=== PATIENT | male | born 1945 | race Caucasian/White ===

== ENCOUNTER 2021-01-30 01:04 | Emergency (ER) | payer MEDICARE, SELFPAY ==
--- NOTE | ~2021-01-30 | CT_ITS ---
EXAMINATION: CT HEAD WITHOUT CONTRAST CT CERVICAL SPINE WITHOUT CONTRAST CLINICAL INFORMATION: Fall COMPARISON: None. TECHNIQUE: Multidetector CT imaging of the head and cervical spine was performed without the use of intravenous contrast. Multiplanar reformats are reviewed. This CT examination was performed using dose optimization techniques as appropriate, variously including the following: *Automated exposure control *Adjustment of mA and/or kV according to patient size (this includes techniques or standardized protocols for targeted exams where dose is matched to indication/reason for exam; i.e. extremities or head) *Use of iterative reconstruction technique DLP: 467 mGy-cm. FINDINGS: There is no evidence of acute intracranial hemorrhage or territorial infarction. No abnormal mass effect or midline shift is seen. Ley to white matter differentiation is well preserved. No extra-axial fluid collections are identified. The ventricles are normal in size. Patchy subcortical and periventricular white matter low-attenuation changes statistically related to chronic white matter small vessel ischemic disease.. The osseous structures and soft tissues are normal. Small right mastoid air cell effusion. Paranasal sinuses are clear. Atlantooccipital alignment is maintained. The vertebral bodies and posterior elements align normally. No acute fracture or subluxation. Vertebral body heights are maintained. The cervicomedullary junction and spinal cord are grossly unremarkable. The paraspinal soft tissues are unremarkable. The imaged lung apices are clear CT/CT head/brain wo con IMPRESSION: No acute intracranial pathology. No cervical spine fracture or malalignment.
--- NOTE | ~2021-01-30 | CT_ITS ---
EXAMINATION: CT HEAD WITHOUT CONTRAST CT CERVICAL SPINE WITHOUT CONTRAST CLINICAL INFORMATION: Fall COMPARISON: None. TECHNIQUE: Multidetector CT imaging of the head and cervical spine was performed without the use of intravenous contrast. Multiplanar reformats are reviewed. This CT examination was performed using dose optimization techniques as appropriate, variously including the following: *Automated exposure control *Adjustment of mA and/or kV according to patient size (this includes techniques or standardized protocols for targeted exams where dose is matched to indication/reason for exam; i.e. extremities or head) *Use of iterative reconstruction technique DLP: 467 mGy-cm. FINDINGS: There is no evidence of acute intracranial hemorrhage or territorial infarction. No abnormal mass effect or midline shift is seen. Ley to white matter differentiation is well preserved. No extra-axial fluid collections are identified. The ventricles are normal in size. Patchy subcortical and periventricular white matter low-attenuation changes statistically related to chronic white matter small vessel ischemic disease.. The osseous structures and soft tissues are normal. Small right mastoid air cell effusion. Paranasal sinuses are clear. Atlantooccipital alignment is maintained. The vertebral bodies and posterior elements align normally. No acute fracture or subluxation. Vertebral body heights are maintained. The cervicomedullary junction and spinal cord are grossly unremarkable. The paraspinal soft tissues are unremarkable. The imaged lung apices are clear CT/CT cervical spine wo con IMPRESSION: No acute intracranial pathology. No cervical spine fracture or malalignment.
[2021-01-30 01:10] VITALS: BP 145/84; BP 150/84; PULSE 81; PULSE 88; RESP 16; TEMP 36.8; O2SAT 95; O2SAT 97; BMI 23.6
--- NOTE | 2021-01-30 01:29 | ED_ITS ---
HPI - Fall General Chief Complaint: Fall Stated Complaint: laceration above left eye s/p fall Time Seen by Provider: 01/30/21 01:29 Source: patient and park interpreter Mode of arrival: EMS History of Present Illness HPI Narrative: This is a 75-year-old male with significant past medical history of hypertension diabetes who states he drink 4-6 beers this evening and was going home and when he unlocked is door he fell through the front entrance. He denies tripping over anything and states that this has happened before. He denies any preceding palpitations, shortness of breath, dizziness but states that his vision was narrowing down. He denies losing consciousness but states that his glasses were on his head and does not recall when his last tetanus was administered. Related Data Allergies Allergy/AdvReac Type Severity Reaction Status Date / Time No Known Allergies Allergy Mild NOT Unverified 07/09/20 15:10 APPLICABLE Review of Systems Review of Systems: Pertinent positives and negatives as stated in HPI 10 point review of systems is otherwise negative. [facility] Past Medical History Source: nursing notes reviewed Medical History Diabetes Hypertension Social History Social History Advance Directives: No Advance Directives Information Provided: No Physical Exam Vital Signs: Vital Signs: Last Vital Signs Temp 98.2 F 01/30/21 01:10 Pulse 81 01/30/21 01:10 Resp 16 01/30/21 01:10 BP 145/84 H 01/30/21 01:10 Pulse Ox 95 01/30/21 01:10 Body Mass Index 23.6 VITAL SIGNS: Reviewed. GENERAL: Well developed, well nourished, in no acute distress. HEAD: Normocephalic/3 cm superior left eyebrow laceration that is hemostatic. EYES: PERRLA, EOMI EARS: Ext canals without abnormality, TMs non-bulging and non-erythematous NOSE: Nares patent bilateral OROPHARYNX: no oral lesions noted, posterior pharynx clear, no intraoral lesions noted NECK: C-collar in place, no midline cervical spine tenderness on palpation LUNGS: Normal breath sounds. No adventitious sounds or accessory muscle use. SpO2<95> CARDIOVASCULAR: Regular rate and rhythm without noted murmurs ABDOMEN: Soft, non-tender, non-distended with bowel sounds. NEUROLOGIC: Alert and oriented x 4. Course Course Course Narrative: This is a 75-year-old male with history and clinical prese ntation consistent with vasovagal episode secondary to alcohol intoxication, however will evaluate for evidence of alternative etiologies although felt to be less likely. Review of all investigations is negative for any acute findings to suggest alternate etiologies other than vasovagal near-syncope secondary to alcohol intoxication. Procedures Laceration Laceration 1: Site: face Size (cm): 2.5 Description: linear Depth: simple, single layer Pre-repair: wound explored, irrigated extensively and deep structures intact Skin layer closed with: other (Dermabond) - Fall Lab Data Result diagrams: 01/30/21 02:44 01/30/21 02:44 Labs: Lab Results 01/30/21 01/30/21 01/30/21 Range/Units 02:44 02:44 02:44 WBC 5.5 (4.8-10.8) X10*3/uL RBC 5.52 (4.60-5.80) X10*6/uL Hgb 14.6 (14.0-18.0) g/dl Hct 45.5 (42-52) % MCV 82.4 (80-98) fL MCH 26.4 L (27.0-33.0) pg MCHC 32.1 (31.0-36.0) g/dl RDW 14.4 (11.0-16.0) % Plt Count 178 (160-400) X10*3/uL MPV 10.2 (9.4-12.4) fL Immature Gran % (Auto) 0.4 (0.0-0.4) % Neut % (Auto) 46.2 (45-73) % Lymph % (Auto) 41.7 H (20-40) % [place] % (Auto) 8.2 (2-11) % Eos % (Auto) 3.1 (0-4) % Baso % (Auto) 0.4 (0-2) % Lymph # (Auto) 2.3 (1.2-4.9) X10*3/uL [place] # (Auto) 0.5 (0.1-1.2) X10*3/uL Eos # (Auto) 0.2 (0.0-0.4) X10*3/uL Baso # (Auto) 0.0 (0.0-0.2) X10*3/uL Abs Immat Gran (auto) 0.02 (0.00-0.03) X10*3/uL Absolute Neuts (auto) 2.6 (2.0-8.3) X10*3/uL Absolute Nucleated RBC 0.000 (0.0-0.012) X10*3/uL Nucleated RBC % (auto) 0.0 (0.0-0.2) /100WBC Sodium 139 (135-145) mmol/L Potassium 4.0 (3.3-5.1) mmol/L Chloride 107 (96-108) mmol/L Carbon Dioxide 19 L (22-29) mmol/L Anion Gap 17 (12-20) BUN 12 (9-16) mg/dL Creatinine 1.17 (0.5-1.4) mg/dL Estim Creat Clear Calc 53.7 Estimated GFR > 60 Random Glucose 160 H (60-115) mg/dL Calcium 8.4 (8.4-10.2) mg/dL Total Bilirubin 0.4 (0.0-1.0) mg/dL AST 15 (5-37) U/L ALT 13 (0-40) U/L Alkaline Phosphatase 137 H (39-117) U/L Total Protein 6.4 L (6.5-8.0) g/dL Albumin 4.0 (3.5-5.0) g/dL Ethyl Alcohol 217 mg/dL ECG Data Attestation: I personally reviewed and interpreted this ECG as follows: Interpretation: Normal sinus rhythm, HR-82, no evidence of acute ischemia, AK/QRS/QTC are within normal limits. Discharge Plan Discharge Clinical Impression: Vasovagal near-syncope, Alcohol intoxication, Laceration Patient Disposition: Home, Self-Care Instructions: Laceration (ED), Alcohol Intoxication (ED), Near Syncope (ED), Skin Adhesive Care (ED) Additional Instructions: Rupal un seguimiento con [place] proveedor de atenci?n primaria los pr?ximos 2-3 d?as para keon reevaluaci?n. No deje que el adhesivo cut?rosio se moje yolande 24 horas. No es necesario retirarlo en movimiento y se desprender? gradualmente por s? solo. No dude en volver al servicio de urgencias por cualquier empeoramiento shahid de los s?ntomas. Referrals: Physician,Unknown [Primary Care Provider] - 2 days Print Language: Kazakh
--- NOTE | 2021-01-30 01:31 | ECG_ITS ---
Test Reason : FALL Blood Pressure : / mmHG Vent. Rate : 082 BPM Atrial Rate : 082 BPM P-R Int : 176 ms QRS Dur : 098 ms QT Int : 390 ms P-R-T Axes : 068 042 073 degrees QTc Int : 455 ms Normal sinus rhythm Normal ECG When compared with ECG of 14-AUG-2018 11:47, No significant change was found Referred By: Christine Pang Electronically Signed By:SRINATH SALMERON
[2021-01-30] MEDS: Diphth,Pertus(ACell),Tet Adult 0.5 ML SYRINGE IM (02:09)
[2021-01-30 02:50] LABS: MANUAL DIFF FLAG NO
[2021-01-30 02:51] LABS: Basophils Percent Auto 0.4 % (0-2); Eosinophils Absolute Auto 0.2 X10*3/uL (0.0-0.4); Eosinophils Percent Auto 3.1 % (0-4); Hematocrit 45.5 % (42-52); Hemoglobin 14.6 g/dl (14.0-18.0); Imm Gran Abs Auto 0.02 X10*3/uL (0.00-0.03); Imm Gran Pct Auto 0.4 % (0.0-0.4); Lymphocytes Absolute Auto 2.3 X10*3/uL (1.2-4.9); Lymphocytes Percent Auto 41.7 % (20-40); Mean Corpuscular HGB Conc 32.1 g/dl (31.0-36.0); Mean Corpuscular Hemoglobin 26.4 pg (27.0-33.0); Mean Corpuscular Volume 82.4 fL (80-98); Mean Platelet Volume 10.2 fL (9.4-12.4); Monocytes Absolute Auto 0.5 X10*3/uL (0.1-1.2); Monocytes Percent Auto 8.2 % (2-11); Neutrophils Absolute Auto 2.6 X10*3/uL (2.0-8.3); Neutrophils Percent Auto 46.2 % (45-73); Platelet Count 178 X10*3/uL (160-400); Red Blood Count 5.52 X10*6/uL (4.60-5.80); Red Cell Distribution Width 14.4 % (11.0-16.0); White Blood Count 5.5 X10*3/uL (4.8-10.8)
[2021-01-30 03:18] LABS: Ethanol 217 mg/dL
[2021-01-30 03:21] LABS: Alanine Aminotransferase 13 U/L (0-40); Alkaline Phosphatase 137 U/L (39-117); Anion Gap 17 (12-20); Aspartate Amino Transferase 15 U/L (5-37); Bilirubin Total 0.4 mg/dL (0.0-1.0); Blood Urea Nitrogen 12 mg/dL (9-16); Calcium 8.4 mg/dL (8.4-10.2); Carbon Dioxide 19 mmol/L (22-29); Chloride 107 mmol/L (96-108); Creatinine Clr Calc Pharmacy 53.7; Estimated Glomerular Filt Rate > 60; Glucose Random 160 mg/dL (60-115); Sodium 139 mmol/L (135-145); Total Protein 6.4 g/dL (6.5-8.0)
== END 2021-01-30 04:25 | disposition home or self-care (01) ==
PROVIDERS: Emergency Provider Student in an Organized Health Care Education/Training Program
DX: R55 Syncope and collapse (principal); S01.112A Laceration without foreign body of left eyelid and periocular area, initial encounter; W01.0XXA Fall on same level from slipping, tripping and stumbling without subsequent striking against object, initial encounter; F10.920 Alcohol use, unspecified with intoxication, uncomplicated; Y90.7 Blood alcohol level of 200-239 mg/100 ml; I10 Essential (primary) hypertension; E11.9 Type 2 diabetes mellitus without complications; Z91.81 History of falling; Y93.89 Activity, other specified; Y92.038 Other place in apartment as the place of occurrence of the external cause; Y99.9 Unspecified external cause status
CPT/HCPCS: 12011; 36415; 70450; 72125; 80053; 80320; 85025; 90471; 90715; 93005; 99283; 99284

== ENCOUNTER 2021-02-15 02:13 | Inpatient (IN) | payer MEDICARE, SELFPAY ==
[2021-02-15] VITALS (8 sets, daily range): BP systolic 149–191; BP diastolic 84–97; PULSE 77–96; RESP 16–20; TEMP 36–37.2; O2SAT 96–98; BMI 23.6
--- NOTE | ~2021-02-15 | NM_ITS ---
EXAMINATION: NUCLEAR MEDICINE GI BLEEDING STUDY CLINICAL INFORMATION: Active bleeding seen on colonoscopy. Assess for source of bleed. COMPARISON: CT chest bleed study 02/15/2021 TECHNIQUE: 25 mCi technetium labeled RBCs injected intravenously. Images obtained over the abdomen and pelvis through 60 minutes. FINDINGS: There is no evidence of extravasation of the isotope into the gastrointestinal track. The site of gastrointestinal hemorrhage is not defined. NM/NM GI bleeding IMPRESSION: No extravasation of isotope into the GI tract through 60 minutes. The site of gastrointestinal hemorrhage is not defined.
--- NOTE | ~2021-02-15 | CT_ITS ---
EXAMINATION: CT ABDOMEN AND PELVIS WITHOUT AND WITH CONTRAST CLINICAL INFORMATION: GI bleed COMPARISON: 12/25/2008 TECHNIQUE: Multidetector volumetric imaging was performed from the superior aspect of the liver through the pubic symphysis before and after administration of 80 mL Omnipaque 350 IV contrast. Two-minute delayed acquisition also performed. Sagittal and coronal reformatted images were obtained on the technologist's workstation. This CT examination was performed using dose optimization techniques as appropriate, variously including the following: *Automated exposure control *Adjustment of mA and/or kV according to patient size (this includes techniques or standardized protocols for targeted exams where dose is matched to indication/reason for exam; i.e. extremities or head) *Use of iterative reconstruction technique DLP: 1180 mGy-cm. FINDINGS: LUNG BASES: The lung bases are clear. Coronary artery calcifications are present. LIVER, GALLBLADDER, AND BILIARY TREE: The liver is normal in size, shape, and attenuation. No focal hepatic lesion or biliary ductal dilatation is present. Cholelithiasis. No gallbladder wall thickening or pericholecystic fluid. PANCREAS: Unremarkable. SPLEEN: Unremarkable. ADRENAL GLANDS: Unremarkable. KIDNEYS AND URETERS: The kidneys are normal in size, shape, and attenuation. No hydronephrosis, hydroureter, or calculi seen. No perinephric stranding. Right upper pole 1.1 cm simple cyst. No follow-up necessary. BLADDER: Unremarkable. GASTROINTESTINAL TRACT: The stomach is unremarkable. Duodenal diverticulum noted. The small bowel is normal in caliber. There is no obstruction. Normal appendix. There is diffuse colonic diverticulosis. No diverticulitis. There is no intraluminal arterial blush of contrast. No pooling of contrast on the delayed acquisition to suggest active GI bleed. Of note, there is significant high attenuation seen throughout the colon on the noncontrast acquisition in the right hemicolon associated with multiple diverticula. ABDOMINAL WALL: No significant hernia is appreciated. LYMPH NODES: Normal. VASCULAR: Aortobiiliac stent graft in place within an abdominal aortic aneurysm. PELVIC VISCERA: The prostate and seminal vesicles are unremarkable. OSSEOUS STRUCTURES: No acute or suspicious osseous abnormality. Multilevel degenerative changes of the spine. CT/CT gi bleed abd pel wo/w con IMPRESSION: No evidence of active gastrointestinal bleed. Cholelithiasis.
--- NOTE | 2021-02-15 02:32 | ED_ITS ---
HPI - GI Bleed General Chief complaint: GI Bleed Stated complaint: Rectal Bleeding Time Seen by Provider: 02/15/21 02:28 Source: patient, family () and nipple maker Mode of arrival: ambulatory History of Present Illness HPI Narrative: 75-year-old male with history of hypertension, PCI, asthma who presents with onset of chest tightness and painless rectal bleeding without abdominal pain at 10:00 p.m. this evening. Patient reports 3 episodes of ?like a water faucet?. Patient states that he has a history of peptic ulcer disease and that he has had rectal bleeding 1 other time in [place]. He states his last colonoscopy was approximately 10 years ago and he does not recall being told that he had diverticulosis. The chest pain is tightness, and has improved since onset at 10:00 p.m., radiating into the back but not associated with dizziness, nausea, diaphoresis, shortness of breath. Related Data Home Medications Medication Instructions Recorded Confirmed albuterol sulfate 1 vial INHALATION QID PRN 02/15/21 02/15/21 allopurinol 1 tab PO DAILY 02/15/21 02/15/21 aspirin 1 tab PO DAILY 02/15/21 02/15/21 cholecalciferol (vitamin D3) 1 cap PO DAILY 02/15/21 02/15/21 loratadine 1 tab PO DAILY PRN 02/15/21 02/15/21 losartan 1 tab PO DAILY 02/15/21 02/15/21 Allergies Allergy/AdvReac Type Severity Reaction Status Date / Time No Known Allergies Allergy Mild NOT Unverified 07/09/20 15:10 APPLICABLE Review of Systems Review of Systems: Pertinent positives and negatives as stated in HPI 10 point review of systems is otherwise negative. [facility] Past Medical History Source: nursing notes reviewed Medical History Diabetes Hypertension Social History Social History Alcohol intake: current Alcohol intake frequency: 3 or more drinks per day Smoking Status: Current every day smoker Use of substances other than those prescribed or required for medical reasons: No Advance Directives: No Advance Directives Information Provided: No Physical Exam Vital Signs: Vital Signs: Last Vital Signs Temp 98.0 F 02/15/21 02:29 Pulse 96 02/15/21 02:29 Resp 18 02/15/21 02:29 BP 191/97 H 02/15/21 02:29 Pulse Ox 97 02/15/21 02:29 Body Mass Index 23.6 VITAL SIGNS: Reviewed. GENERAL: Well developed, well nourished, in no acute distress. HEAD: Normocephalic/atraumatic EYES: PERRLA, EOMI OROPHARYNX: no oral lesions noted, posterior pharynx clear NECK: Supple, no adenopathy LUNGS: Normal breath sounds. SpO2<97> CARDIOVASCULAR: Regular rate and rhythm without noted murmurs ABDOMEN: Soft, non-tender, non-distended with bowel sounds. LYUDMILA: No inflamed external hemorrhoids noted, minimal volume and rectal vault, dark/maroon stool on finger tip, good rectal tone. NEUROLOGIC: Alert and oriented x 4. Course Course Course Narrative: 75-year-old male with history and clinical presentation consistent with GI bleed secondary to diverticular/ischemic, less likely hemorrhoidal or upper GI bleed. Will concomitantly rule out ACS, ulcer but doubt the former. Review of all investigations indicative of GI bleed with hematocrit decreased from 45.5 on 01/[address] scan negative for active GI bleed. Troponin is 4.4 without changes noted on EKG and 2nd troponin will be repeated at 6:00 a.m., but felt to be less likely the etiology for patient's epigastric discomfort. This case was discussed with both GI as well as the inpatient hospitalist team who is agreeable for admission. Reevaluation(s) Reevaluation #1: I discussed case with Dr. Crabtree who agrees with current plan of care and will see the patient in the morning. Time: 04:22 [facility] - GI Bleed Lab Data Result diagrams: 02/15/21 02:47 02/15/21 02:47 Labs: Lab Results 02/15/21 02/15/21 02/15/21 Range/Units 02:47 02:47 02:47 WBC 6.6 (4.8-10.8) X10*3/uL RBC 4.90 (4.60-5.80) X10*6/uL Hgb 13.4 L (14.0-18.0) g/dl Hct 41.2 L (42-52) % MCV 84.1 (80-98) fL MCH 27.3 (27.0-33.0) pg MCHC 32.5 (31.0-36.0) g/dl RDW 14.9 (11.0-16.0) % Plt Count 190 (160-400) X10*3/uL MPV 10.1 (9.4-12.4) fL Immature Gran % (Auto) 0.3 (0.0-0.4) % Neut % (Auto) 63.0 (45-73) % Lymph % (Auto) 23.8 (20-40) % [place] % (Auto) 8.1 (2-11) % Eos % (Auto) 3.9 (0-4) % Baso % (Auto) 0.9 (0-2) % Lymph # (Auto) 1.6 (1.2-4.9) X10*3/uL [place] # (Auto) 0.5 (0.1-1.2) X10*3/uL Eos # (Auto) 0.3 (0.0-0.4) X10*3/uL Baso # (Auto) 0.1 (0.0-0.2) X10*3/uL Abs Immat Gran (auto) 0.02 (0.00-0.03) X10*3/uL Absolute Neuts (auto) 4.2 (2.0-8.3) X10*3/uL Absolute Nucleated RBC 0.000 (0.0-0.012) X10*3/uL Nucleated RBC % (auto) 0.0 (0.0-0.2) /100WBC PT 12.9 (10.8-13.0) SEC INR 1.1 (0.9-1.1) Sodium 139 (135-145) mmol/L Potassium 3.7 (3.3-5.1) mmol/L Chloride 106 (96-108) mmol/L Carbon Dioxide 22 (22-29) mmol/L Anion Gap 15 (12-20) BUN 12 (9-16) mg/dL Creatinine 1.02 (0.5-1.4) mg/dL Estim Creat Clear Calc 61.6 Estimated GFR > 60 Random Glucose 207 H (60-115) mg/dL Calcium 8.7 (8.4-10.2) mg/dL Total Bilirubin 0.6 (0.0-1.0) mg/dL AST 17 (5-37) U/L ALT 15 (0-40) U/L Alkaline Phosphatase 119 H (39-117) U/L Troponin I High Sens (<3.5-35.0) ng/L Total Protein 6.3 L (6.5-8.0) g/dL Albumin 4.0 (3.5-5.0) g/dL Lipase 63 (8-78) U/L Stool Occult Blood (NEGATIVE) Ethyl Alcohol mg/dL COVID-19 ([facility]) (Negative) COVID-19 Clin Com Blood Type Antibody Screen 02/15/21 02/15/21 02/15/21 Range/Units 02:47 02:47 02:47 WBC (4.8-10.8) X10*3/uL RBC (4.60-5.80) X10*6/uL Hgb (14.0-18.0) g/dl Hct (42-52) % MCV (80-98) fL MCH (27.0-33.0) pg MCHC (31.0-36.0) g/dl RDW (11.0-16.0) % Plt Count (160-400) X10*3/uL MPV (9.4-12.4) fL Immature Gran % (Auto) (0.0-0.4) % Neut % (Auto) (45-73) % Lymph % (Auto) (20-40) % [place] % (Auto) (2-11) % Eos % (Auto) (0-4) % Baso % (Auto) (0-2) % Lymph # (Auto) (1.2-4.9) X10*3/uL [place] # (Auto) (0.1-1.2) X10*3/uL Eos # (Auto) (0.0-0.4) X10*3/uL Baso # (Auto) (0.0-0.2) X10*3/uL Abs Immat Gran (auto) (0.00-0.03) X10*3/uL Absolute Neuts (auto) (2.0-8.3) X10*3/uL Absolute Nucleated RBC (0.0-0.012) X10*3/uL Nucleated RBC % (auto) (0.0-0.2) /100WBC PT (10.8-13.0) SEC INR (0.9-1.1) Sodium (135-145) mmol/L Potassium (3.3-5.1) mmol/L Chloride (96-108) mmol/L Carbon Dioxide (22-29) mmol/L Anion Gap (12-20) BUN (9-16) mg/dL Creatinine (0.5-1.4) mg/dL Estim Creat Clear Calc Estimated GFR Random Glucose (60-115) mg/dL Calcium (8.4-10.2) mg/dL Total Bilirubin (0.0-1.0) mg/dL AST (5-37) U/L ALT (0-40) U/L Alkaline Phosphatase (39-117) U/L Troponin I High Sens 4.4 (<3.5-35.0) ng/L Total Protein (6.5-8.0) g/dL Albumin (3.5-5.0) g/dL Lipase (8-78) U/L Stool Occult Blood POSITIVE (NEGATIVE) Ethyl Alcohol < 10 mg/dL COVID-19 ([facility]) (Negative) COVID-19 Clin Com Blood Type Antibody Screen 02/15/21 02/15/21 02/15/21 Range/Units 02:47 02:47 02:52 WBC (4.8-10.8) X10*3/uL RBC (4.60-5.80) X10*6/uL Hgb (14.0-18.0) g/dl Hct (42-52) % MCV (80-98) fL MCH (27.0-33.0) pg MCHC (31.0-36.0) g/dl RDW (11.0-16.0) % Plt Count (160-400) X10*3/uL MPV (9.4-12.4) fL Immature Gran % (Auto) (0.0-0.4) % Neut % (Auto) (45-73) % Lymph % (Auto) (20-40) % [place] % (Auto) (2-11) % Eos % (Auto) (0-4) % Baso % (Auto) (0-2) % Lymph # (Auto) (1.2-4.9) X10*3/uL [place] # (Auto) (0.1-1.2) X10*3/uL Eos # (Auto) (0.0-0.4) X10*3/uL Baso # (Auto) (0.0-0.2) X10*3/uL Abs Immat Gran (auto) (0.00-0.03) X10*3/uL Absolute Neuts (auto) (2.0-8.3) X10*3/uL Absolute Nucleated RBC (0.0-0.012) X10*3/uL Nucleated RBC % (auto) (0.0-0.2) /100WBC PT (10.8-13.0) SEC INR (0.9-1.1) Sodium (135-145) mmol/L Potassium (3.3-5.1) mmol/L Chloride (96-108) mmol/L Carbon Dioxide (22-29) mmol/L Anion Gap (12-20) BUN (9-16) mg/dL Creatinine (0.5-1.4) mg/dL Estim Creat Clear Calc Estimated GFR Random Glucose (60-115) mg/dL Calcium (8.4-10.2) mg/dL Total Bilirubin (0.0-1.0) mg/dL AST (5-37) U/L ALT (0-40) U/L Alkaline Phosphatase (39-117) U/L Troponin I High Sens (<3.5-35.0) ng/L Total Protein (6.5-8.0) g/dL Albumin (3.5-5.0) g/dL Lipase Cancelled (8-78) U/L Stool Occult Blood (NEGATIVE) Ethyl Alcohol mg/dL COVID-19 ([facility]) Negative (Negative) COVID-19 Clin Com See Note Blood Type B Positive Antibody Screen NEGATIVE ECG Data Attestation: I personally reviewed and interpreted this ECG as follows: Prior ECG tracings: available for review (01/30/2021, no acute changes on comparison) Interpretation: Normal sinus rhythm, HR -90, no evidence of acute ischemia, CT/QRS/QTC are within normal limits. Discharge Plan Discharge Clinical Impression: Acute GI bleeding, Chest pain Patient Disposition: Admitted As Inpatient
--- NOTE | 2021-02-15 02:45 | ECG_ITS ---
Test Reason : GI BLEED Blood Pressure : / mmHG Vent. Rate : 090 BPM Atrial Rate : 090 BPM P-R Int : 154 ms QRS Dur : 092 ms QT Int : 364 ms P-R-T Axes : 068 045 088 degrees QTc Int : 445 ms Normal sinus rhythm Normal ECG When compared with ECG of 30-JAN-2021 02:36, No significant change was found Referred By: Christine Pang Electronically Signed By:CHEKO DEL CID MD
[2021-02-15 02:58] LABS: MANUAL DIFF FLAG NO
[2021-02-15 03:00] LABS: Basophils Absolute Auto 0.1 X10*3/uL (0.0-0.2); Basophils Percent Auto 0.9 % (0-2); Eosinophils Absolute Auto 0.3 X10*3/uL (0.0-0.4); Eosinophils Percent Auto 3.9 % (0-4); Hematocrit 41.2 % (42-52); Hemoglobin 13.4 g/dl (14.0-18.0); Imm Gran Abs Auto 0.02 X10*3/uL (0.00-0.03); Imm Gran Pct Auto 0.3 % (0.0-0.4); Lymphocytes Absolute Auto 1.6 X10*3/uL (1.2-4.9); Lymphocytes Percent Auto 23.8 % (20-40); Mean Corpuscular HGB Conc 32.5 g/dl (31.0-36.0); Mean Corpuscular Hemoglobin 27.3 pg (27.0-33.0); Mean Corpuscular Volume 84.1 fL (80-98); Mean Platelet Volume 10.1 fL (9.4-12.4); Monocytes Absolute Auto 0.5 X10*3/uL (0.1-1.2); Monocytes Percent Auto 8.1 % (2-11); Neutrophils Absolute Auto 4.2 X10*3/uL (2.0-8.3); OBS Int Ctl Valid YES; OBS1 POSITIVE (NEGATIVE); Platelet Count 190 X10*3/uL (160-400); Red Cell Distribution Width 14.9 % (11.0-16.0); White Blood Count 6.6 X10*3/uL (4.8-10.8)
[2021-02-15] MEDS: Pantoprazole Sodium 40 MG/10 ML VIAL 80 MG IVPUSH (03:03)
[2021-02-15 03:05] LABS: INTERNATIONAL NORM RATIO 1.1 (0.9-1.1); Prothrombin Time 12.9 SEC (10.8-13.0)
[2021-02-15 03:17] LABS: COVID-19 Test Negative (Negative); IDNOW Serial# 9DD0AD1C
[2021-02-15 03:19] LABS: Ethanol < 10 mg/dL
[2021-02-15 03:22] LABS: Alanine Aminotransferase 15 U/L (0-40); Alkaline Phosphatase 119 U/L (39-117); Anion Gap 15 (12-20); Aspartate Amino Transferase 17 U/L (5-37); Bilirubin Total 0.6 mg/dL (0.0-1.0); Blood Urea Nitrogen 12 mg/dL (9-16); Calcium 8.7 mg/dL (8.4-10.2); Carbon Dioxide 22 mmol/L (22-29); Chloride 106 mmol/L (96-108); Creatinine Clr Calc Pharmacy 61.6; Estimated Glomerular Filt Rate > 60; Glucose Random 207 mg/dL (60-115); Potassium 3.7 mmol/L (3.3-5.1); Sodium 139 mmol/L (135-145); Total Protein 6.3 g/dL (6.5-8.0)
[2021-02-15 03:26] LABS: Troponin-I High Sensitivity 4.4 ng/L (<3.5-35.0)
[2021-02-15 03:29] LABS: Lipase 63 U/L (8-78)
[2021-02-15] MEDS: iohexoL 350 MG/ML 100 ML INFUS..BTL 80 ML IV (03:48)
--- NOTE | 2021-02-15 04:40 | P.HPHOSP_ITS ---
History of Present Illness Date of Service: 02/15/21 Chief Complaint: GI bleed This is a 75-year-old male with past medical history abuse who present to hospital with complaints of lower GI bleed. at bedside helped with history as patient is Serbian-speaking only. Patient reports that he went to the [place] around 10:00 p.m. and had 1 large episode of bloody bowel movement, he had 2 more episodes following that while at home, and 1 more smaller episode in the ED. denies abdominal pain, denies nausea or vomiting, no diarrhea constipation. He report he had 1 similar episode 10 years ago and at that time he was told that he had ulcers in the stomach. He denies taking any Aleve Motrin no ibuprofen or any other NSAID. He is of low complaining of midsternal chest tightness that is reproducible nonradiating, 5/10, that has now resolved. He has no shortness of breath, no headache or change in vision. He is complaining of decreased urine output and dysuria. Denies any fever or chills. No lower extremity edema. No numbness or tingling On arrival to the ED patient hemodynamically stable Lab significant for hemoglobin of 13.4 which has dropped from 14.6 on 01/30/21, hematocrit of 41.2, alk-phos of 119, CMP otherwise unremarkable. Positive stool occult blood, negative COVID Abd CT shows diverticulosis and nothing to suggest acute GI bleed Review of Systems Review of Systems: Yes all other systems are reviewed and are negative [facility] Medical History Diabetes Hypertension Social History Alcohol intake: current Alcohol intake frequency: 3 or more drinks per day Smoking Status: Current every day smoker Use of substances other than those prescribed or required for medical reasons: No Advance Directives: No Advance Directives Information Provided: No Meds Allergies Allergy/AdvReac Type Severity Reaction Status Date / Time No Known Allergies Allergy Mild NOT Unverified 07/09/20 15:10 APPLICABLE Home Medications Medication Instructions Recorded Confirmed Last Taken Type albuterol sulfate 1 vial INHALATION QID PRN 02/15/21 02/15/21 1 Day Ago History ~02/14/21 allopurinol 1 tab PO DAILY 02/15/21 02/15/21 1 Day Ago History ~02/14/21 aspirin 1 tab PO DAILY 02/15/21 02/15/21 1 Day Ago History ~02/14/21 cholecalciferol (vitamin D3) 1 cap PO DAILY 02/15/21 02/15/21 1 Day Ago History ~02/14/21 loratadine 1 tab PO DAILY PRN 02/15/21 02/15/21 1 Day Ago History ~02/14/21 losartan 1 tab PO DAILY 02/15/21 02/15/21 1 Day Ago History ~02/14/21 Physical Exam Vital Signs and Narrative: Vital Signs: Last Vital Signs Temp 98.0 F 02/15/21 02:29 Pulse 96 02/15/21 02:29 Resp 18 02/15/21 02:29 BP 191/97 H 02/15/21 02:29 Pulse Ox 97 02/15/21 02:29 Body Mass Index 23.6 Const: General: cooperative and no acute distress Orientation/consciousness: patient oriented x3 Eyes: General: appearance normal, both eyes and all related structures Resp: Effort & Inspection: normal respiratory effort and able to speak in complete sentences Cardio: Rate: regular rate Rhythm: regular rhythm GI: Palpation (GI): Soft to palpation Auscultation: normal bowel sounds Skin: General skin exam: no rashes or lesions noted Neuro: General: patient oriented x3 Cognition (Neuro): normal cognition Extrem: General: Yes normal to inspection and Yes no pedal edema Results Labs CBC and Chem 7: 02/15/21 02:47 02/15/21 02:47 Labs: Laboratory Results - last 24 hr 02/15/21 02/15/21 02/15/21 02:47 02:47 02:47 MCV 84.1 MCH 27.3 MCHC 32.5 RDW 14.9 Plt Count 190 MPV 10.1 Immature Gran % (Auto) 0.3 Neut % (Auto) 63.0 Lymph % (Auto) 23.8 [place] % (Auto) 8.1 Eos % (Auto) 3.9 Baso % (Auto) 0.9 Lymph # (Auto) 1.6 [place] # (Auto) 0.5 Eos # (Auto) 0.3 Baso # (Auto) 0.1 Abs Immat Gran (auto) 0.02 Absolute Neuts (auto) 4.2 Absolute Nucleated RBC 0.000 Nucleated RBC % (auto) 0.0 PT 12.9 INR 1.1 Anion Gap 15 Estim Creat Clear Calc 61.6 Estimated GFR > 60 Random Glucose 207 H Calcium 8.7 Total Bilirubin 0.6 AST 17 ALT 15 Alkaline Phosphatase 119 H Troponin I High Sens Total Protein 6.3 L Albumin 4.0 Lipase 63 Stool Occult Blood Ethyl Alcohol COVID-19 (ERENDIRA) COVID-19 [employer] Com Blood Type Antibody Screen 02/15/21 02/15/21 02/15/21 02:47 02:47 02:47 MCV MCH MCHC RDW Plt Count MPV Immature Gran % (Auto) Neut % (Auto) Lymph % (Auto) [place] % (Auto) Eos % (Auto) Baso % (Auto) Lymph # (Auto) [place] # (Auto) Eos # (Auto) Baso # (Auto) Abs Immat Gran (auto) Absolute Neuts (auto) Absolute Nucleated RBC Nucleated RBC % (auto) PT INR Anion Gap Estim Creat Clear Calc Estimated GFR Random Glucose Calcium Total Bilirubin AST ALT Alkaline Phosphatase Troponin I High Sens 4.4 Total Protein Albumin Lipase Stool Occult Blood POSITIVE Ethyl Alcohol < 10 COVID-19 (ERENDIRA) COVID-19 [employer] Com Blood Type Antibody Screen 02/15/21 02/15/21 02/15/21 02:47 02:47 02:52 MCV MCH MCHC RDW Plt Count MPV Immature Gran % (Auto) Neut % (Auto) Lymph % (Auto) [place] % (Auto) Eos % (Auto) Baso % (Auto) Lymph # (Auto) [place] # (Auto) Eos # (Auto) Baso # (Auto) Abs Immat Gran (auto) Absolute Neuts (auto) Absolute Nucleated RBC Nucleated RBC % (auto) PT INR Anion Gap Estim Creat Clear Calc Estimated GFR Random Glucose Calcium Total Bilirubin AST ALT Alkaline Phosphatase Troponin I High Sens Total Protein Albumin Lipase Cancelled Stool Occult Blood Ethyl Alcohol COVID-19 (ERENDIRA) Negative COVID-19 Video[employer]ax Com See Note Blood Type B Positive Antibody Screen NEGATIVE Imaging Radiologist's Impressions: Impressions Abdomen/Pelvis CT 02/15/21 02:49 IMPRESSION: No evidence of active gastrointestinal bleed. Cholelithiasis. Assessment and Plan (1) Acute GI bleeding: Status: Acute (2) Chest pain: Status: Acute 75-year-old male with past medical history of hypertension diabetes who presents the hospital GI bleed. # acute GI bleed - most likely diverticular bleed - CT of the abdomen/pelvic showed significant amount of diverticulosis throughout the colon with no evidence of acute GI bleed - occult stool blood positive - hemodynamically stable - denies ever undergoing colonoscopy in the past Plan: - will start him on Protonix 40 IV b.i.d. - stop aspirin - NPO - consult GI #Chest pain - unlikely to be cardiac - trop -ve x2, no ekg changes - follow for any recurrence # Dysuria - UA -ve for any infection # DM - LDSSI - Diabetic diet # Alcohol abuse - Drinks 3-4 drinks daily - last drink >3 days - No hx of withdrawal and no current evidence of withdrawal - alcohol level -ve - Will place on CIWA, if scores high, start phenobarb - thiamine and folic acid supplement # HTN - Elevated - resume home med DVT ppx: SCDs
[2021-02-15 04:41] LABS: Glucose Urine UA 100 MG/DL (NEG); Leukocyte Esterase Urine NEG (NEG); Nitrite Urine NEG (NEG); PH 5.5 (5.0-8.0); Urine Blood NEG (NEG); Urine Ketones NEG (NEG); Urine Protein NEG (NEG-TRACE)
[2021-02-15 04:44] LABS: Appearance Urine CLEAR; Color Urine STRAW; UACC Culture Trigger NO
[2021-02-15 07:16] LABS: Glucose, Whole Blood 205 mg/dL (60-115)
[2021-02-15] MEDS: Insulin Lispro 100 UNIT/ML 3 ML VIAL SUBCUT (07:23)
[2021-02-15 07:26] LABS: Troponin-I High Sensitivity 4.7 ng/L (<3.5-35.0)
[2021-02-15] MEDS: 0.9 % Sodium Chloride Flush 3 ML SYRINGE IVFLUSH ×2 (07:39→16:15)
[2021-02-15] MEDS: allopurinoL 300 MG TABLET PO (08:41)
[2021-02-15] MEDS: Thiamine HCL 100 MG TABLET PO (08:41)
[2021-02-15] MEDS: Losartan Potassium 50 MG TABLET PO (08:41)
[2021-02-15] MEDS: Folic Acid 1 MG TABLET PO (08:41)
[2021-02-15 10:34] LABS: Hematocrit 40.1 % (42-52)
[2021-02-15 12:19] LABS: Glucose, Whole Blood 156 mg/dL (60-115)
--- NOTE | 2021-02-15 13:12 | PM.GICN ---
History of Present Illness Data of Consult Service Date: 02/15/21 Requesting physician: Jenna Ellison Primary Care Provider: Unknown Physician HPI Reason for consult: anemia 75-year-old male with past medical history of HTN, and gout as well as alcohol abuse who I am seeing for assessment Patient had 3-4 bloody bowel motions overnight. denies abdominal pain, denies nausea or vomiting, no diarrhea constipation.He did have some chest discomfort which resolved. He denies taking any Alleve, Motrin, ibuprofen or any other NSAID. Does admit to drinking shots of whiskey ot vodka once a month a least, feels he does not have an alcohol issue. This had happened in the past and he was told it was attributable to ulcers in stomach. Lab significant for hemoglobin of 13.4 which has dropped from 14.6 on 01/30/21, hematocrit of 41.2, alk-phos of 119, CMP otherwise unremarkable. Positive stool occult blood, negative COVID, trop neg x [address] shows [place] diverticulosis, no acute bleeding noted but high density material noted in right colon Review of Systems Review of Systems: Pertinent positives and negatives as stated in HPI 10 point review of systems is otherwise negative. Yes all other systems are reviewed and are negative [facility] Past Medical History Medical History Diabetes Hypertension Social History Social History Household Members: None Housing: Apartment Do you presently have visiting nurse or other home services: Yes Alcohol intake: current Alcohol intake frequency: 3 or more drinks per day Smoking Status: Never smoker Second Hand Smoke Exposure: No Use of substances other than those prescribed or required for medical reasons: No Have you been hit, kicked, punched, or otherwise hurt by someone within the past year? If so, by whom?: No Do you feel safe in your current relationship?: No Is there a partner from a previous relationship who is making you feel unsafe now?: No Advance Directives: No Advance Directives Information Provided: No Do you have thoughts of harming others: None Do you have a plan to hurt others: No Plan Recently lost weight without trying: No Meds Allergies Allergy/AdvReac Type Severity Reaction Status Date / Time No Known Allergies Allergy Mild NOT Unverified 07/09/20 15:10 APPLICABLE Active Medications: Current Medications Generic Name Dose Route Start Last Admin Trade Name Freq PRN Reason Stop Dose Admin Acetaminophen 650 mg 02/15/21 04:48 Acetaminophen 325 Mg Tablet PO Q6H PRN Pain, Mild (Pain Scale 1-3) Albuterol Sulfate 2.5 mg 02/15/21 04:48 Albuterol Sulfate (0.083%) 2.5 Mg/3 Ml Vial.Neb INHALE QID PRN Wheezing Allopurinol 300 mg 02/15/21 09:00 02/15/21 08:41 Allopurinol 300 Mg Tablet PO 300 mg DAILY FLAVIO Administration Docusate Sodium 100 mg 02/15/21 04:48 Docusate Sodium 100 Mg Capsule PO DAILY PRN Constipation Folic Acid 1 mg 02/15/21 09:00 02/15/21 08:41 Folic Acid 1 Mg Tablet PO 1 mg DAILY FLAVIO Administration Insulin Human Lispro 0 unit 02/15/21 07:30 02/15/21 12:33 Insulin Lispro 100 Unit/Ml 3 Ml Vial SUBCUT Not Given QIDACHS [facility] Protocol Losartan Potassium 50 mg 02/15/21 09:00 02/15/21 08:41 Losartan Potassium 50 Mg Tablet PO 50 mg DAILY [facility] Administration Protocol Ondansetron HCl 4 mg 02/15/21 04:48 Ondansetron Hcl 4 Mg/2 Ml Vial IVPUSH Q8H PRN Nausea and Vomiting Pantoprazole Sodium 40 mg 02/15/21 16:30 Pantoprazole Sodium 40 Mg/10 Ml Vial IVPUSH BID@0630,1630 [facility] Sodium Chloride 3 ml 02/15/21 08:00 02/15/21 07:39 0.9 % Sodium Chloride Flush 3 Ml Syringe IVFLUSH 3 ml QSHIFT [facility] Administration Thiamine HCl 100 mg 02/15/21 09:00 02/15/21 08:41 Thiamine Hcl 100 Mg Tablet PO 100 mg DAILY [facility] Administration Home Medications Medication Instructions Recorded Confirmed Last Taken Type albuterol sulfate 1 vial INHALATION QID PRN 02/15/21 02/15/21 1 Day Ago History ~02/14/21 allopurinol 1 tab PO DAILY 02/15/21 02/15/21 1 Day Ago History ~02/14/21 aspirin 1 tab PO DAILY 02/15/21 02/15/21 1 Day Ago History ~02/14/21 cholecalciferol (vitamin D3) 1 cap PO DAILY 02/15/21 02/15/21 1 Day Ago History ~02/14/21 loratadine 1 tab PO DAILY PRN 02/15/21 02/15/21 1 Day Ago History ~02/14/21 losartan 1 tab PO DAILY 02/15/21 02/15/21 1 Day Ago History ~02/14/21 Physical Exam Vital Signs: Vital Signs: Last Vital Signs Temp 97.0 F 02/15/21 08:00 Pulse 91 02/15/21 08:41 Resp 18 02/15/21 08:00 BP 165/88 H 02/15/21 08:41 Pulse Ox 98 02/15/21 08:00 Body Mass Index 23.6 Const: General: cooperative and no acute distress Orientation/consciousness: patient oriented x3 Eyes: General: appearance normal, both eyes and all related structures Resp: Effort & Inspection: normal respiratory effort and able to speak in complete sentences Cardio: Rate: regular rate Rhythm: regular rhythm GI: Palpation (GI): Soft to palpation Auscultation: normal bowel sounds Skin: General skin exam: no rashes or lesions noted Neuro: General: patient oriented x3 Cognition (Neuro): normal cognition Extrem: General: Yes normal to inspection and Yes no pedal edema Results Labs CBC & Chem 7: 02/15/21 21:17 02/15/21 02:47 Labs: Short CBC 02/15/21 02/15/21 Range/Units 02:47 10:28 WBC 6.6 (4.8-10.8) X10*3/uL Hgb 13.4 L 13.0 L (14.0-18.0) g/dl Hct 41.2 L 40.1 L (42-52) % Plt Count 190 (160-400) X10*3/uL BMP 02/15/21 02:47 Sodium 139 Potassium 3.7 Chloride 106 Carbon Dioxide 22 BUN 12 Creatinine 1.02 Calcium 8.7 Liver Function 02/15/21 Range/Units 02:47 Total Bilirubin 0.6 (0.0-1.0) mg/dL AST 17 (5-37) U/L ALT 15 (0-40) U/L Alkaline Phosphatase 119 H (39-117) U/L Albumin 4.0 (3.5-5.0) g/dL Urine 02/15/21 Range/Units 04:34 Urine Color STRAW Urine Appearance CLEAR Urine pH 5.5 (5.0-8.0) Ur Specific [place] 1.010 (1.005-1.025) Urine Protein NEG (NEG-TRACE) MG/DL Urine Glucose (UA) 100 H (NEG) MG/DL Assessment and Plan (1) Acute GI bleeding: Status: Acute 1/ Acute blood loss anemia, hemodynamically stable, ddx: diverticular bleed, hemorrhoidal bleeding, polyp or mass, upper gI bleed with rapid transit e.g PUD, erosive gastritis from alcohol use PLAN: 1/ Allow clears 2/ PPI IV-40 mg pantoprazole bid 3/ prep for egd and colon tomorrow 4/ transfuse if hgb < 7 g/dl
--- NOTE | 2021-02-15 13:46 | HO.PM.IMPN ---
Subjective Subjective Date of Service: 02/15/21 <Shelly Shelley NP - Last Filed: 02/15/21 16:02> 02/15/21 <Stas Palacios MD - Last Filed: 02/15/21 16:35> Interval History: Follow up GI bleed. Still some bleeding this morning. No abdominal pain or vomiting. <Shelly Shelley NP - Last Filed: 02/15/21 16:02> Physical Exam Vital Signs: Vital Signs: Last Vital Signs Temp 97.0 F 02/15/21 08:00 Pulse 91 02/15/21 08:41 Resp 18 02/15/21 08:00 BP 165/88 H 02/15/21 08:41 Pulse Ox 98 02/15/21 08:00 Body Mass Index 23.6 <Shelly Shelley NP - Last Filed: 02/15/21 16:02> Appearing in no acute distress lung sounds are clear to auscultation heart regular rate rhythm, clear S1, S2 positive bowel sounds, abdomen is soft, nontender neuro patient is alert x3, no focal deficits <Shelly Shelley NP - Last Filed: 02/15/21 16:02> Objective Data Current Medications Generic Name Dose Route Start Last Admin Trade Name Freq PRN Reason Stop Dose Admin Acetaminophen 650 mg 02/15/21 04:48 Acetaminophen 325 Mg Tablet PO Q6H PRN Pain, Mild (Pain Scale 1-3) Albuterol Sulfate 2.5 mg 02/15/21 04:48 Albuterol Sulfate (0.083%) 2.5 Mg/3 Ml Vial.Neb INHALE QID PRN Wheezing Allopurinol 300 mg 02/15/21 09:00 02/15/21 08:41 Allopurinol 300 Mg Tablet PO 300 mg DAILY FLAVIO Administration Docusate Sodium 100 mg 02/15/21 04:48 Docusate Sodium 100 Mg Capsule PO DAILY PRN Constipation Folic Acid 1 mg 02/15/21 09:00 02/15/21 08:41 Folic Acid 1 Mg Tablet PO 1 mg DAILY FLAVIO Administration Insulin Human Lispro 0 unit 02/15/21 07:30 02/15/21 12:33 Insulin Lispro 100 Unit/Ml 3 Ml Vial SUBCUT Not Given QIDACHS [facility] Protocol Losartan Potassium 50 mg 02/15/21 09:00 02/15/21 08:41 Losartan Potassium 50 Mg Tablet PO 50 mg DAILY FLAVIO Administration Protocol Ondansetron HCl 4 mg 02/15/21 04:48 Ondansetron Hcl 4 Mg/2 Ml Vial IVPUSH Q8H PRN Nausea and Vomiting Pantoprazole Sodium 40 mg 02/15/21 16:30 Pantoprazole Sodium 40 Mg/10 Ml Vial IVPUSH BID@0630,1630 FLAVIO Sodium Chloride 3 ml 02/15/21 08:00 02/15/21 07:39 0.9 % Sodium Chloride Flush 3 Ml Syringe IVFLUSH 3 ml QSHIFT FLAVIO Administration Thiamine HCl 100 mg 02/15/21 09:00 02/15/21 08:41 Thiamine Hcl 100 Mg Tablet PO 100 mg DAILY FLAVIO Administration <Shelly Shelley NP - Last Filed: 02/15/21 16:02> Labs CBC & Chem 7: : 02/15/21 10:28 02/15/21 02:47 <Shelly Shelley NP - Last Filed: 02/15/21 16:02> Assessment and Plan (1) Acute GI bleeding: Status: Acute <Shelly Shelley NP - Last Filed: 02/15/21 16:02> Assessment and Plan: 75-year-old male with past medical history of hypertension diabetes who presents the hospital GI bleed. # Acute GI bleed. Seen and evaluated by GI - most likely diverticular bleed - CT of the abdomen/pelvic showed significant amount of diverticulosis throughout the colon with no evidence of acute GI bleed - occult stool blood positive - hemodynamically stable - denies ever undergoing colonoscopy in the past Plan: - will start him on Protonix 40 IV b.i.d. - stop aspirin - Clears for now NPO after midnight - Colonoscopy tomorrow, colon prep tonight #Chest pain - unlikely to be cardiac - trop neg x2, no ekg changes - follow for any recurrence # Dysuria - UA neg for any infection # Diabetes - SSI - clears # Alcohol abuse - Drinks 3-4 drinks daily - last drink >3 days - No hx of withdrawal and no current evidence of withdrawal - alcohol level neg - Will place on CIWA, if scores high, start phenobarb - thiamine and folic acid supplement # HTN - Elevated - resume home med Attending: Dr. Palacios <Shelly Shelley NP - Last Filed: 02/15/21 16:02> Attending Attestation: Patient seen and examined independently and I was present during gonzalez portion of E/M service. Agree with Piper Shelley NP's history, physical, assessment, and plan. Seen this AM. Likely diverticular bleed. No prior colonoscopy. ALso drinks 3-4 drinks daily. Monitor with CIWA. GI consult: plan for scope tomorrow. <Stas Palacios MD - Last Filed: 02/15/21 16:35>
--- NOTE | 2021-02-15 15:04 | PM.EVENT ---
Event Note Date of Service: 02/15/21 Event Note: GI consult dictated Picture is c/w diverticular bleeding. Appears stable with no active bleeding at this time. He denies having undergone previous colonoscopy. He is agreeable to having this done as and inpatient, and we will plan this for tomorrow.
--- NOTE | 2021-02-15 15:32 | MHC.SHP ---
Pre-Procedural Eval Section A The patient is an INPATIENT: Yes Changes since office visit: No Cold of Flu in the past 2 weeks, No New Medical Problems, No Changes in Medication and No Patient answered all questions The History & Physical has been completed within 30 days and I have reviewed it.: Yes Section B Chief Complaint: GI Bleed Allergies: Allergies Allergy/AdvReac Type Severity Reaction Status Date / Time No Known Allergies Allergy Mild NOT Unverified 07/09/20 15:10 APPLICABLE Plan I have reviewed the history and physical and performed a pertinent physical examination on my patient. No changes have occurred unless specified.
[2021-02-15] MEDS: PEG 3350/Na Sulf,Bicarb,Cl/KCL 4,000 ML SOLN.RECON 240 ML PO (16:13)
[2021-02-15 16:35] LABS: Glucose, Whole Blood 147 mg/dL (60-115)
[2021-02-15 16:38] LABS: Hematocrit 40.1 % (42-52); Hemoglobin 12.9 g/dl (14.0-18.0)
[2021-02-15] MEDS: Pantoprazole Sodium 40 MG/10 ML VIAL IVPUSH (17:45)
[2021-02-15 20:30] LABS: Glucose, Whole Blood 125 mg/dL (60-115)
--- NOTE | 2021-02-15 21:05 | PC.NURSE ---
P- patient having bloody stools ,drinking prep for colonoscopy I-Dr. Manriquez notified E-stat CBC pending
[2021-02-15 21:22] LABS: MANUAL DIFF FLAG NO
[2021-02-15 21:23] LABS: Basophils Absolute Auto 0.1 X10*3/uL (0.0-0.2); Basophils Percent Auto 0.6 % (0-2); Eosinophils Absolute Auto 0.3 X10*3/uL (0.0-0.4); Hematocrit 39.8 % (42-52); Hemoglobin 12.8 g/dl (14.0-18.0); Imm Gran Abs Auto 0.02 X10*3/uL (0.00-0.03); Imm Gran Pct Auto 0.3 % (0.0-0.4); Lymphocytes Absolute Auto 1.9 X10*3/uL (1.2-4.9); Lymphocytes Percent Auto 23.7 % (20-40); Mean Corpuscular HGB Conc 32.2 g/dl (31.0-36.0); Mean Corpuscular Hemoglobin 27.3 pg (27.0-33.0); Mean Corpuscular Volume 84.9 fL (80-98); Mean Platelet Volume 9.8 fL (9.4-12.4); Monocytes Absolute Auto 0.6 X10*3/uL (0.1-1.2); Monocytes Percent Auto 7.9 % (2-11); Neutrophils Percent Auto 63.5 % (45-73); Platelet Count 184 X10*3/uL (160-400); Red Blood Count 4.69 X10*6/uL (4.60-5.80); White Blood Count 7.9 X10*3/uL (4.8-10.8)
--- NOTE | 2021-02-15 21:38 | CONS_ITS ---
DATE OF SERVICE: 02/15/2021 REFERRING PHYSICIAN: Jenna Ellison, Consultation initiated by Dr. Pang at 0400 this AM. REASON FOR CONSULTATION: GI bleeding. HISTORY OF PRESENT ILLNESS: The patient is a pleasant 75-year-old man, admitted to the hospital with rectal bleeding. 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 He states he was well until the day before admission when he developed the urge to move his bowels and had painless red bloody stools with clots. This happened approximately 4 times at home and 3 times since he was admitted. 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 He has no complaints of abdominal pain. He does recall having GI bleeding approximately 15 years ago in [place] and apparently had an ulcer at that time and required transfusion of 3 units of packed red blood cells. He reports undergoing an endoscopy, but has never had a colonoscopy. He denies epigastric pain and does not take acid suppressive therapy. He was evaluated in the emergency department with laboratory studies showing a hematocrit of 41.2, which was down from 45.5 on January 30. Repeat hematocrit later this morning was stable at 40.1. Further evaluation included CT scanning of the abdomen and pelvis, which is reviewed. This is interpreted as showing no evidence of active GI bleeding. Diverticulosis was noted diffusely. He does take aspirin 81 mg on a daily basis for a history of CAD and PAD. He specifically denies use of other anticoagulants, blood thinners or NSAIDS. PAST MEDICAL HISTORY: 1. Peptic ulcer disease, as above. 2. Diabetes. 3. Hypertension. 4. Gout. 5. Hyperlipidemia 6. CAD, s/p cardiac cath PCI with JALEESA to LAD 03/10, refused CABG in past. 7. Carotid artery disease 8. AAA s/p EVAR 06/10 9. R inguinal herniorrhaphy 10. Spinal surgery 11. Asthma 11. Osteoarthritis CURRENT MEDICATIONS: His current medication list is reviewed in the chart. ALLERGIES: THERE ARE NONE REPORTED. FAMILY HISTORY: This is negative for GI malignancy. SOCIAL HISTORY: He states he drinks alcohol 3 to 4 drinks several times per week. He does smoke. REVIEW OF SYSTEMS: SKIN: No pruritus. HEENT: Negative. CARDIOPULMONARY: He denies shortness of breath or chest pain. GASTROINTESTINAL: As above. GENITOURINARY: Negative. NEUROPSYCHIATRIC: Negative. PHYSICAL EXAMINATION: GENERAL: Shows a pleasant male, lying comfortably in bed. VITAL SIGNS: Reviewed in electronic medical record and are stable. SKIN: Anicteric. HEENT: Shows no scleral icterus. NECK: Without lymphadenopathy or thyromegaly. LUNGS: Clear. HEART: Shows regular rate and rhythm. S1, S2. No murmur. ABDOMEN: Soft without focal masses or tenderness. Bowel sounds are present. No organomegaly is noted. EXTREMITIES: Without edema. LABORATORY DATA: Reviewed. IMPRESSION: Gastrointestinal bleeding. This appears consistent with a lower GI bleed from diverticular disease by history. I discussed this with the patient. He does not appear to have active bleeding at this time. I would recommend he undergo colonoscopy for further evaluation. We discussed risks and benefits of the procedure today. He understands these and agrees to proceed. If he has no lower GI source for bleeding or if there is evidence of blood coming from the upper GI tract on colonoscopy, I would recommend endoscopy be performed at the same time. He has been started on a ppi empirically. Thanks for asking me to see him. I will follow him in the hospital with you. MD AILYN Acosta/KISHOR / [phone] [email or web address]
[2021-02-16] VITALS (10 sets, daily range): BP systolic 99–163; BP diastolic 39–90; PULSE 79–95; RESP 12–17; TEMP 36.1–37.4; O2SAT 95–99
[2021-02-16] MEDS: 0.9 % Sodium Chloride Flush 3 ML SYRINGE IVFLUSH ×3 (00:09→18:08)
[2021-02-16 06:29] LABS: MANUAL DIFF FLAG NO
[2021-02-16] MEDS: Pantoprazole Sodium 40 MG/10 ML VIAL IVPUSH ×2 (06:35→18:08)
[2021-02-16 06:49] LABS: Basophils Absolute Auto 0.1 X10*3/uL (0.0-0.2); Basophils Percent Auto 1.1 % (0-2); Eosinophils Absolute Auto 0.3 X10*3/uL (0.0-0.4); Eosinophils Percent Auto 4.4 % (0-4); Hematocrit 37.2 % (42-52); Hemoglobin 11.9 g/dl (14.0-18.0); Imm Gran Abs Auto 0.04 X10*3/uL (0.00-0.03); Imm Gran Pct Auto 0.6 % (0.0-0.4); Lymphocytes Absolute Auto 1.5 X10*3/uL (1.2-4.9); Lymphocytes Percent Auto 24.7 % (20-40); Mean Corpuscular Hemoglobin 26.9 pg (27.0-33.0); Mean Platelet Volume 10.4 fL (9.4-12.4); Monocytes Absolute Auto 0.6 X10*3/uL (0.1-1.2); Monocytes Percent Auto 9.7 % (2-11); Neutrophils Absolute Auto 3.7 X10*3/uL (2.0-8.3); Neutrophils Percent Auto 59.5 % (45-73); Platelet Count 187 X10*3/uL (160-400); Red Blood Count 4.43 X10*6/uL (4.60-5.80); Red Cell Distribution Width 14.9 % (11.0-16.0); White Blood Count 6.2 X10*3/uL (4.8-10.8)
[2021-02-16 07:21] LABS: Anion Gap 13 (12-20); Blood Urea Nitrogen 10 mg/dL (9-16); Calcium 8.5 mg/dL (8.4-10.2); Carbon Dioxide 26 mmol/L (22-29); Chloride 105 mmol/L (96-108); Creatinine Clr Calc Pharmacy 70.6; Estimated Glomerular Filt Rate > 60; Glucose Random 122 mg/dL (60-115); Sodium 140 mmol/L (135-145)
[2021-02-16 07:37] LABS: Glucose, Whole Blood 120 mg/dL (60-115)
[2021-02-16] MEDS: Losartan Potassium 50 MG TABLET PO (08:00)
--- NOTE | 2021-02-16 10:24 | MHC.CM.PN ---
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 he also has a rn wound care out in the community from [facility] edwina salamanca. 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
--- NOTE | 2021-02-16 11:22 | P.PNIM_ITS ---
Subjective Subjective Date of Service: 02/16/21 <Shelly Shelley NP - Last Filed: 02/16/21 15:33> 02/16/21 <Stas Palacios MD - Last Filed: 02/16/21 16:06> Interval History: Follow up GI bleed. Still with bloody stools. No abdominal pain <Shelly Shelley NP - Last Filed: 02/16/21 15:33> Physical Exam Vital Signs: Vital Signs: Last Vital Signs Temp 97.2 F 02/16/21 11:15 Pulse 95 02/16/21 11:15 Resp 16 02/16/21 11:15 BP 163/90 H 02/16/21 11:15 Pulse Ox 96 02/16/21 11:15 Body Mass Index 23.6 <Shelly Shelley NP - Last Filed: 02/16/21 15:33> Appearing in no acute distress lung sounds are clear to auscultation heart regular rate rhythm, clear S1, S2 positive bowel sounds, abdomen is soft, nontender, red stools neuro patient is alert x3, no focal deficits <Shelly Shelley NP - Last Filed: 02/16/21 15:33> Objective Data Current Medications Generic Name Dose Route Start Last Admin Trade Name Freq PRN Reason Stop Dose Admin Acetaminophen 650 mg 02/15/21 04:48 Acetaminophen 325 Mg Tablet PO Q6H PRN Pain, Mild (Pain Scale 1-3) Albuterol Sulfate 2.5 mg 02/15/21 04:48 Albuterol Sulfate (0.083%) 2.5 Mg/3 Ml Vial.Neb INHALE QID PRN Wheezing Allopurinol 300 mg 02/15/21 09:00 02/16/21 08:01 Allopurinol 300 Mg Tablet PO Not Given DAILY FLAVIO Docusate Sodium 100 mg 02/15/21 04:48 Docusate Sodium 100 Mg Capsule PO DAILY PRN Constipation Folic Acid 1 mg 02/15/21 09:00 02/16/21 08:01 Folic Acid 1 Mg Tablet PO Not Given DAILY [facility] Insulin Human Lispro 0 unit 02/15/21 07:30 02/16/21 08:01 Insulin Lispro 100 Unit/Ml 3 Ml Vial SUBCUT Not Given QIDACHS [facility] Protocol Losartan Potassium 50 mg 02/15/21 09:00 02/16/21 08:00 Losartan Potassium 50 Mg Tablet PO 50 mg DAILY FLAVIO Administration Protocol Ondansetron HCl 4 mg 02/15/21 04:48 Ondansetron Hcl 4 Mg/2 Ml Vial IVPUSH Q8H PRN Nausea and Vomiting Pantoprazole Sodium 40 mg 02/15/21 16:30 02/16/21 06:35 Pantoprazole Sodium 40 Mg/10 Ml Vial IVPUSH 40 mg BID@0630,1630 FLAVIO Administration Sodium Chloride 3 ml 02/15/21 08:00 02/16/21 08:01 0.9 % Sodium Chloride Flush 3 Ml Syringe IVFLUSH 3 ml QSHIFT FLAVIO Administration Thiamine HCl 100 mg 02/15/21 09:00 02/16/21 08:02 Thiamine Hcl 100 Mg Tablet PO Not Given DAILY FLAVIO <Shelly Shelley NP - Last Filed: 02/16/21 15:33> Labs CBC & Chem 7: : 02/16/21 06:15 02/16/21 06:15 <Shelly Shelley NP - Last Filed: 02/16/21 15:33> Assessment and Plan (1) Acute GI bleeding: Status: Acute <Shelly Shelley NP - Last Filed: 02/16/21 15:33> Assessment and Plan: 75-year-old male with past medical history of hypertension diabetes who presents the hospital GI bleed. # Acute GI bleed. Seen and evaluated by GI. Patient may at one point been pn both aspirin and plavix but patient denies. - EGD showed gastritis - colonoscopy showed multiple polyps, one removed. No active bleeding noted on scan. - occult stool blood positive - hemodynamically stable, no severe drop in HH - Protonix 40 IV b.i.d. - stop aspirin #Chest pain - unlikely to be cardiac - trop neg x2, no ekg changes - follow for any recurrence # Dysuria - UA neg for any infection # Diabetes - SSI - clears # Alcohol abuse - Drinks 3-4 drinks daily - last drink >3 days - No hx of withdrawal and no current evidence of withdrawal - alcohol level neg - Will place on CIWA, if scores high, start phenobarb - thiamine and folic acid supplement # HTN - Elevated - resume home med Attending: Dr. Palacios <Shelly Shelley NP - Last Filed: 02/16/21 15:33> Seen and examined this AM reported +rectal bleeding at that time. Underwent upper and lower endscopic evaluations. No source of active bleeding identified at that time. Bleeding Scan ordered by GI -- pending results. <Stas Palacios MD - Last Filed: 02/16/21 16:06>
[2021-02-16 11:36] LABS: Glucose, Whole Blood 121 mg/dL (60-115)
--- NOTE | 2021-02-16 12:05 | P.CONAN_ITS ---
HPI - Anesthesia Eval Consult details Narrative: 75 yo male patient here for EGD, colonoscopy PMF Active Problems Active Problems: All Active Problems (Updated 02/15/21 @ 04:30 by Christine Pang MD) Acute GI bleeding (Acute) Chest pain (Acute) Past Medical History Medical History (Updated 02/16/21 @ 12:18 by Stacia Chapa) Asthma CAD (coronary artery disease) Diabetes Gout Hypertension Family History Family history of problems with anesthesia: No Surgical History Surgical History (Updated 02/16/21 @ 12:13 by Stacia Chapa) Hernia History of cardiac catheterization History of heart artery stent History of Problems with Anesthesia: No Social History Social History Household Members: None Housing: Apartment Do you presently have visiting nurse or other home services: Yes Alcohol intake: current Alcohol intake frequency: 3 or more drinks per day Smoking Status: Never smoker Second Hand Smoke Exposure: No Use of substances other than those prescribed or required for medical reasons: No Currently Displaying Signs/Symptoms of Drug Intoxication Withdrawal: No Have you been hit, kicked, punched, or otherwise hurt by someone within the past year? If so, by whom?: No Do you feel safe in your current relationship?: No Is there a partner from a previous relationship who is making you feel unsafe now?: No Advance Directives: No Advance Directives Information Provided: No Do you have thoughts of harming others: None Do you have a plan to hurt others: No Plan Recently lost weight without trying: Yes service: No Current occupational status: retired Meds Allergies Allergy/AdvReac Type Severity Reaction Status Date / Time No Known Allergies Allergy Mild NOT Verified 02/16/21 12:10 APPLICABLE Active Medications: Current Medications Generic Name Dose Route Start Last Admin Trade Name Freq PRN Reason Stop Dose Admin Acetaminophen 650 mg 02/15/21 04:48 Acetaminophen 325 Mg Tablet PO Q6H PRN Pain, Mild (Pain Scale 1-3) Albuterol Sulfate 2.5 mg 02/15/21 04:48 Albuterol Sulfate (0.083%) 2.5 Mg/3 Ml Vial.Neb INHALE QID PRN Wheezing Allopurinol 300 mg 02/15/21 09:00 02/16/21 08:01 Allopurinol 300 Mg Tablet PO Not Given DAILY FLAVIO Docusate Sodium 100 mg 02/15/21 04:48 Docusate Sodium 100 Mg Capsule PO DAILY PRN Constipation Folic Acid 1 mg 02/15/21 09:00 02/16/21 08:01 Folic Acid 1 Mg Tablet PO Not Given DAILY [facility] Insulin Human Lispro 0 unit 02/15/21 07:30 02/16/21 11:59 Insulin Lispro 100 Unit/Ml 3 Ml Vial SUBCUT Not Given QIDACHS [facility] Protocol Losartan Potassium 50 mg 02/15/21 09:00 02/16/21 08:00 Losartan Potassium 50 Mg Tablet PO 50 mg DAILY [facility] Administration Protocol Ondansetron HCl 4 mg 02/15/21 04:48 Ondansetron Hcl 4 Mg/2 Ml Vial IVPUSH Q8H PRN Nausea and Vomiting Pantoprazole Sodium 40 mg 02/15/21 16:30 02/16/21 06:35 Pantoprazole Sodium 40 Mg/10 Ml Vial IVPUSH 40 mg BID@0630,1630 [facility] Administration Sodium Chloride 3 ml 02/15/21 08:00 02/16/21 08:01 0.9 % Sodium Chloride Flush 3 Ml Syringe IVFLUSH 3 ml QSHIFT [facility] Administration Thiamine HCl 100 mg 02/15/21 09:00 02/16/21 08:02 Thiamine Hcl 100 Mg Tablet PO Not Given DAILY [facility] Home Medications Medication Instructions Recorded Confirmed Last Taken Type albuterol sulfate 1 vial INHALATION QID PRN 02/15/21 02/15/21 1 Day Ago History ~02/14/21 allopurinol 1 tab PO DAILY 02/15/21 02/15/21 1 Day Ago History ~02/14/21 aspirin 1 tab PO DAILY 02/15/21 02/15/21 1 Day Ago History ~02/14/21 cholecalciferol (vitamin D3) 1 cap PO DAILY 02/15/21 02/15/21 1 Day Ago History ~02/14/21 loratadine 1 tab PO DAILY PRN 02/15/21 02/15/21 1 Day Ago History ~02/14/21 losartan 1 tab PO DAILY 02/15/21 02/15/21 1 Day Ago History ~02/14/21 Exam Exam Date and Time: February 16, 2021 1205 Height,Weight and Vital Signs: Height 5 ft 9 in Weight 72.575 kg Last Vital Signs Temp 97.2 F 02/16/21 11:15 Pulse 95 02/16/21 11:15 Resp 16 02/16/21 11:15 BP 163/90 H 02/16/21 11:15 Pulse Ox 96 02/16/21 11:15 Pertinent Lab Results Pertinent Lab Results: Blood glucose 121 Airway Mallampati Class: II TM Dist: >3cm Neck ROM: Full Denture: Upper and Lower Heart: RRR Lungs: CTAB Assessment and Plan Assessment Anesthesia Assessment: Anesthesia Plan Discussed and Chart Reviewed Final Anesthetic Review NPO: Yes ASA Class: III Final Preanesthetic Review: No Changes in Pt Med Stat, Meds/Allgs Chart Reviewed, Consent Obtained/Reviewed and Anes Risks/Benef Reviewed Patient Risk: Intermediate Procedure Risk: Low Assessment/Block/Sedation in SS: Assess/Block/Sedation-SS Anesthetic Plan Anesthetic Plan: MAC: Disposition: Inp. Admit - Standard Bed
[2021-02-16] MEDS: Lactated Ringers 1,000 ML 100 ML IVCONT (12:26)
--- NOTE | 2021-02-16 12:33 | PC.NURSE ---
no rectal bleeding noted in bed.
--- NOTE | 2021-02-16 13:21 | PM.OP ---
Brief Operative Note Date of Service: 02/16/21 Pre-op diagnosis: GI Bleed Post-op diagnosis: same Procedure: EGD/Colon Surgeon: New Crabtree Anesthesia: MAC Estimated blood loss (mL): 5 Pathology: other (polyp 50 cm) Condition: stable Disposition: PACU
--- NOTE | 2021-02-16 13:22 | PM.EVENT ---
Event Note Date of Service: 02/16/21 Event Note: EGD/Colon EGD shows gastritis without bleeding colonoscopy shows diverticulosis, blood and clots throughout colon. source not identified. small polyp at 50 cm biopsied. several rectal polyps not biopsied. Bleeding scan to be obtained, if source identified, proceed with interventional radiology evaluation for angiography.
--- NOTE | 2021-02-16 14:55 | OP_ITS ---
SURGEON: New Crabtree MD INDICATIONS: GI bleeding. PREOPERATIVE DIAGNOSIS: POSTOPERATIVE DIAGNOSIS: PROCEDURE PERFORMED: 1. Upper endoscopy. 2. Colonoscopy to the terminal ileum with biopsy. ESTIMATED BLOOD LOSS: COMPLICATIONS: ANESTHESIA: ASSISTANTS: SPECIMENS: MEDICATIONS: Monitored anesthesia care. DESCRIPTION OF PROCEDURE: History and physical performed. The risks and benefits of the procedure were explained to the patient. Informed consent was obtained. The patient was placed in left lateral decubitus position. The Olympus video gastroscope was introduced into the esophagus, stomach, and duodenum. Examination was performed and the scope was removed. He was repositioned for colonoscopy. A digital rectal exam was performed and was found to be normal. The Olympus pediatric video colonoscope was introduced into the rectum and advanced to the cecum without difficulty. The cecum was identified by transillumination, palpation, and identification of ileocecal valve. Examination was performed and the scope was removed. He tolerated both procedures well and was returned to recovery area in stable condition. FINDINGS: UPPER ENDOSCOPY: Esophagus: The esophagus was normal. There was no esophagitis. Stomach: The stomach showed mild gastritis involving the fundus and body. There was no bleeding. Duodenum: The bulb and second portion were normal. COLONOSCOPY: The terminal ileum was examined and showed a small area of ulceration measuring approximately 3 or 4 mm with a polypoid component to it. There was no active bleeding. The terminal ileum did not show any blood at all. The colon showed blood and clots throughout the entire colon with diverticulosis to a moderate degree involving the sigmoid and the cecum. This was washed and irrigated, but no definite site for GI bleeding was identified. Retroflexed examination showed some small internal hemorrhoids. There was 1 polyp at 50 cm measuring less than 5 mm, which was removed with biopsy forceps. Several other rectal polyps measuring approximately 6 to 7 mm were not removed. IMPRESSION: 1. Gastritis. 2. Diverticulosis. 3. Small ulcer in the terminal ileum. 4. Gastrointestinal bleeding site not identified, consistent with diverticular bleeding. RECOMMENDATIONS: 1. Follow up the biopsy results. 2. Obtain nuclear medicine bleeding scan. If this is positive, I would recommend Interventional Radiology consultation for angiography. If this is negative, advance his diet and monitor his hematocrit. MD AILYN Acosta/MARYL / [id number] KIM
[2021-02-16 16:23] LABS: Glucose, Whole Blood 121 mg/dL (60-115)
[2021-02-16 20:23] LABS: Glucose, Whole Blood 165 mg/dL (60-115)
[2021-02-17] MEDS: Lactated Ringers 1,000 ML 100 ML IVCONT ×2 (00:27→08:34)
[2021-02-17] MEDS: Pantoprazole Sodium 40 MG/10 ML VIAL IVPUSH (06:07)
[2021-02-17 06:11] LABS: MANUAL DIFF FLAG NO
[2021-02-17 06:16] LABS: Basophils Absolute Auto 0.1 X10*3/uL (0.0-0.2); Basophils Percent Auto 0.9 % (0-2); Eosinophils Absolute Auto 0.3 X10*3/uL (0.0-0.4); Hemoglobin 12.2 g/dl (14.0-18.0); Imm Gran Abs Auto 0.04 X10*3/uL (0.00-0.03); Imm Gran Pct Auto 0.5 % (0.0-0.4); Lymphocytes Absolute Auto 2.6 X10*3/uL (1.2-4.9); Mean Corpuscular HGB Conc 31.3 g/dl (31.0-36.0); Mean Corpuscular Volume 86.3 fL (80-98); Mean Platelet Volume 10.7 fL (9.4-12.4); Monocytes Absolute Auto 0.7 X10*3/uL (0.1-1.2); Monocytes Percent Auto 8.4 % (2-11); Neutrophils Absolute Auto 4.3 X10*3/uL (2.0-8.3); Neutrophils Percent Auto 53.2 % (45-73); Platelet Count 237 X10*3/uL (160-400); Red Blood Count 4.52 X10*6/uL (4.60-5.80); Red Cell Distribution Width 15.1 % (11.0-16.0)
[2021-02-17 07:20] LABS: Glucose, Whole Blood 122 mg/dL (60-115)
[2021-02-17 07:34] VITALS: BP 155/83; PULSE 96; RESP 18; TEMP 36.6; O2SAT 97
--- NOTE | 2021-02-17 08:30 | MHC.CM.PN ---
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 S/P NUCLEAR BLODD SCAN NEGATOVE . PLANS ARE TO ADVANCE DIET MONITOR STOOLS AND HGB/HCT LABS. DISCHARGE PLAN HOME NO SERVICES PCP DR JULIO BLOUNT CASE MANAGEMENT OFFICE MADE APPOINTMENT FOR YOU PATIENT TO BE REASSIGHNED A NEW PCP AFTER THIS APPOINTMENT TRANSPORTATION FAMILY
[2021-02-17] MEDS: allopurinoL 300 MG TABLET PO (08:34)
[2021-02-17] MEDS: Thiamine HCL 100 MG TABLET PO (08:34)
[2021-02-17] MEDS: Folic Acid 1 MG TABLET PO (08:34)
[2021-02-17] MEDS: Losartan Potassium 50 MG TABLET PO (08:34)
[2021-02-17] MEDS: ondansetron HCL 4 MG/2 ML VIAL IVPUSH (10:55)
--- NOTE | 2021-02-17 11:36 | P.DS_ITS ---
DS: Providers Provider Date of Service: 02/17/21 Date of admission: 02/15/21 04:39 Primary care physician: Unknown Physician Consults: 02/15/21 04:51 Consult to Gastroenterology Routine Consulting Provider: New Crabtree Reason for consultation: GI bleed Has provider been notified: Yes DS: Diagnosis Discharge Diagnosis (1) Acute GI bleeding: Status: Acute DS: Medications Discharge Medications Home Medications: Home Medications Medication Instructions Recorded Confirmed albuterol sulfate 1 vial INHALATION QID PRN 02/15/21 02/15/21 allopurinol 1 tab PO DAILY 02/15/21 02/15/21 aspirin 1 tab PO DAILY 02/15/21 02/15/21 cholecalciferol (vitamin D3) 1 cap PO DAILY 02/15/21 02/15/21 loratadine 1 tab PO DAILY PRN 02/15/21 02/15/21 losartan 1 tab PO DAILY 02/15/21 02/15/21 DS: Summary Hospital Course Hospital Course: HP as per admitting provider This is a 75-year-old male with past medical history abuse who present to hospital with complaints of lower GI bleed. at bedside helped with history as patient is [place]-speaking only. Patient reports that he went to the bathroom around 10:00 p.m. and had 1 large episode of bloody bowel movement, he had 2 more episodes following that while at home, and 1 more smaller episode in the ED. denies abdominal pain, denies nausea or vomiting, no diarrhea constipation. He report he had 1 similar episode 10 years ago and at that time he was told that he had ulcers in the stomach. He denies taking any Aleve Motrin no ibuprofen or any other NSAID. He is of low complaining of midsternal chest tightness that is reproducible nonradiating, 5/10, that has now resolved. He has no shortness of breath, no headache or change in vision. He is complaining of decreased urine output and dysuria. Denies any fever or chills. No lower extremity edema. No numbness or tingling On arrival to the ED patient hemodynamically stable Lab significant for hemoglobin of 13.4 which has dropped from 14.6 on 01/30/21, hematocrit of 41.2, alk-phos of 119, CMP otherwise unremarkable. Positive stool occult blood, negative COVID Abd CT shows diverticulosis and nothing to suggest acute GI bleed . Gastrointestinal bleed. Patient reported sudden onset bloody bowel movement at home. initially there was a question of diverticular bleed. Abdominal CT showed significant diverticulosis. Patient was seen and evaluated by Gastroenterology. EGD showed esophagitis, colonoscopy showed multiple polyps with 1 removed. He had a bleeding scan which did not show any active bleeding. Hemoglobin and hematocrit remained stable during hospitalization and patient did not require any blood transfusion.He was started on IV PPI and will continue with oral prior list sec. His aspirin was stopped and should continue to be on hold until he follows with the nuclear fuels research engineer. Chest pain. Atypical, negative troponins, no acute EKG changes. No further cardiac workup warranted. Attending: Dr. Palacios Time Spent with Patient Time attestation: Total time spent providing and/or coordinating discharge services: Discharge coordination time: Greater than 30 minutes Physical Exam Vital Signs: Vital Signs: Last Vital Signs Temp 97.9 F 02/17/21 07:34 Pulse 96 02/17/21 07:34 Resp 18 02/17/21 07:34 BP 155/83 H 02/17/21 07:34 Pulse Ox 97 02/17/21 07:34 Body Mass Index 23.6 Appearing in no acute distress head is normocephalic atraumatic eyes pupils are PERRLA sclera is anicteric mouth throat mucous membranes are intact and moist neck is supple no lymphadenopathy, no JVD noted lung sounds are clear to auscultation heart regular rate rhythm, clear S1, S2 positive bowel sounds, abdomen is soft, nontender neuro patient is alert x3, no focal deficits DS: Data Data Completed and Pending Pending studies at discharge: Pending at discharge 02/16/21 13:01 Surgical [PTH] Routine Labs on day of discharge: Laboratory Results - last 24 hr 02/16/21 02/16/21 02/16/21 11:13 16:19 20:19 WBC RBC Hgb Hct MCV MCH MCHC RDW Plt Count MPV Immature Gran % (Auto) Neut % (Auto) Lymph % (Auto) Dare % (Auto) Eos % (Auto) Baso % (Auto) Lymph # (Auto) Dare # (Auto) Eos # (Auto) Baso # (Auto) Abs Immat Gran (auto) Absolute Neuts (auto) Absolute Nucleated RBC Nucleated RBC % (auto) POC Glucose 121 H 121 H 165 H 02/17/21 02/17/21 05:46 07:11 WBC 8.0 RBC 4.52 L Hgb 12.2 L Hct 39.0 L MCV 86.3 MCH 27.0 MCHC 31.3 RDW 15.1 Plt Count 237 D MPV 10.7 Immature Gran % (Auto) 0.5 H Neut % (Auto) 53.2 Lymph % (Auto) 33.0 Dare % (Auto) 8.4 Eos % (Auto) 4.0 Baso % (Auto) 0.9 Lymph # (Auto) 2.6 Dare # (Auto) 0.7 Eos # (Auto) 0.3 Baso # (Auto) 0.1 Abs Immat Gran (auto) 0.04 H Absolute Neuts (auto) 4.3 Absolute Nucleated RBC 0.000 Nucleated RBC % (auto) 0.0 POC Glucose 122 H Discharge Plan Discharge Anticipated Discharge Date/Time: 02/17/21 11:32 Patient Disposition: Home, Self-Care Discharge Diagnosis: Gastrointestinal bleed Referrals: New Crabtree [Physician] - 1 Week Fritz Rocha MD [Physician] - 02/23/21 2:30 pm (YOUR NEW PCP IS DR. VALLECILLO HOWEVER DR. BRANTLEY WILL BE ABLE TO MAKE TELEHEALTH APPT. ON 02/23/21 @ 2:30pm.) Physician,Unknown [Primary Care Provider] - 1 Week Discharge Medications: New omeprazole magnesium [Prilosec OTC] 20 mg tablet,delayed release (DR/EC) 20 mg PO BID Qty: 60 RF: 0 Continued losartan 50 mg tablet 1 tab PO DAILY RF: 0 albuterol sulfate 2.5 mg /3 mL (0.083 %) solution for nebulization 1 vial inhalation QID PRN (Reason: Wheezing) RF: 0 allopurinol 300 mg tablet 1 tab PO DAILY RF: 0 loratadine 10 mg tablet 1 tab PO DAILY PRN (Reason: Allergic Symptoms) RF: 0 cholecalciferol (vitamin D3) 50 mcg (2,000 unit) capsule 1 cap PO DAILY RF: 0 Discontinued aspirin 81 mg tablet,delayed release (DR/EC) 1 tab PO DAILY RF: 0 Discharge Orders: Discharge Order (Routine); Ordered 02/17/21 Ordered By: Shelly Shelley Diet: advance to usual diet Activity on Discharge: As tolerated Stand Alone Forms: Patient Portal Discharge page Care Plan Goals: Resolution of gastrointestinal bleeding Health Concerns: Gastrointestinal bleeding Plan of Treatment: Follow up with primary care provider as outpatient as needed Take new medications as prescribed. Stop aspirin for now and follow up with nuclear fuels research engineer for when to restart. Return to the emergency department if there is any noted rectal bleeding or vomiting blood. Follow-up with Dr. Crabtree, nuclear fuels research engineer [phone] Assessment: See discharge summary
[2021-02-17 11:40] LABS: Glucose, Whole Blood 160 mg/dL (60-115)
--- NOTE | 2021-02-17 12:40 | HO.POSTANES ---
Post Anesthesia Evaluation Post Anesthesia Evaluation Vital Signs: Vital Signs Temp Pulse Resp BP Pulse Ox 02/17/21 07:34 97.9 F 96 18 155/83 H 97 Anesthesia: Monitored Mental Status: Awake Pain Control: Satisfactory Nausea/Vomiting: None Hydration: Adequate Anesthesia-Related Issues: No Anes. Related Issues
== END 2021-02-17 15:30 | disposition home or self-care (01) | DRG 379 ==
LOC: HO.ED 04:30 → HO.EDOVER 04:45 → HO.S3 09:16
PROVIDERS: Hospitalist; Internal Medicine Gastroenterology; Nurse Practitioner Acute Care; Admitting Provider Internal Medicine; Emergency Provider Student in an Organized Health Care Education/Training Program; PCP Internal Medicine; Visit Provider Family Medicine
PROC: 0DJ08ZZ Inspection of Upper Intestinal Tract, Via Natural or Artificial Opening Endoscopic (ICD-10-PCS; principal; 2021-02-16 12:50)
DX: K57.31 Diverticulosis of large intestine without perforation or abscess with bleeding (principal); K62.1 Rectal polyp; K29.71 Gastritis, unspecified, with bleeding; K64.8 Other hemorrhoids; K63.5 Polyp of colon; K20.90 Esophagitis, unspecified without bleeding; I25.10 Atherosclerotic heart disease of native coronary artery without angina pectoris; M10.9 Gout, unspecified; F10.10 Alcohol abuse, uncomplicated; E11.9 Type 2 diabetes mellitus without complications; E78.5 Hyperlipidemia, unspecified; Z98.61 Coronary angioplasty status; Z20.822 Contact with and (suspected) exposure to COVID-19; Z79.899 Other long term (current) drug therapy
CPT/HCPCS: 36415; 74178; 78278; 80048; 80053; 80320; 81003; 82272; 82947; 83690; 84484; 85014; 85018; 85025; 85610; 86850; 86900; 86901; 87635; 88305; 93005; 96374; 99285; A9560; J2370; J2405; Q9967

== ENCOUNTER → 2021-03-15 14:45 | Outpatient (BNVA) | payer MEDICARE, SELFPAY | PROVIDERS: Referring Provider Internal Medicine; Visit Provider Internal Medicine | DX: I25.10 Atherosclerotic heart disease of native coronary artery without angina pectoris (principal); I71.4 Abdominal aortic aneurysm, without rupture; I10 Essential (primary) hypertension; E11.8 Type 2 diabetes mellitus with unspecified complications; K92.2 Gastrointestinal hemorrhage, unspecified | CPT/HCPCS: 99212 ==

== ENCOUNTER 2021-12-09 13:04 | Outpatient (REF) | payer MEDICARE, SELFPAY ==
--- NOTE | ~2021-12-09 | MR_ITS ---
EXAMINATION: MR ANGIOGRAPHY ABDOMEN WITHOUT CONTRAST CLINICAL INFORMATION: Infrarenal abdominal aortic aneurysm with stent placement, recent GI bleeding COMPARISON: CT abdomen pelvis on 02/15/2021 TECHNIQUE: MR angiography of the abdomen and pelvis was attempted. Coronal T2, axial T2, and axial T1 sequences were performed, however there is significant metallic artifact from the abdominal aortic stent which limits evaluation. Contrast was not administered. FINDINGS: Nondiagnostic exam. MR/MR angio abdomen wo con IMPRESSION: Nondiagnostic exam secondary to significant metallic artifact on the abdominal aortic stent graft.
== END 2021-12-09 13:05 | disposition home or self-care (01) ==
LOC: HO.MRI 13:04
PROVIDERS: Visit Provider Emergency Medicine
DX: R10.9 Unspecified abdominal pain (principal); I71.4 Abdominal aortic aneurysm, without rupture
CPT/HCPCS: 74185; A9585

== ENCOUNTER 2021-12-27 09:24 | Outpatient (REF) | payer MEDICARE, SELFPAY ==
--- NOTE | ~2021-12-27 | CT_ITS ---
EXAMINATION: CT ANGIOGRAM ABDOMEN AND PELVIS CLINICAL INFORMATION: Abdominal aortic aneurysm without rupture; melena, GI bleed. COMPARISON: CT 02/15/2021. MR angiogram abdomen 12/09/2021. TECHNIQUE: Multiple axial images were obtained through the abdomen and pelvis prior to and following the administration of 100 mL of Omnipaque 350 intravenous contrast. Images were reviewed on a dedicated 3-D workstation. This CT examination was performed using dose optimization techniques as appropriate, variously including the following: *Automated exposure control *Adjustment of mA and/or kV according to patient size (this includes techniques or standardized protocols for targeted exams where dose is matched to indication/reason for exam; i.e. extremities or head) *Use of iterative reconstruction technique DLP: 673 mGy-cm FINDINGS: VASCULAR: The distal descending thoracic aorta is normal in caliber and without dissection or other acute aortic syndrome. 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 The excluded sac measures up to 5.4 cm in diameter at the level of the inferior endplate of the L2 vertebral body, unchanged from the prior CT 02/15/2021. Post contrast administration, there are 2 foci of enhancement within the excluded aneurysm sac, anteriorly at the origin of the inferior mesenteric artery and posteriorly in the midline at the origin of the lumbar artery at the level of the L3 vertebral body. On delayed-phase images, there is increasing enhancement at multiple areas in the sac including the posterior right aspect of the aneurysm sac (image 36, series 14) and inferior anterior component. As described above, the anterior endoleak is being fed by the MADHU (12:89). The more inferior endoleak is being fed by lumbar arteries (12:94). Compared with the prior 02/15/2021 study, overall sac size has not changed significantly measuring about 5.7 x 5.0 cm in maximal transverse dimension (9:31 compare prior 9:37). Iliac bifurcations are unremarkable. The external iliac arteries are free of disease. Minimal calcific plaque present in the common femoral arteries without stenosis. The proximal profunda femoris and superficial femoral arteries are patent. Both internal iliac arteries demonstrate fusiform aneurysmal dilatation measuring just over 1 cm on each side. The celiac is patent. The SMA is patent. There are bilateral single renal arteries present that are patent. NON-VASCULAR FINDINGS: LUNG BASES: The visualized lung bases are unremarkable. LIVER, GALLBLADDER, AND BILIARY TREE: The liver is normal in size, shape, and attenuation. There is heterogeneous enhancement on the arterial phase but the portal venous phase appears normal. No focal hepatic lesion or biliary ductal dilatation is present. The gallbladder contains gallstones but otherwise is unremarkable with no evidence of gallbladder wall thickening, or obvious pericholecystic inflammatory changes. PANCREAS: Unremarkable. SPLEEN: Unremarkable. ADRENAL GLANDS: Unremarkable. KIDNEYS AND URETERS: The kidneys are normal in size, shape, and attenuation. Right-sided benign-appearing Bosniak class I renal cysts are present which need no further follow-up or imaging. No hydronephrosis, hydroureter, or calculi seen. No perinephric stranding. BLADDER: Only partially distended but unremarkable. GASTROINTESTINAL TRACT: The small and large bowel are unremarkable. The appendix is unremarkable. There is no evidence of active GI bleeding or extravasation seen to account for the patient's melena when noncontrast imaging is compared to the angiographic phase as well as the delayed phase. ABDOMINAL WALL: No significant hernia is appreciated. LYMPH NODES: Normal. PELVIC VISCERA: There is mild BPH. Seminal vesicles appear normal. OSSEOUS STRUCTURES: Mild degenerative changes present in the spine most marked at L4-L5 and L5-S1. No bony destructive lesions. CT/CT angio abdomen pelvis IMPRESSION: There are endoleaks in the aortic sac fed by the MADHU as well as lumbar arteries as described above. The sac size has remained relatively stable with maximal dimension of about 5.7 cm. Incidental note made of cholelithiasis, mild BPH and degenerative changes in the spine. Fleischner guidelines were followed.
[2021-12-27] MEDS: iohexoL 350 MG/ML 100 ML INFUS..BTL IV (10:12)
== END 2021-12-27 09:25 | disposition home or self-care (01) ==
LOC: HO.CT 09:24
PROVIDERS: Visit Provider Emergency Medicine
DX: I71.4 Abdominal aortic aneurysm, without rupture (principal)
CPT/HCPCS: 74174; Q9967

== ENCOUNTER 2022-05-26 21:15 | Emergency (ER) | payer MEDICARE, SELFPAY ==
--- NOTE | ~2022-05-26 | CT_ITS ---
EXAMINATION: CT HEAD WITHOUT CONTRAST CT CERVICAL SPINE WITHOUT CONTRAST CLINICAL INFORMATION: Fall COMPARISON: 01/30/2021 TECHNIQUE: Multidetector CT imaging of the head and cervical spine was performed without the use of intravenous contrast. Multiplanar reformats are reviewed. This CT examination was performed using dose optimization techniques as appropriate, variously including the following: *Automated exposure control *Adjustment of mA and/or kV according to patient size (this includes techniques or standardized protocols for targeted exams where dose is matched to indication/reason for exam; i.e. extremities or head) *Use of iterative reconstruction technique DLP: 1165 mGy-cm. FINDINGS: There is no evidence of acute intracranial hemorrhage or territorial infarction. No abnormal mass effect or midline shift is seen. Ley to white matter differentiation is well preserved. No extra-axial fluid collections are identified. The ventricles are normal in size. Moderate patchy subcortical and periventricular white matter low-attenuation changes redemonstrated, along with bilateral gangliocapsular lacunar infarcts. Right parietal calvarial subgaleal hematoma. The mastoid air cells and visualized portions of the paranasal sinuses are well-aerated. Atlantooccipital alignment is maintained. The vertebral bodies and posterior elements align normally. No acute fracture or subluxation. Vertebral body heights are maintained. Degenerative changes present throughout the spine. The paraspinal soft tissues are unremarkable. The imaged lung apices are clear CT/CT head/brain wo con IMPRESSION: * No acute intracranial pathology. Moderate chronic white matter small vessel ischemic changes and bilateral chronic gangliocapsular lacunar infarcts. * No cervical spine fracture or malalignment.
--- NOTE | ~2022-05-26 | CT_ITS ---
EXAMINATION: CT HEAD WITHOUT CONTRAST CT CERVICAL SPINE WITHOUT CONTRAST CLINICAL INFORMATION: Fall COMPARISON: 01/30/2021 TECHNIQUE: Multidetector CT imaging of the head and cervical spine was performed without the use of intravenous contrast. Multiplanar reformats are reviewed. This CT examination was performed using dose optimization techniques as appropriate, variously including the following: *Automated exposure control *Adjustment of mA and/or kV according to patient size (this includes techniques or standardized protocols for targeted exams where dose is matched to indication/reason for exam; i.e. extremities or head) *Use of iterative reconstruction technique DLP: 1165 mGy-cm. FINDINGS: There is no evidence of acute intracranial hemorrhage or territorial infarction. No abnormal mass effect or midline shift is seen. Ley to white matter differentiation is well preserved. No extra-axial fluid collections are identified. The ventricles are normal in size. Moderate patchy subcortical and periventricular white matter low-attenuation changes redemonstrated, along with bilateral gangliocapsular lacunar infarcts. Right parietal calvarial subgaleal hematoma. The mastoid air cells and visualized portions of the paranasal sinuses are well-aerated. Atlantooccipital alignment is maintained. The vertebral bodies and posterior elements align normally. No acute fracture or subluxation. Vertebral body heights are maintained. Degenerative changes present throughout the spine. The paraspinal soft tissues are unremarkable. The imaged lung apices are clear CT/CT cervical spine wo con IMPRESSION: * No acute intracranial pathology. Moderate chronic white matter small vessel ischemic changes and bilateral chronic gangliocapsular lacunar infarcts. * No cervical spine fracture or malalignment.
--- NOTE | ~2022-05-26 | CT_ITS ---
EXAMINATION CTA CHEST, ABDOMEN AND PELVIS CLINICAL INFORMATION: Left upper extremity pain. Numbness within bilateral lower extremities. Rule out dissection. COMPARISON: CT dated 02/15/2021 TECHNIQUE: Multidetector volumetric CT imaging of the chest, abdomen and pelvis was obtained after the administration of 85 mL Omnipaque 350 intravenous contrast without immediate adverse reactions. Coronal and sagittal reformats were reviewed, along with maximum intensity projection images created on an workstation.. This CT examination was performed using dose optimization techniques as appropriate, variously including the following: *Automated exposure control *Adjustment of mA and/or kV according to patient size (this includes techniques or standardized protocols for targeted exams where dose is matched to indication/reason for exam; i.e. extremities or head) *Use of iterative reconstruction technique DLP: 713 mGy-cm FINDINGS: VASCULAR: Normal caliber ascending aorta measuring 3.2 cm. No aortic dissection. Again seen is an aortobiiliac endovascular stent graft beginning just inferior celiac axis traversing a fusiform abdominal aortic aneurysm measuring 5.6 x 5.4 cm, stable from prior. Again seen are endoleaks, one of which originates in the region of the proximal right iliac arterial stent (type III), the other originating along the posterior aspect of the distal iliac stents within the inferior aspect of the aneurysm sac (type II or III). The former leads to blood which opacifies the inferior mesenteric artery Unchanged calcifications within the right lateral aspect of the aneurysm sac, likely calcified thrombus. Iliofemoral arteries are patent. Celiac axis and superior mesenteric artery are patent. Renal arteries are patent. NONVASCULAR: CHEST: No parenchymal consolidation or pneumonitis. No pneumothorax. Diffuse mild bronchial thickening without bronchiectasis. There is a flat nodule adjacent to the right major fissure most compatible with a perifissural lymph node. No suspicious pulmonary nodules. No pleural effusion. Normal heart size. Triple vessel coronary calcifications. No pericardial effusion. No mediastinal or hilar lymphadenopathy. ABDOMEN/PELVIS: HEPATOBILIARY: Liver normal in size, contour and morphology. No suspicious lesions. No intra or extrahepatic biliary dilation. Cholelithiasis. PANCREAS: Unremarkable. SPLEEN: Unremarkable. ADRENAL GLANDS: Unremarkable. KIDNEYS: Kidneys normal in size, axis and morphology demonstrating symmetric enhancement. Benign right renal cyst requires no further follow-up. No suspicious renal cysts or masses. No hydronephrosis or perinephric abnormality.. GASTROINTESTINAL TRACT: Scattered colonic diverticula. No evidence of diverticulitis. Stomach and small bowel unremarkable. LYMPH NODES: No lymphadenopathy. PERITONEUM/BODY WALL: Unremarkable. MUSCULOSKELETAL: No acute or suspicious osseous abnormalities. CT/CT angio abdomen pelvis IMPRESSION: * No aortic dissection. * Stable infrarenal abdominal aortic aneurysm status post aortobiiliac stent graft repair. 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 * Mild small airways disease. * Cholelithiasis. * Scattered colonic diverticula without evidence of diverticulitis.
[2022-05-26 21:20] VITALS: BP 137/75; PULSE 74; O2SAT 97
--- NOTE | 2022-05-26 21:22 | ECG_ITS ---
Test Reason : DIZZINESS Blood Pressure : / mmHG Vent. Rate : 075 BPM Atrial Rate : 075 BPM P-R Int : 190 ms QRS Dur : 098 ms QT Int : 384 ms P-R-T Axes : 058 039 083 degrees QTc Int : 428 ms Normal sinus rhythm Normal ECG When compared with ECG of 15-FEB-2021 02:51, No significant change was found Referred By: Generic ED Physician Electronically Signed By:CHEKO DEL CID MD
[2022-05-26 21:29] VITALS: BP 138/75; PULSE 77; RESP 16; O2SAT 97; BMI 23.6
[2022-05-26 21:39] LABS: MANUAL DIFF FLAG NO
[2022-05-26 21:48] LABS: Basophils Absolute Auto 0.1 X10*3/uL (0.0-0.2); Eosinophils Absolute Auto 0.1 X10*3/uL (0.0-0.4); Hematocrit 39.6 % (42.0-52.0); Hemoglobin 12.7 g/dl (14.0-18.0); Imm Gran Abs Auto 0.02 X10*3/uL (0.00-0.03); Imm Gran Pct Auto 0.3 % (0.0-0.4); Lymphocytes Absolute Auto 1.3 X10*3/uL (1.2-4.9); Lymphocytes Percent Auto 17.7 % (20-40); Mean Corpuscular HGB Conc 32.1 g/dl (31.0-36.0); Mean Corpuscular Hemoglobin 26.4 pg (27.0-33.0); Mean Corpuscular Volume 82.3 fL (80.0-98.0); Mean Platelet Volume 10.6 fL (9.4-12.4); Monocytes Absolute Auto 0.7 X10*3/uL (0.1-1.2); Neutrophils Absolute Auto 5.2 x10*3/uL (2.0-8.3); Platelet Count 185 X10*3/uL (160-400); Red Blood Count 4.81 X10*6/uL (4.60-5.80); Red Cell Distribution Width 15.4 % (11.0-16.0); White Blood Count 7.2 X10*3/uL (4.8-10.8)
[2022-05-26 21:56] LABS: INTERNATIONAL NORM RATIO 1.1 (0.9-1.1); Prothrombin Time 12.2 SEC (10.0-13.1)
[2022-05-26 21:56] LABS: Anion Gap 19 (12-20); Blood Urea Nitrogen 18 mg/dL (9-16); Calcium 9.3 mg/dL (8.4-10.2); Carbon Dioxide 20 mmol/L (22-29); Chloride 105 mmol/L (96-108); Creatinine Clr Calc Pharmacy 42.6; Estimated Glomerular Filt Rate 47; Glucose Random 250 mg/dL (60-115); Potassium 3.9 mmol/L (3.3-5.1); Sodium 140 mmol/L (135-145)
[2022-05-26 22:04] LABS: Troponin-I High Sensitivity < 3.5 ng/L (<3.5-35.0)
--- NOTE | 2022-05-26 22:04 | ED.SYNCOPE ---
HPI - Syncope General Chief Complaint: Dizziness Stated Complaint: Fall Time Seen by Provider: 05/26/22 21:53 Source: patient Mode of arrival: EMS History of Present Illness HPI narrative: 76-year-old male brought in by EMS for syncopal episode that was witnessed by other individuals at the [employer]. Patient states that he ?became out of it? after it had numerous drinks while at the [employer] club. He states that he has pain at the right back side of his head and denies any palpitations prior to the event. He currently denies any shortness of breath/chest pain/palpitations. Patient is on dual anti-platelet therapy for cardiac stents. Patient does report that his bilateral feet feel numb but says he is otherwise able to move them. Related Data Home Medications Medication Instructions Recorded Confirmed albuterol sulfate 2.5 mg/3 mL 1 vial inhalation QID PRN Wheezing 02/15/21 03/15/21 (0.083 %) solution for nebulization allopurinol 300 mg tablet 1 tab PO DAILY 02/15/21 03/15/21 cholecalciferol (vitamin D3) 50 1 cap PO DAILY 02/15/21 03/15/21 mcg (2,000 unit) capsule loratadine 10 mg tablet 1 tab PO DAILY PRN Allergic 02/15/21 03/15/21 Symptoms losartan 50 mg tablet 1 tab PO DAILY 02/15/21 03/15/21 Previous Rx's Medication Instructions Recorded omeprazole magnesium 20 mg 20 mg PO BID #60 tabs 02/17/21 tablet,delayed release (Prilosec OTC) clopidogrel 75 mg tablet (Plavix) 75 mg PO DAILY #90 tabs 04/27/22 Allergies Allergy/AdvReac Type Severity Reaction Status Date / Time No Known Allergies Allergy Mild NOT Verified 05/26/22 21:32 APPLICABLE Review of Systems Review of Systems: Pertinent positives and negatives as stated in HPI 10 point review of systems is otherwise negative. [facility] Past Medical History Source: nursing notes reviewed Medical History Abdominal aortic aneurysm without rupture Asthma Atherosclerotic cardiovascular disease CAD (coronary artery disease) Diabetes Essential hypertension Gout Hemorrhage of gastrointestinal tract Hypertension Type 2 diabetes mellitus with unspecified complications Surgical History Hernia History of cardiac catheterization History of heart artery stent Social History Social History Household Members: None Housing: Apartment Do you presently have visiting nurse or other home services: Yes Alcohol intake: current Alcohol intake frequency: 3 or more drinks per day Second Hand Smoke Exposure: No Advance Directives: No Advance Directives Information Provided: No service: No Current occupational status: retired Physical Exam Vital Signs: Vital Signs: Last Vital Signs Pulse 82 05/27/22 00:38 Resp 18 05/27/22 00:38 BP 167/84 H 05/27/22 00:38 Pulse Ox 98 05/27/22 00:38 O2 Del Method 05/27/22 00:38 BMI result Body Mass Index 23.6 VITAL SIGNS: Reviewed. GENERAL: Well developed, well nourished, in no acute distress. HEAD: Normocephalic/contusion noted to right occipital EYES: PERRLA, EOMI EARS: Ext canals without abnormality NOSE: Nares patent bilateral OROPHARYNX: no oral lesions noted, posterior pharynx clear NECK: C-collar is in place without midline cervical spine tenderness, no adenopathy LUNGS: Normal breath sounds. No adventitious sounds or accessory muscle use. SpO2<97> CARDIOVASCULAR: Regular rate and rhythm without noted murmurs, no JVD or lower extremity edema. ABDOMEN: Soft, non-tender, non-distended with bowel sounds. MUSCULOSKELETAL: No tenderness, deformities, or effusions noted on gross inspection. EXTREMITIES: No cyanosis, clubbing or edema. SKIN: Inspection of the skin reveals no rashes NEUROLOGIC: Alert and oriented x 4. Strength was grossly intact x 4 and patient reports change in sensation to bilateral lower extremities. Course Course Course Narrative: 76-year-old male with history and clinical presentation and will be evaluated for syncopal episode in terms of cardiac etiologies, as well as evaluation abdominal aortic aneurysm especially in light of bilateral lower extremity sensation changes. Review of all investigations without acute findings when compared to prior, patient has chronic stable anemia although there is a mild FLY, however given recent alcohol use this may explain and will encourage hydration. On review of all imaging there are no acute findings and on evaluation of patient's aorta in the context complaints sensation changes in bilateral lower extremities there are stable chronic endoleaks but otherwise no pathology to better explain patient's initial presentation other than underlying alcohol use. On ambulation patient has steady gait and denies any further sensory changes. Serial troponins are negative and no findings on EKG to better explain patient's presenting symptoms. I discussed all results and findings with patient at bedside and he is stable for discharge to home. MDM - Syncope Lab Data Result diagrams: 05/26/22 21:34 05/26/22 21:34 Labs: Lab Results 05/26/22 05/26/22 05/26/22 Range/Units 21:34 21:34 21:34 WBC 7.2 (4.8-10.8) X10*3/uL RBC 4.81 (4.60-5.80) X10*6/uL Hgb 12.7 L (14.0-18.0) g/dl Hct 39.6 L (42.0-52.0) % MCV 82.3 (80.0-98.0) fL MCH 26.4 L (27.0-33.0) pg MCHC 32.1 (31.0-36.0) g/dl RDW 15.4 (11.0-16.0) % Plt Count 185 (160-400) X10*3/uL MPV 10.6 (9.4-12.4) fL Immature Gran % (Auto) 0.3 (0.0-0.4) % Neut % (Auto) 71.0 (45-73) % Lymph % (Auto) 17.7 L (20-40) % Cole % (Auto) 9.0 (2-11) % Eos % (Auto) 1.0 (0-4) % Baso % (Auto) 1.0 (0-2) % Lymph # (Auto) 1.3 (1.2-4.9) X10*3/uL Cole # (Auto) 0.7 (0.1-1.2) X10*3/uL Eos # (Auto) 0.1 (0.0-0.4) X10*3/uL Baso # (Auto) 0.1 (0.0-0.2) X10*3/uL Abs Immat Gran (auto) 0.02 (0.00-0.03) X10*3/uL Absolute Neuts (auto) 5.2 (2.0-8.3) x10*3/uL Absolute Nucleated RBC 0.000 (0.0-0.012) X10*3/uL Nucleated RBC % (auto) 0.0 (0.0-0.2) /100WBC PT (10.0-13.1) SEC INR (0.9-1.1) Sodium 140 (135-145) mmol/L Potassium 3.9 (3.3-5.1) mmol/L Chloride 105 (96-108) mmol/L Carbon Dioxide 20 L (22-29) mmol/L Anion Gap 19 (12-20) BUN 18 H (9-16) mg/dL Creatinine 1.45 H (0.5-1.4) mg/dL Estim Creat Clear Calc 42.6 Estimated GFR 47 Random Glucose 250 H D (60-115) mg/dL Calcium 9.3 D (8.4-10.2) mg/dL Troponin I High Sens < 3.5 (<3.5-35.0) ng/L Urine Color Urine Appearance Urine pH (5.0-8.0) Ur Specific [place] (1.005-1.025) Urine Protein (NEG-TRACE) MG/DL Urine Glucose (UA) (NEG) MG/DL Urine Ketones (NEG) MG/DL Urine Blood (NEG) Urine Nitrite (NEG) Ur Leukocyte Esterase (NEG) Ethyl Alcohol 32 mg/dL 05/26/22 05/26/22 05/27/22 Range/Units 21:34 21:36 00:53 WBC (4.8-10.8) X10*3/uL RBC (4.60-5.80) X10*6/uL Hgb (14.0-18.0) g/dl Hct (42.0-52.0) % MCV (80.0-98.0) fL MCH (27.0-33.0) pg MCHC (31.0-36.0) g/dl RDW (11.0-16.0) % Plt Count (160-400) X10*3/uL MPV (9.4-12.4) fL Immature Gran % (Auto) (0.0-0.4) % Neut % (Auto) (45-73) % Lymph % (Auto) (20-40) % Cole % (Auto) (2-11) % Eos % (Auto) (0-4) % Baso % (Auto) (0-2) % Lymph # (Auto) (1.2-4.9) X10*3/uL Cole # (Auto) (0.1-1.2) X10*3/uL Eos # (Auto) (0.0-0.4) X10*3/uL Baso # (Auto) (0.0-0.2) X10*3/uL Abs Immat Gran (auto) (0.00-0.03) X10*3/uL Absolute Neuts (auto) (2.0-8.3) x10*3/uL Absolute Nucleated RBC (0.0-0.012) X10*3/uL Nucleated RBC % (auto) (0.0-0.2) /100WBC PT 12.2 (10.0-13.1) SEC INR 1.1 (0.9-1.1) Sodium (135-145) mmol/L Potassium (3.3-5.1) mmol/L Chloride (96-108) mmol/L Carbon Dioxide (22-29) mmol/L Anion Gap (12-20) BUN (9-16) mg/dL Creatinine (0.5-1.4) mg/dL Estim Creat Clear Calc Estimated GFR Random Glucose (60-115) mg/dL Calcium (8.4-10.2) mg/dL Troponin I High Sens (<3.5-35.0) ng/L Urine Color STRAW Urine Appearance CLEAR Urine pH 5.5 (5.0-8.0) Ur Specific [place] <= 1.005 (1.005-1.025) Urine Protein NEG (NEG-TRACE) MG/DL Urine Glucose (UA) NEG (NEG) MG/DL Urine Ketones NEG (NEG) MG/DL Urine Blood NEG (NEG) Urine Nitrite NEG (NEG) Ur Leukocyte Esterase NEG (NEG) Ethyl Alcohol Cancelled mg/dL Discharge Plan Discharge Clinical Impression: Alcohol intoxication, Fall, Syncope, vasovagal, Contusion of scalp Patient Disposition: Home, Self-Care Instructions: Alcohol Intoxication (ED), Fall Prevention for Older Adults (ED), Syncope in Older Adults (ED), Scalp Contusion in Adults (ED) Additional Instructions: 1. Reanudar todos los medicamentos caseros. 2. Cheri zena agua yolande los pr?ximos 2-3 d?as. 3. Rupal un seguimiento con austin proveedor de atenci?n primaria para hablar sobre aditya s?ntomas. Regrese a la valery de emergencias si los s?ntomas empeoran. Prescriptions: No Action clopidogrel [Plavix] 75 mg tablet 75 mg PO DAILY Qty: 90 2RF losartan 50 mg tablet 1 tab PO DAILY albuterol sulfate 2.5 mg /3 mL (0.083 %) solution for nebulization 1 vial inhalation QID PRN (Reason: Wheezing) allopurinol 300 mg tablet 1 tab PO DAILY loratadine 10 mg tablet 1 tab PO DAILY PRN (Reason: Allergic Symptoms) cholecalciferol (vitamin D3) 50 mcg (2,000 unit) capsule 1 cap PO DAILY omeprazole magnesium [Prilosec OTC] 20 mg tablet,delayed release (DR/EC) 20 mg PO BID Qty: 60 0RF Print Language: Yakut
[2022-05-26 22:47] LABS: Ethanol 32 mg/dL
[2022-05-27 00:38] VITALS: BP 167/84; PULSE 82; RESP 18; O2SAT 98
[2022-05-27] MEDS: iohexoL 350 MG/ML 100 ML INFUS..BTL 85 ML IV (00:39)
[2022-05-27 01:00] LABS: Appearance Urine CLEAR; Color Urine STRAW; Glucose Urine UA NEG (NEG); Leukocyte Esterase Urine NEG (NEG); Nitrite Urine NEG (NEG); PH 5.5 (5.0-8.0); Specific Gravity - Urine <= 1.005 (1.005-1.025); Urine Blood NEG (NEG); Urine Ketones NEG (NEG); Urine Protein NEG (NEG-TRACE)
[2022-05-27 01:57] LABS: Troponin-I High Sensitivity < 3.5 ng/L (<3.5-35.0)
[2022-05-27] MEDS: Acetaminophen 325 MG TABLET 975 MG PO (02:22)
== END 2022-05-27 02:28 | disposition home or self-care (01) ==
PROVIDERS: Emergency Provider Student in an Organized Health Care Education/Training Program
DX: F10.920 Alcohol use, unspecified with intoxication, uncomplicated (principal); Y90.1 Blood alcohol level of 20-39 mg/100 ml; R55 Syncope and collapse; S00.03XA Contusion of scalp, initial encounter; W22.8XXA Striking against or struck by other objects, initial encounter; I10 Essential (primary) hypertension; E11.9 Type 2 diabetes mellitus without complications; Y93.89 Activity, other specified; Y92.511 Restaurant or cafe as the place of occurrence of the external cause; Y99.9 Unspecified external cause status
CPT/HCPCS: 36415; 70450; 71275; 72125; 74174; 80048; 81003; 82077; 84484; 85025; 85610; 93005; 99284; 99285; Q9967

== ENCOUNTER 2022-07-07 14:55 | Outpatient (REF) | payer MEDICARE, SELFPAY ==
[2022-07-07 15:28] LABS: Hematocrit 42.6 % (42.0-52.0); Hemoglobin 13.7 g/dl (14.0-18.0); Mean Corpuscular HGB Conc 32.2 g/dl (31.0-36.0); Mean Corpuscular Hemoglobin 26.8 pg (27.0-33.0); Mean Corpuscular Volume 83.4 fL (80.0-98.0); Mean Platelet Volume 10.7 fL (9.4-12.4); Platelet Count 226 X10*3/uL (160-400); Red Blood Count 5.11 X10*6/uL (4.60-5.80); Red Cell Distribution Width 14.9 % (11.0-16.0); White Blood Count 9.1 X10*3/uL (4.8-10.8)
[2022-07-07 15:51] LABS: Anion Gap 14 (12-20); Blood Urea Nitrogen 23 mg/dL (9-16); Calcium 9.8 mg/dL (8.4-10.2); Carbon Dioxide 26 mmol/L (22-29); Chloride 105 mmol/L (96-108); Estimated Glomerular Filt Rate 54; Glucose Random 313 mg/dL (60-115); Potassium 4.4 mmol/L (3.3-5.1); Sodium 141 mmol/L (135-145)
[2022-07-07 15:55] LABS: Creatinine Urine 93.49 mg/dL; Protein/Creatinine Ratio, Ur 0.53 (<0.2); Total Protein Urine Random 50 mg/dL (<12)
== END 2022-07-07 14:56 | disposition home or self-care (01) ==
LOC: HO.LAB 14:55
PROVIDERS: PCP Internal Medicine; Visit Provider Internal Medicine Hypertension Specialist
DX: N18.31 Chronic kidney disease, stage 3a (principal)
CPT/HCPCS: 36415; 80048; 84156; 85027

== ENCOUNTER 2022-07-13 13:00 | Outpatient (RCR) | payer MEDICARE, SELFPAY | END 2022-09-02 15:15 | disposition home or self-care (01) | LOC: HO.PT 13:00 | PROVIDERS: PCP Internal Medicine; Visit Provider Physician Assistant | DX: M54.2 Cervicalgia (principal); M13.812 Other specified arthritis, left shoulder | CPT/HCPCS: 97110; 97161 ==

== ENCOUNTER 2022-08-18 12:50 | Inpatient (IN) | payer OTHER, SELFPAY ==
[2022-08-18] VITALS (10 sets, daily range): BP systolic 87–116; BP diastolic 52–68; PULSE 84–104; RESP 16–24; TEMP 36.2–37.7; O2SAT 88–98; BMI 22.4
--- NOTE | ~2022-08-18 | XR_ITS ---
EXAMINATION: XR CHEST CLINICAL INFORMATION: Cough. COMPARISON: 08/21/2018 chest radiographs. TECHNIQUE: Frontal view of the chest was obtained. FINDINGS: Kyphotic positioning is suboptimal. Mild linear markings are seen in the left mid lung and lung bases. The heart and mediastinal structures are unremarkable. XR/XR chest 1V IMPRESSION: Mild linear atelectasis/scarring without definitive infiltrate.
--- NOTE | ~2022-08-18 | CT_ITS ---
EXAMINATION: CT CHEST, ABDOMEN AND PELVIS WITHOUT CONTRAST CLINICAL INFORMATION: Fever COMPARISON: May 27, 2022 TECHNIQUE: Multidetector volumetric imaging was performed from the thoracic inlet through the pubic symphysis without oral or IV contrast. Sagittal and coronal reformatted images were obtained on the technologist workstation. This CT examination was performed using dose optimization techniques as appropriate, variously including the following: *Automated exposure control *Adjustment of mA and/or kV according to patient size (this includes techniques or standardized protocols for targeted exams where dose is matched to indication/reason for exam; i.e. extremities or head) *Use of iterative reconstruction technique DLP: 342.90 mGy-cm. FINDINGS: There is diffuse motion artifact present making evaluation of possible lung nodules difficult. CHEST: Lungs: Central airways are patent. There is prominent bronchial wall thickening seen in the lower lobes bilaterally with some mild dependent airspace disease. Above findings could be related to interstitial disease of infectious in etiology. No confluent pneumonitis is appreciated. There is a 9 x 6 x 3 mm density seen in the region of the junctions of the minor fissure and right major fissure on image [address] series #22 which may represent fissural lymph nodes. This was not as prominent on study of May 27, 2022 where it measured approximately 7 x 5 mm in size and malignancy cannot be excluded. There is a 4 mm noncalcified nodule seen within the left upper lobe on image [address] series #22 which I do not see on the previous study.. Mediastinum: Thyroid appears unremarkable. Heart normal size. There is prominent coronary artery calcification present. No pericardial effusion. No thoracic aortic aneurysm. No mediastinal or hilar lymphadenopathy. Pleura: There is no significant effusion. No pleural mass or thickening. Chest Wall/Axilla: Unremarkable. ABDOMEN/PELVIS: Liver, Gallbladder, Biliary Tree: The liver is normal in size, shape, and attenuation. No focal hepatic lesion or biliary ductal dilatation is present. The gallbladder is distended with thickened wall and pericholecystic fluid and fat streaking consistent with acute cholecystitis. Cholelithiasis is present. Pancreas: Unremarkable. Spleen: Unremarkable. Adrenal Glands: Unremarkable. Kidneys and Ureters: The kidneys are normal in size, shape, and attenuation. No hydronephrosis or hydroureter or calculi seen. There is a cyst in the upper pole of the right kidney. There is bilateral perinephric stranding present. Bladder: Unremarkable. Gastrointestinal Tract: No dilated loops of large or small bowel are evident. No free air or free fluid is seen. There is distention of the first and second portions of the duodenum in region of some fat stranding however the fat stranding is centered on the gallbladder and above finding is probably not related to a duodenal ulcer There is mild diverticulosis of the right colon. No pericolonic inflammatory changes seen. The appendix appears unremarkable. Abdominal Wall: No significant hernia is demonstrated. Soft tissue density about the right inguinal region may be related to previous surgical repair of a hernia. Lymph Nodes: No lymphadenopathy identified. Vascular: Patient is status post repair of abdominal aortic aneurysm with aortic stent graft. The aneurysm sac measures up to 5.9 x 5.2 cm in size. When measuring the same location on prior study of May 27, 2022 the aneurysm is stable in size. Pelvic Viscera: Unremarkable. Osseous Structures: No suspicious destructive bony lesion is identified. There is significant degenerative disc disease seen at the L5-S1 level. CT/CT abdomen pelvis wo IV con IMPRESSION: Acute cholecystitis. Cholelithiasis. Right lung lesion adjacent to the major minor fissure which appears slightly more prominent than on previous study of May 27, 2022. According to the UPDATED 2017 Fleischner Society recommendations, the advised follow-up imaging for a single solid nodule measuring 8 mm or greater is: Consider CT, PET/CT, or tissue sampling at 3 months. Bilateral lower lobe interstitial disease.
--- NOTE | ~2022-08-18 | CT_ITS ---
EXAMINATION: CT HEAD WITHOUT CONTRAST CLINICAL INFORMATION: Fever COMPARISON: 05/27/2022 TECHNIQUE: Contiguous axial imaging was performed from the skull base to vertex without intravenous administration of contrast. This CT examination was performed using dose optimization techniques as appropriate, variously including the following: *Automated exposure control *Adjustment of mA and/or kV according to patient size (this includes techniques or standardized protocols for targeted exams where dose is matched to indication/reason for exam; i.e. extremities or head) *Use of iterative reconstruction technique DLP: 842 mGy-cm FINDINGS: There is no midline shift. There is no mass effect. There is no hemorrhage. The basilar cisterns appear patent. The posterior fossa is grossly within normal limits. There is no extra-axial collection. There is once again areas of scattered white matter ischemic change. Once again some high density in the brain on the right likely represents calcification. No extra-axial collection. Grossly clear sinuses on the bone windows. CT/CT head/brain wo IV con IMPRESSION: Negative acute noncontrast CT of the brain.
--- NOTE | ~2022-08-18 | CT_ITS ---
EXAMINATION: CT soft tissue neck wo IV con CLINICAL INFORMATION: sore throat. Chucho angina? Retropharyngeal absces COMPARISON: None. TECHNIQUE: Helical imaging of the neck was performed in the axial plane with generation of coronal and sagittal reformatted images. This CT examination was performed using dose optimization techniques as appropriate, variously including the following: *Automated exposure control. *Adjustment of mA and/or kV according to patient size (this includes techniques or standardized protocols for targeted exams where dose is matched to indication/reason for exam; i.e. extremities or head). *Use of iterative reconstruction technique. DLP: 631.76 mGy-cm. FINDINGS: Motion degraded examination. Nasopharynx/skull base: The fat planes of the skull base and soft tissues of the nasopharynx are unremarkable. The paranasal sinuses and mastoid air cells are well aerated. The temporomandibular joints are normal. Suprahyoid neck: The oropharynx, oral cavity, and bilateral salivary gland tissues are unremarkable. No soft tissue fluid collection. Normal appearance of the floor of mouth. Infrahyoid neck: The hypopharynx and larynx are unremarkable. No aerodigestive tract mass. No retropharyngeal fluid collection. Thyroid: The thyroid gland is normal. Lymph nodes: There is no cervical chain lymphadenopathy. Lung apices: The partially visualized lung apices are clear. There is circumferential wall thickening of the upper thoracic esophagus. Vascular structures: Not evaluated in the absence of intravenous contrast. Osseous structures: The osseous structures are intact without suspicious focal lesion. Multilevel degenerative changes of the cervical spine, most notable for left greater than right facet arthropathy. Evidence of prior right mandibular molar dental extraction. Other: The imaged portions of the brain parenchyma are unremarkable. CT/CT soft tissue neck wo IV con IMPRESSION: 1. Somewhat limited evaluation of the soft tissues of the neck secondary to motion degradation and in the absence of intravenous contrast. No imaging findings of infection involving the soft tissues of the neck. 2. Circumferential wall thickening of the upper thoracic esophagus. Correlate clinically for esophagitis.
--- NOTE | 2022-08-18 13:21 | ECG_ITS ---
Test Reason : WEAKNESS Blood Pressure : / mmHG Vent. Rate : 097 BPM Atrial Rate : 097 BPM P-R Int : 138 ms QRS Dur : 098 ms QT Int : 354 ms P-R-T Axes : 040 006 076 degrees QTc Int : 449 ms Normal sinus rhythm Normal ECG When compared with ECG of 26-MAY-2022 21:21, No significant change was found Referred By: Pan Major Electronically Signed By:EDEN ALDRIDGE MD
--- NOTE | 2022-08-18 13:35 | ED.GENADULT ---
HPI - General Adult General Chief complaint: General Medical Stated complaint: DENTAL PAIN Time Seen by Provider: 08/18/22 13:13 Source: patient Mode of arrival: ambulatory Limitations: no limitations History of Present Illness HPI narrative: 76-year-old male with past medical history of gout, asthma, GERD, hypertension, and diabetes sent from the ED for cough, sore throat, body aches, and lethargy for couple of days. Patient is status post tooth extraction last week . As per EMS and family patient slightly altered. Patient alert oriented x2 Related Data Home Medications Medication Instructions Recorded Confirmed albuterol sulfate 2.5 mg/3 mL 1 vial inhalation QID PRN Wheezing 02/15/21 08/18/22 (0.083 %) solution for nebulization allopurinol 300 mg tablet 1 tab PO DAILY 02/15/21 08/18/22 cholecalciferol (vitamin D3) 50 1 cap PO DAILY 02/15/21 08/18/22 mcg (2,000 unit) capsule loratadine 10 mg tablet 1 tab PO DAILY PRN Allergic 02/15/21 08/18/22 Symptoms losartan 50 mg tablet 1 tab PO DAILY 02/15/21 08/18/22 amlodipine 2.5 mg tablet 1 tab PO QPM 08/18/22 08/18/22 atenolol 50 mg tablet 1 tab PO DAILY 08/18/22 08/18/22 atorvastatin 80 mg tablet 1 tab PO BEDTIME 08/18/22 08/18/22 gabapentin 100 mg capsule 1 cap PO TID 08/18/22 08/18/22 tamsulosin 0.4 mg capsule 1 cap PO QPM 08/18/22 08/18/22 trazodone 50 mg tablet 1 tab PO BEDTIME 08/18/22 08/18/22 Previous Rx's Medication Instructions Recorded omeprazole magnesium 20 mg 20 mg PO BID #60 tabs 02/17/21 tablet,delayed release (Prilosec OTC) clopidogrel 75 mg tablet (Plavix) 75 mg PO DAILY #90 tabs 04/27/22 Allergies Allergy/AdvReac Type Severity Reaction Status Date / Time No Known Allergies Allergy Mild NOT Verified 05/26/22 21:32 APPLICABLE Review of Systems Review of Systems: COugh, sore throat Yes all other systems are reviewed and are negative PMFSH Past Medical History Medical History Abdominal aortic aneurysm without rupture Asthma Atherosclerotic cardiovascular disease CAD (coronary artery disease) Diabetes Essential hypertension Gout Hemorrhage of gastrointestinal tract Hypertension Type 2 diabetes mellitus with unspecified complications Surgical History Hernia History of cardiac catheterization History of heart artery stent Social History Social History Household Members: None Housing: Apartment Do you presently have visiting nurse or other home services: Yes Alcohol intake: current Alcohol intake frequency: does not drink Smoked in Last 30 Days: No Second Hand Smoke Exposure: No Use of substances other than those prescribed or required for medical reasons: No Advance Directives: Yes Advance Directives on File: Yes Advance Directives Date on File: 02/15/21 service: No Current occupational status: retired Physical Exam ED Vital Signs: Vital Signs - 24 hr 08/18/22 13:11 08/18/22 13:26 08/18/22 13:49 Temperature 99.8 F Pulse Rate 99 98 93 Respiratory Rate 24 H 24 H 22 H Blood Pressure 89/52 L 87/55 L 90/53 L Pulse Oximetry 96 96 97 Oxygen Delivery Method Nasal Cannula Room Air Nasal Cannula Oxygen Flow Rate 3 08/18/22 14:15 08/18/22 14:47 08/18/22 15:14 Temperature 98.9 F Pulse Rate 91 90 87 Respiratory Rate 20 20 20 Blood Pressure 116/65 102/61 95/57 L Pulse Oximetry 97 96 94 Oxygen Delivery Method Nasal Cannula Nasal Cannula Nasal Cannula Oxygen Flow Rate 3 3 3 08/18/22 15:36 08/18/22 17:22 Temperature Pulse Rate 89 84 Respiratory Rate 20 18 Blood Pressure 102/61 102/63 Pulse Oximetry 97 98 Oxygen Delivery Method Nasal Cannula Nasal Cannula Oxygen Flow Rate 3 3 BMI result Body Mass Index 22.4 Const General: cooperative, healthy appearing, comfortable, no acute distress, well developed, alert, awake and Physically active Orientation/consciousness: oriented to time HENMT Other: Negative for any pain swelling, or swelling of floor of mouth. Negative drooling. Head: Yes normal to inspection, Yes No palpable skull fracture present, Yes normocephalic, Yes atraumatic and No abrasion Throat: Yes posterior oropharynx normal, Yes tonsils normal and Yes uvula midline Neck Neck: Yes normal visual inspection, Yes full ROM, Yes no lymphadenopathy, Yes no meningeal signs, Yes trachea midline, Yes supple, No anterior neck swelling and No tender Chest Chest palpation & inspection: normal inspection of the chest and normal palpation of entire chest wall Resp Effort & Inspection: normal respiratory effort and able to speak in complete sentences Auscultation: clear to auscultation bilaterally Cardio Jugular venous distension: no JVD Heart sounds: S1 normal heart sound present and S2 normal heart sound present GI Inspection: Yes normal to inspection and No abdominal wall ecchymosis Palpation (GI): Soft to palpation, not firm, nontender, no guarding and not rigid General: No CVA tenderness and Yes no CVA tenderness Back/Spine/Pelvis Back: no CVA tenderness, No CVA tenderness and No back tenderness Skin General skin exam: no rashes or lesions noted and elasticity normal Neuro Other: Alert oriented x2. Negative for any neuro deficits General: oriented to time and no meningeal signs Extrem General: Yes normal to inspection and Yes full ROM Psych Appearance: grossly normal, well kempt and not disheveled Course Course Course Narrative: As per EMS patient's O2 saturation on room air was 88%. Was sent for chest x-ray antibiotics ordered, labs ordered. Sepsis protocol called around 13:20. Although negative for any neck swelling probably was sent for neck CT to rule out any Chucho angina. Patient at baseline is not on any antibiotics. Reevaluation(s) Reevaluation #1: Patient's FLY. Not able to do IV contrast of soft tissue neck. Antibiotics already given. Blood pressure improved after fluids. Will do dry soft tissue neck, chest CT, abdominal CT. Very unlikely patient is having Chucho angina patient does not have any neck swelling, submandibular swelling, or floor of the mouth swelling. Patient is not drooling. Time: 14:21 Reevaluation #2: Blood pressure improved with fluids. Patient no longer altered. Patient alert oriented x3. states he is at baseline. Patient confirms he was coughing and sore throat for 7 days. Patient is sent for imaging waiting for results. Patient positive for bandemia. Bands are 24. Patient already received antibiotics. Waiting for results of imaging. Patient will give urine when he had the need for to give urine Time: 15:36 Reevaluation #3: Patient refused Dias and will like to wait to give urine. Still waiting on imaging results. Time: 16:51 Additional Reevaluation(s): Abdominal CT scan and chest shows acute cholecystitis although patient does not have any abdominal pain and also bilateral lower lobe interstitial disease most likely pneumonia patient already given antibiotics. Case discussed with hospitalist Dr. Phipps who recommend admission for pnuemonia. Surgery will follow as constul and contacted by hospitatlist team Medical Decision Making MDM Narrative Medical decision making narrative: Bilateral pneumonia. Acute cholecystitis Lab Data Result diagrams: 08/18/22 13:45 08/18/22 13:45 Labs: Lab Results 08/18/22 08/18/22 08/18/22 Range/Units 13:45 13:45 13:45 WBC 14.1 H (4.8-10.8) X10*3/uL RBC 4.32 L (4.60-5.80) X10*6/uL Hgb 11.5 L (14.0-18.0) g/dl Hct 34.6 L (42.0-52.0) % MCV 80.1 (80.0-98.0) fL MCH 26.6 L (27.0-33.0) pg MCHC 33.2 (31.0-36.0) g/dl RDW 14.6 (11.0-16.0) % Plt Count 109 L D (160-400) X10*3/uL MPV 12.1 (9.4-12.4) fL Immature Gran % (Auto) Cancelled Neut % (Auto) Cancelled Lymph % (Auto) Cancelled [place] % (Auto) Cancelled Eos % (Auto) Cancelled Baso % (Auto) Cancelled Lymph # (Auto) Cancelled [place] # (Auto) Cancelled Eos # (Auto) Cancelled Baso # (Auto) Cancelled Abs Immat Gran (auto) Cancelled Absolute Neuts (auto) Cancelled Absolute Nucleated RBC 0.000 (0.0-0.012) X10*3/uL Nucleated RBC % (auto) 0.0 (0.0-0.2) /100WBC Neutrophils % (Manual) 71 (45-73) % Band Neutrophils % 24 H (3-5) % Lymphocytes % (Manual) 2 L (20-40) % Monocytes % (Manual) 3 (2-11) % Abs Neuts (Manual) 13.4 H (2.0-8.3) X10*3/uL Lymphocytes # (Manual) 0.3 L (1.2-4.9) X10*3/uL Monocytes # (Manual) 0.4 (0.1-1.2) X10*3/uL Platelet Estimate SLIGHTLY DECREASED (NORMAL) Plt Morphology Comment NORMAL RBC Morphology NOTED Acanthocytes (Spur) 3+ (>5) /OIF PT 13.3 H (10.0-13.1) SEC INR 1.2 H (0.9-1.1) APTT 25.8 L (26.0-36.4) SEC Sodium 138 (135-145) mmol/L Potassium 3.0 L D (3.3-5.1) mmol/L Chloride 103 (96-108) mmol/L Carbon Dioxide 21 L (22-29) mmol/L Anion Gap 17 (12-20) BUN 62 H D (9-16) mg/dL Creatinine 2.79 H (0.5-1.4) mg/dL Estim Creat Clear Calc 21.5 Estimated GFR 22 Random Glucose 272 H (60-115) mg/dL Lactic Acid (0.5-2.0) mmol/L Calcium 8.1 L D (8.4-10.2) mg/dL Total Bilirubin 1.2 H (0.0-1.0) mg/dL AST 27 D (5-37) U/L ALT 24 (0-40) U/L Alkaline Phosphatase 137 H (39-117) U/L Troponin I High Sens (<3.5-35.0) ng/L B-Natriuretic Peptide (<100) pg/mL Total Protein 5.3 L (6.5-8.0) g/dL Albumin 3.2 L (3.5-5.0) g/dL Urine Color Urine Appearance Urine pH (5.0-9.0) Ur Specific [place] (1.005-1.025) Urine Protein (Neg-Trace) mg/dL Urine Glucose (UA) (Negative) mg/dL Urine Ketones (Negative) mg/dL Urine Blood (Negative) Urine Nitrite (Negative) Ur Leukocyte Esterase (Negative) Urine RBC (0-2) /HPF Urine WBC (0-5) /HPF Ur Squamous Epith Cells (0-2) /HPF Ur Transition Epith Cell Ur Renal Epithelial Cell Urine Bacteria (None Seen) Hyaline Casts (0-2) /LPF Granular Casts COVID-19 (ERENDIRA) (Negative) COVID-19 Clin Com Influenza Type A (PCR) (Negative) Influenza Type B (PCR) (Negative) RSV RNA Qual (PCR) (Negative) SARS-CoV-2 RNA (RT-PCR) (Negative) 08/18/22 08/18/22 08/18/22 Range/Units 13:45 13:45 13:45 WBC (4.8-10.8) X10*3/uL RBC (4.60-5.80) X10*6/uL Hgb (14.0-18.0) g/dl Hct (42.0-52.0) % MCV (80.0-98.0) fL MCH (27.0-33.0) pg MCHC (31.0-36.0) g/dl RDW (11.0-16.0) % Plt Count (160-400) X10*3/uL MPV (9.4-12.4) fL Immature Gran % (Auto) Neut % (Auto) Lymph % (Auto) [place] % (Auto) Eos % (Auto) Baso % (Auto) Lymph # (Auto) [place] # (Auto) Eos # (Auto) Baso # (Auto) Abs Immat Gran (auto) Absolute Neuts (auto) Absolute Nucleated RBC (0.0-0.012) X10*3/uL Nucleated RBC % (auto) (0.0-0.2) /100WBC Neutrophils % (Manual) (45-73) % Band Neutrophils % (3-5) % Lymphocytes % (Manual) (20-40) % Monocytes % (Manual) (2-11) % Abs Neuts (Manual) (2.0-8.3) X10*3/uL Lymphocytes # (Manual) (1.2-4.9) X10*3/uL Monocytes # (Manual) (0.1-1.2) X10*3/uL Platelet Estimate (NORMAL) Plt Morphology Comment RBC Morphology Acanthocytes (Spur) /OIF PT (10.0-13.1) SEC INR (0.9-1.1) APTT (26.0-36.4) SEC Sodium (135-145) mmol/L Potassium (3.3-5.1) mmol/L Chloride (96-108) mmol/L Carbon Dioxide (22-29) mmol/L Anion Gap (12-20) BUN (9-16) mg/dL Creatinine (0.5-1.4) mg/dL Estim Creat Clear Calc Estimated GFR Random Glucose (60-115) mg/dL Lactic Acid 1.5 (0.5-2.0) mmol/L Calcium (8.4-10.2) mg/dL Total Bilirubin (0.0-1.0) mg/dL AST (5-37) U/L ALT (0-40) U/L Alkaline Phosphatase (39-117) U/L Troponin I High Sens 25.5 D (<3.5-35.0) ng/L B-Natriuretic Peptide (<100) pg/mL Total Protein (6.5-8.0) g/dL Albumin (3.5-5.0) g/dL Urine Color Urine Appearance Urine pH (5.0-9.0) Ur Specific [place] (1.005-1.025) Urine Protein (Neg-Trace) mg/dL Urine Glucose (UA) (Negative) mg/dL Urine Ketones (Negative) mg/dL Urine Blood (Negative) Urine Nitrite (Negative) Ur Leukocyte Esterase (Negative) Urine RBC (0-2) /HPF Urine WBC (0-5) /HPF Ur Squamous Epith Cells (0-2) /HPF Ur Transition Epith Cell Ur Renal Epithelial Cell Urine Bacteria (None Seen) Hyaline Casts (0-2) /LPF Granular Casts COVID-19 (ERENDIRA) Negative (Negative) COVID-19 Clin Com See Note Influenza Type A (PCR) (Negative) Influenza Type B (PCR) (Negative) RSV RNA Qual (PCR) (Negative) SARS-CoV-2 RNA (RT-PCR) (Negative) 08/18/22 08/18/22 08/18/22 Range/Units 13:45 15:36 17:24 WBC (4.8-10.8) X10*3/uL RBC (4.60-5.80) X10*6/uL Hgb (14.0-18.0) g/dl Hct (42.0-52.0) % MCV (80.0-98.0) fL MCH (27.0-33.0) pg MCHC (31.0-36.0) g/dl RDW (11.0-16.0) % Plt Count (160-400) X10*3/uL MPV (9.4-12.4) fL Immature Gran % (Auto) Neut % (Auto) Lymph % (Auto) [place] % (Auto) Eos % (Auto) Baso % (Auto) Lymph # (Auto) [place] # (Auto) Eos # (Auto) Baso # (Auto) Abs Immat Gran (auto) Absolute Neuts (auto) Absolute Nucleated RBC (0.0-0.012) X10*3/uL Nucleated RBC % (auto) (0.0-0.2) /100WBC Neutrophils % (Manual) (45-73) % Band Neutrophils % (3-5) % Lymphocytes % (Manual) (20-40) % Monocytes % (Manual) (2-11) % Abs Neuts (Manual) (2.0-8.3) X10*3/uL Lymphocytes # (Manual) (1.2-4.9) X10*3/uL Monocytes # (Manual) (0.1-1.2) X10*3/uL Platelet Estimate (NORMAL) Plt Morphology Comment RBC Morphology Acanthocytes (Spur) /OIF PT (10.0-13.1) SEC INR (0.9-1.1) APTT (26.0-36.4) SEC Sodium (135-145) mmol/L Potassium (3.3-5.1) mmol/L Chloride (96-108) mmol/L Carbon Dioxide (22-29) mmol/L Anion Gap (12-20) BUN (9-16) mg/dL Creatinine (0.5-1.4) mg/dL Estim Creat Clear Calc Estimated GFR Random Glucose (60-115) mg/dL Lactic Acid (0.5-2.0) mmol/L Calcium (8.4-10.2) mg/dL Total Bilirubin (0.0-1.0) mg/dL AST (5-37) U/L ALT (0-40) U/L Alkaline Phosphatase (39-117) U/L Troponin I High Sens (<3.5-35.0) ng/L B-Natriuretic Peptide 60 (<100) pg/mL Total Protein (6.5-8.0) g/dL Albumin (3.5-5.0) g/dL Urine Color Dark Yellow Urine Appearance Cloudy Urine pH 5.0 (5.0-9.0) Ur Specific [place] 1.025 (1.005-1.025) Urine Protein 100 (2+) H (Neg-Trace) mg/dL Urine Glucose (UA) Negative (Negative) mg/dL Urine Ketones Trace (Negative) mg/dL Urine Blood Negative (Negative) Urine Nitrite Negative (Negative) Ur Leukocyte Esterase Negative (Negative) Urine RBC 0-2 (0-2) /HPF Urine WBC 0-5 (0-5) /HPF Ur Squamous Epith Cells 6-10 (0-2) /HPF Ur Transition Epith Cell Present Ur Renal Epithelial Cell Present Urine Bacteria None Seen (None Seen) Hyaline Casts >20 (0-2) /LPF Granular Casts Present COVID-19 (ERENDIRA) (Negative) COVID-19 Clin Com Influenza Type A (PCR) NEGATIVE (Negative) Influenza Type B (PCR) NEGATIVE (Negative) RSV RNA Qual (PCR) NEGATIVE (Negative) SARS-CoV-2 RNA (RT-PCR) NEGATIVE (Negative) ECG Data Interpretation: Normal sinus rhythm. Normal EKG. Ventricular rate 97. Pr interval 118. QRS 98. QTC 449. Negative STEMI Discharge Plan Discharge Clinical Impression: Pneumonia, Acute cholecystitis, FLY (acute kidney injury) Patient Disposition: Admitted As Inpatient
--- NOTE | 2022-08-18 13:40 | PC.NURSE ---
Pt is alert/oriented x 2 , unable to recite year. Appears weak on stretcher but responsive to verbal stimuli. NSR on tele. Hypotensive SBP 90s, fluids started and second 18g IV placed. Sat 96% on 3 lpm via nc, tachypenic at 22-24. Skin hot, pink and dry. Fluids initiated. Abx to be hung
[2022-08-18] MEDS: Azithromycin 500 MG in 0.9 % Sodium Chloride 250 ML 125 MG IV (13:46)
--- OUTSIDE RECORDS SUMMARY | 2022-08-18 13:46 | XMS_ITS | Continuity of Care Document ---
:1945 Author Organization [facility] Address [address] [place] [phone]- Care Team Providers Name Role Phone Fish SILVER, Princess Escobedo Primary Care Physician Encounter [place] Date(s): 02/12/22 - 06/12/22 [facility] [address] [place], [place] [address] Attending Physician: iWll Hdz MD Admitting Physician: Will Hdz MD Allergies, Adverse Reactions, Alerts No Known Allergies Medications allopurinol 300 mg oral tablet 1 tablet = 300 mg, By Mouth, Daily, # 30 tablet, 0 Refills, Maintenance, Tablet Start Date: 09/27/13 Status: Orderedaspirin 81 mg oral enteric coated tablet 1 tablet = 81 mg, By Mouth, Daily, # 30 tablet, 0 Refills, Maintenance, EC Tablet Start Date: 09/27/13 Status: Orderedatenolol 100 mg oral tablet 1 tablet = 100 mg, By Mouth, Daily, # 30 tablet, 0 Refills, Maintenance, Tablet Start Date: 09/27/13 Status: Orderedatorvastatin 80 mg oral tablet 1 tablet = 80 mg, By Mouth, Daily, 0 Refills, Maintenance Start Date: 05/18/17 Status: OrderedbuPROPion 150 mg/12 hours (SR) oral tablet, extended release 1 tablet = 150 mg, By Mouth, 2 times a day, 0 Refills, Maintenance, 07/10/19 10:57:18 EDT Start Date: 07/10/19 Status: Orderedclopidogrel 75 mg oral tablet 75 mg, 1, tablet, By Mouth, Daily, Refills 0, Maintenance, 08/09/19 11:46:41 EDT Start Date: 08/09/19 Status: OrderedFlomax 0.4 mg oral capsule 0.4 mg, 1, capsule, By Mouth, Daily, # 30 capsule, Refills 0, Tot. Refills 0, Maintenance, 08/06/19 15:21:11 EDT, Route to Pharmacy Electronically, [id number], [facility]/pharmacy #[id number] Start Date: 08/06/19 Status: Orderedgabapentin 100 mg oral capsule 300 mg, 3, capsule, By Mouth, Daily, Refills 0, Maintenance, 06/07/19 12:37:06 EDT Start Date: 06/07/19 Status: Orderedlosartan 50 mg oral tablet 50 mg, 1, tablet, By Mouth, Daily, # 30 tablet, Refills 0, Maintenance, 06/07/19 12:36:39 EDT Start Date: 06/07/19 Status: OrderedmetFORMIN 1000 mg oral tablet 1 tablet = 1,000 mg, By Mouth, 2 times a day, 0 Refills, Maintenance, 07/10/19 10:56:49 EDT Start Date: 07/10/19 Status: OrderedVentolin 90 mcg Inhaler 2, puffs, Inhalation, 4 times a day, Refills 0, Maintenance, 05/18/17 8:17:00 Start Date: 05/18/17 Status: OrderedVitamin D3 By Mouth, 0 Refills, Maintenance, 04/01/15 8:51:39 Start Date: 04/01/15 Status: Ordered Problem List Condition Effective Dates Status Health Status Informant AAA (abdominal aortic Active aneurysm)(Confirmed) CAD (coronary artery disease), JALEESA to Active LAD(Confirmed) Diabetes mellitus, diet Active controlled(Confirmed) Duodenal ulcer(Confirmed) Active GERD (gastroesophageal reflux Active disease)(Confirmed) Gout(Confirmed) Active H/O Spinal surgery(Confirmed) Active H/O hernia repair(Confirmed) Active Hypercholesteremia(Confirmed) Active HLD (hyperlipidemia)(Confirmed) Active HTN (hypertension)(Confirmed) Active ED (erectile dysfunction)(Confirmed) Active OA (osteoarthritis)(Confirmed) Active Syncope and collapse(Confirmed) Active Varicose veins of legs(Confirmed) Active Vitamin D deficiency(Confirmed) Active Social History Social History Type Response Smoking Status Never smoker entered on: 04/01/15 Sex
--- OUTSIDE RECORDS SUMMARY | 2022-08-18 13:46 | XMS_ITS | Continuity of Care Document ---
:1945 Author Organization [facility] Address [address] [place] [address]- Care Team Providers Name Role Phone Princess Whitten NP, V Primary Care Physician Encounter [facility] [id number] Date(s): 11/12/19 - 03/11/20 [facility] [address] [place] [address]- [facility] Attending Physician: Shayy Chase NP Admitting Physician: Shayy Chase NP Referring Physician: Princess Whitten NP, V Allergies, Adverse Reactions, Alerts Substance Reaction Severity Status NKA Active Medications allopurinol 300 mg oral tablet 1 [...] 08/06/19 15:21:11 EDT, Route to Pharmacy Electronically, [id number], [facility]/pharmacy #[id number] Start Date: 08/06/19 Status: Orderedgabapentin 100 mg [...]
--- OUTSIDE RECORDS SUMMARY | 2022-08-18 13:46 | XMS_ITS | Continuity of Care Document ---
:1945 Author Organization [facility] Address [address] [place] [address]- Care Team Providers Name Role Phone Princess Whitten NP, V Primary Care Physician [place] [facility] [place] [id number] Date(s): 02/10/20 - 03/11/20 [facility] [address] [place] [address]- [facility] Attending Physician: Isaiah Sanchez Admitting Physician: AdmtrIsaiah Referring Physician: Admtr, Isaiah Allergies, Adverse Reactions, Alerts Substance Reaction Severity [...] 08/06/19 15:21:11 EDT, Route to Pharmacy Electronically, [id number], [facility]/pharmacy #[id number] Start Date: 08/06/19 Status: Orderedgabapentin 100 mg [...]
--- OUTSIDE RECORDS SUMMARY | 2022-08-18 13:46 | XMS_ITS | Continuity of Care Document ---
:1945 Author Organization [facility] Address [address] [place] [address]- Care Team Providers Name Role Phone Princess Whitten NP, V Primary Care Physician [id number] Date[facility] 01/31/22 - 03/02/22 [facility] [address] [place] [id number] Allergies, Adverse Reactions, Alerts No Known Allergies [...] 08/06/19 15:21:11 EDT, Route to Pharmacy Electronically, [id number], [facility]/pharmacy #[id number] Start Date: 08/06/19 Status: Orderedgabapentin 100 mg [...]
--- OUTSIDE RECORDS SUMMARY | 2022-08-18 13:46 | XMS_ITS | Continuity of Care Document ---
:1945 Author Organization [facility] Address [address] [place] [address]- Care Team Providers Name Role Phone Princess Whitten NP, V Primary Care Physician [id number] Date(s): 01/[facility] - 02/07/[facility] [address] [place] [address] Attending Physician: Maria C Sagastume NP Admitting Physician: Maria C Sagastume NP Referring Physician: Princess Whitten NP, V Allergies, Adverse Reactions, Alerts No Known Allergies [...] 08/06/19 15:21:11 EDT, Route to Pharmacy Electronically, [id number], [facility]/pharmacy #[id number] Start Date: 08/06/19 Status: Orderedgabapentin 100 mg [...]
--- OUTSIDE RECORDS SUMMARY | 2022-08-18 13:46 | XMS_ITS | Continuity of Care Document ---
:1945 Author Organization [facility] Address [address] [place] [address]- Care Team Providers Name Role Phone Fish SILVER, Princess Escobedo Primary Care Physician Encounter [facility] Date(s): 02/08/22 - 06/08/22 [facility] [address] [place], [place] [address] Attending Physician: Maria C Sagastume NP Admitting Physician: Maria C Sagastume NP Referring Physician: Maria C Sagastume NP Allergies, Adverse Reactions, Alerts No Known Allergies [...] 08/06/19 15:21:11 EDT, Route to Pharmacy Electronically, [id number], [facility]/pharmacy #[id number] Start Date: 08/06/19 Status: Orderedgabapentin 100 mg [...]
--- OUTSIDE RECORDS SUMMARY | 2022-08-18 13:46 | XMS_ITS | Continuity of Care Document ---
:1945 Author Organization [facility] Address [address] [place] [address]- Care Team Providers Name Role Phone Fish SILVER, Princess Escobedo Primary Care Physician En[facility] Date(s): 12/10/20 - 12/17/20 [facility] [address] [place] [id number] Attending Physician: Maria C Sagastume NP Admitting [...] 08/06/19 15:21:11 EDT, Route to Pharmacy Electronically, [id number], [facility]/pharmacy #[id number] Start Date: 08/06/19 Status: Orderedgabapentin 100 mg [...]
--- OUTSIDE RECORDS SUMMARY | 2022-08-18 13:46 | XMS_ITS | Continuity of Care Document ---
:1945 Author Organization [facility] Address [address] [place] [address]- Care Team Providers Name Role Phone Princess Whitten NP, V Primary [id number] - [facility]/11/20 [facility] [address] [place] [address]- [facility] Attending Physician: Shayy Chase NP Admitting Physician: Shayy Chase NP Referring Physician: Shayy Chase NP Allergies, Adverse Reactions, Alerts Substance Reaction Severity [...] 08/06/19 15:21:11 EDT, Route to Pharmacy Electronically, [id number], [facility]/pharmacy #[id number] Start Date: 08/06/19 Status: Orderedgabapentin 100 mg [...]
--- OUTSIDE RECORDS SUMMARY | 2022-08-18 13:46 | XMS_ITS | Continuity of Care Document ---
:1945 Author Organization [facility] Address [address] [place] [id number]- Care Team Providers Name Role Phone Princess Whitten NP, V Primary Care Physician [place] [facility] [place]20 [facility] [address] [place] [id number]- [facility] Attending Physician: Shayy Chase NP Admitting [...] 08/06/19 15:21:11 EDT, Route to Pharmacy Electronically, [id number], [facility]/pharmacy #[id number] Start Date: 08/06/19 Status: Orderedgabapentin 100 mg [...]
--- OUTSIDE RECORDS SUMMARY | 2022-08-18 13:46 | XMS_ITS | Continuity of Care Document ---
:1945 Author Organization [facility] Address [address] [place] [address]- Care Team Providers Name Role Phone Princess Whitten NP, V Primary Care Physician Encounter [facility] [place] [facility] [id number] Date(s): 02/10/20 - 03/11/20 [facility] [address] [place] [address]- [facility] Attending Physician: Isaiah Sanchez Admitting Physician: AdmIsaiah christy Referring Physician: AdmtrIsaiah Allergies, Adverse Reactions, Alerts Substance Reaction Severity [...] 08/06/19 15:21:11 EDT, Route to Pharmacy Electronically, [id number], [facility]/pharmacy #[id number] Start Date: 08/06/19 Status: Orderedgabapentin 100 mg [...]
--- OUTSIDE RECORDS SUMMARY | 2022-08-18 13:46 | XMS_ITS | Continuity of Care Document ---
:1945 Author Organization [facility] Address [address] [place] [phone]- Care Team Providers Name Role Phone Fish SILVER, Princess Escobedo Primary Care Physician [place] [facility] [place]): [place]13[place]22 - 06/12/22 [facility] [address] [place], [place] [address] Attending Physician: Isaiah Sanchez Admitting Physician: Isaiah Sanchez Referring Physician: AdmtrIsaiah Allergies, Adverse Reactions, Alerts No Known Allergies [...] 08/06/19 15:21:11 EDT, Route to Pharmacy Electronically, [id number], [facility]/pharmacy #[id number] Start Date: 08/06/19 Status: Orderedgabapentin 100 mg [...]
--- OUTSIDE RECORDS SUMMARY | 2022-08-18 13:46 | XMS_ITS | Continuity of Care Document ---
:1945 Author Organization [facility] Address [address] [place] [address]- Care Team Providers Name Role Phone Fish SILVER, Princess Escobedo Primary Care Physician Encounter [facility] [place] Date(s): 05/09/22 - 06/08/22 [facility] [address] [place], [place] [address] Attending Physician: Isaiah Sanchez Admitting Physician: Isaiah [...] 08/06/19 15:21:11 EDT, Route to Pharmacy Electronically, [id number], [facility]/pharmacy #[id number] Start Date: 08/06/19 Status: Orderedgabapentin 100 mg [...]
--- OUTSIDE RECORDS SUMMARY | 2022-08-18 13:46 | XMS_ITS | Continuity of Care Document ---
:1945 Author Organization [facility] Address [address] [place] [phone]- Care Team Providers Name Role Phone Fish SILVER, Princess Escobedo Primary Care Physician Encounter [facility] [place] Date(s): 12/10/20 - 01/09/21 [facility] [address] [place] [id number] Attending Physician: Isaiah Sanchez Admitting Physician: Isaiah [...] 08/06/19 15:21:11 EDT, Route to Pharmacy Electronically, [id number], [facility]/pharmacy #[id number] Start Date: 08/06/19 Status: Orderedgabapentin 100 mg [...]
[2022-08-18 13:57] LABS: Hematocrit 34.6 % (42.0-52.0); Hemoglobin 11.5 g/dl (14.0-18.0); Mean Corpuscular HGB Conc 33.2 g/dl (31.0-36.0); Mean Corpuscular Hemoglobin 26.6 pg (27.0-33.0); Mean Corpuscular Volume 80.1 fL (80.0-98.0); Mean Platelet Volume 12.1 fL (9.4-12.4); Platelet Count 109 X10*3/uL (160-400); Red Blood Count 4.32 X10*6/uL (4.60-5.80); Red Cell Distribution Width 14.6 % (11.0-16.0); White Blood Count 14.1 X10*3/uL (4.8-10.8)
[2022-08-18 14:00] LABS: INTERNATIONAL NORM RATIO 1.2 (0.9-1.1); Prothrombin Time 13.3 SEC (10.0-13.1)
[2022-08-18 14:03] LABS: Partial Thromboplastin Time 25.8 SEC (26.0-36.4)
[2022-08-18 14:08] LABS: COVID-19 Test Negative (Negative); IDNOW Serial# 16C4AD1C; Lactic Acid 1.5 mmol/L (0.5-2.0)
[2022-08-18 14:11] LABS: Alanine Aminotransferase 24 U/L (0-40); Albumin Level 3.2 g/dL (3.5-5.0); Alkaline Phosphatase 137 U/L (39-117); Anion Gap 17 (12-20); Aspartate Amino Transferase 27 U/L (5-37); Bilirubin Total 1.2 mg/dL (0.0-1.0); Blood Urea Nitrogen 62 mg/dL (9-16); Calcium 8.1 mg/dL (8.4-10.2); Carbon Dioxide 21 mmol/L (22-29); Chloride 103 mmol/L (96-108); Creatinine Clr Calc Pharmacy 21.5; Estimated Glomerular Filt Rate 22; Glucose Random 272 mg/dL (60-115); Sodium 138 mmol/L (135-145); Total Protein 5.3 g/dL (6.5-8.0)
[2022-08-18] MEDS: cefTRIAXone sodium 1 GM in 0.9 % Sodium Chloride 50 ML IV (14:15)
[2022-08-18 14:17] LABS: B Type Natriuretic Peptide 60 pg/mL (<100); Troponin-I High Sensitivity 25.5 ng/L (<3.5-35.0)
[2022-08-18 14:40] LABS: Neutrophils Percent Manual 71 % (45-73)
[2022-08-18 14:43] LABS: Acanthocytes 3+ (>5) /OIF; Band Neutrophils Percent 24 % (3-5); Lymphocytes Absolute Manual 0.3 X10*3/uL (1.2-4.9); Lymphocytes Percent Manual 2 % (20-40); Monocytes Absolute Manual 0.4 X10*3/uL (0.1-1.2); Monocytes Percent Manual 3 % (2-11); Neutrophils Absolute Manual 13.4 X10*3/uL (2.0-8.3); Platelet Estimate SLIGHTLY DECREASED (NORMAL); RBC Morphology NOTED
[2022-08-18 14:44] LABS: Platelet Morphology Comment NORMAL
[2022-08-18] MEDS: Potassium Chloride/H20 10 MEQ/100 ML PIGGYBACK 100 MEQ IV ×5 (15:16→21:51)
--- NOTE | 2022-08-18 15:22 | PC.NURSE ---
pt appears more alert. eyes open and able to answer questions. denies pain. BP 95/57. Potassium Chloride running.
[2022-08-18] MEDS: 0.9 % Sodium Chloride 1,000 ML 999 ML IV (15:25)
[2022-08-18 16:18] LABS: Influenza A PCR NEGATIVE (Negative); Influenza B PCR NEGATIVE (Negative); Resp Syncy Virus RNA Qual PCR NEGATIVE (Negative); SARS COV2 PCR INHOUSE NEGATIVE (Negative)
--- NOTE | 2022-08-18 17:25 | PC.NURSE ---
pt resting comfortably. A&O x3. BP 102/63. denies pain. was able to void for UA sent to lab
--- NOTE | 2022-08-18 17:57 | P.HPHOSP_ITS ---
History of Present Illness Date of Service: 08/18/22 Chief Complaint: Poor p.o. intake, dizzy, off-balance Patient is Singaporean-speaking, history is obtained with the help of an automotive parts interpreter 76-year-old male with past medical history of diabetes, CAD, history of asthma, HTN, history of GI bleed, poor p.o. intake, nausea vomiting, feeling dizzy and off balance for the past 5 days. Patient reports fever, some chills, did not check his temperature at home but felt febrile, reports no chest pain, has some shortness of breath, cough and sputum production for the past 3 days He denies any abdominal pain but has flank pain on the right that also started about a week ago, specially when he lies down. He reports having nausea vomiting daily for the past 5 days. Denies any diarrhea or constipation. denies any urinary symptoms and no lower extremity edema. Per EMS, patient was found to be hypoxic at 88% on room air under arrival. On arrival to the ED patient was found to be hypotensive with a blood pressure of 89/52, proved to 102/63 at the hour I saw him. He is 98% on 3 L of oxygen. Labs are significant for WBC count of 14.1, hemoglobin of 11.5, hematocrit 34.6, PT of 13.3, INR of 1.2 potassium of 3.0, BUN of 62, creatinine of 2.79, glucose of 272, calcium of 8.1, UA pending, COVID-19 negative, flu panel negative And pelvic CT shows acute cholecystitis, cholelithiasis, right lung lesion adjacent to the major minor fissure which appears slightly more prominent than on previous study of 05/27/2022, Chest CT shows wall thickening in the lower lobes bilaterally with some mild dependent airspace disease infectious versus interstitial. Head CT negative, CT of the neck soft tissue negative for infection involving soft tissues of the neck. But shows circumferential wall thickening of the upper thoracic esophagus Patient started on IV antibiotics and will be admitted for further management Review of Systems Review of Systems: Yes all other systems are reviewed and are negative [facility] Medical History Abdominal aortic aneurysm without rupture Asthma Atherosclerotic cardiovascular disease CAD (coronary artery disease) Diabetes Essential hypertension Gout Hemorrhage of gastrointestinal tract Hypertension Type 2 diabetes mellitus with unspecified complications Surgical History Hernia History of cardiac catheterization History of heart artery stent Social History Household Members: None Housing: Apartment Do you presently have visiting nurse or other home services: Yes Alcohol intake: current Alcohol intake frequency: does not drink Smoked in Last 30 Days: No Second Hand Smoke Exposure: No Use of substances other than those prescribed or required for medical reasons: No Advance Directives: Yes Advance Directives on File: Yes Advance Directives Date on File: 02/15/21 service: No Current occupational status: retired Meds Allergies Allergy/AdvReac Type Severity Reaction Status Date / Time No Known Allergies Allergy Mild NOT Verified 05/26/22 21:32 APPLICABLE Active Medications: Current Medications Pharmacy Consult (Consult Rx Perform Med Rec) 1 each MISCELLANE ONCE PRN PRN Reason: Consult order Home Medications Medication Instructions Recorded Confirmed Last Taken Type albuterol sulfate 2.5 mg/3 mL 1 vial inhalation QID PRN Wheezing 02/15/21 03/15/21 1 Day Ago History (0.083 %) solution for nebulization ~02/14/21 allopurinol 300 mg tablet 1 tab PO DAILY 02/15/21 03/15/21 1 Day Ago History ~02/14/21 cholecalciferol (vitamin D3) 50 1 cap PO DAILY 02/15/21 03/15/21 1 Day Ago History mcg (2,000 unit) capsule ~02/14/21 loratadine 10 mg tablet 1 tab PO DAILY PRN Allergic 02/15/21 03/15/21 1 Day Ago History Symptoms ~02/14/21 losartan 50 mg tablet 1 tab PO DAILY 02/15/21 03/15/21 1 Day Ago History ~02/14/21 amlodipine 2.5 mg tablet 1 tab PO QPM 08/18/22 Unknown History atenolol 50 mg tablet 1 tab PO QAM 08/18/22 Unknown History atorvastatin 80 mg tablet 1 tab PO BEDTIME 08/18/22 Unknown History gabapentin 100 mg capsule 1 cap PO TID 08/18/22 Unknown History tamsulosin 0.4 mg capsule 1 cap PO QPM 08/18/22 Unknown History trazodone 50 mg tablet 1 tab PO BEDTIME 08/18/22 Unknown History Physical Exam Vital Signs and Narrative: Vital Signs: Last Vital Signs Temp 98.9 F 08/18/22 15:14 Pulse 84 08/18/22 17:22 Resp 18 08/18/22 17:22 BP 102/63 08/18/22 17:22 Pulse Ox 98 08/18/22 17:22 O2 Del Method 08/18/22 17:22 O2 Flow Rate 3 08/18/22 17:22 Oxygen Flow Rate 3 08/18/22 13:11 BMI result Body Mass Index 22.4 Const: Other: oriented to self and place, but not to date , able to give history appropriately General: cooperative and no acute distress Eyes: General: appearance normal, both eyes and all related structures Pupils: Equal, round and reactive pupils present Chest: Other: crackles bilaterally Resp: Effort & Inspection: normal respiratory effort Auscultation: clear to auscultation bilaterally Cardio: Rate: regular rate Rhythm: regular rhythm GI: Other: abd soft, tender on the RUQ, no rebound or guarding Palpation (GI): Soft to palpation Auscultation: normal bowel sounds Skin: General skin exam: no rashes or lesions noted Neuro: Cranial nerves: Yes Equal, round and reactive pupils present Cognition (Neuro): normal cognition Extrem: General: Yes normal to inspection and Yes no pedal edema Results Labs CBC and Chem 7: 08/18/22 13:45 08/18/22 13:45 Labs: Laboratory Results - last 24 hr 08/18/22 08/18/22 08/18/22 13:45 13:45 13:45 MCV 80.1 MCH 26.6 L MCHC 33.2 RDW 14.6 Plt Count 109 L D MPV 12.1 Immature Gran % (Auto) Cancelled Neut % (Auto) Cancelled Lymph % (Auto) Cancelled Ware % (Auto) Cancelled Eos % (Auto) Cancelled Baso % (Auto) Cancelled Lymph # (Auto) Cancelled Ware # (Auto) Cancelled Eos # (Auto) Cancelled Baso # (Auto) Cancelled Abs Immat Gran (auto) Cancelled Absolute Neuts (auto) Cancelled Absolute Nucleated RBC 0.000 Nucleated RBC % (auto) 0.0 Neutrophils % (Manual) 71 Band Neutrophils % 24 H Lymphocytes % (Manual) 2 L Monocytes % (Manual) 3 Abs Neuts (Manual) 13.4 H Lymphocytes # (Manual) 0.3 L Monocytes # (Manual) 0.4 Platelet Estimate SLIGHTLY DECREASED Plt Morphology Comment NORMAL RBC Morphology NOTED Acanthocytes (Spur) 3+ (>5) PT 13.3 H INR 1.2 H APTT 25.8 L Anion Gap 17 Estim Creat Clear Calc 21.5 Estimated GFR 22 Random Glucose 272 H Lactic Acid Calcium 8.1 L D Total Bilirubin 1.2 H AST 27 D ALT 24 Alkaline Phosphatase 137 H Troponin I High Sens B-Natriuretic Peptide Total Protein 5.3 L Albumin 3.2 L COVID-19 (ERENDIRA) COVID-19 Clin Com Influenza Type A (PCR) Influenza Type B (PCR) RSV RNA Qual (PCR) SARS-CoV-2 RNA (RT-PCR) 08/18/22 08/18/22 08/18/22 13:45 13:45 13:45 MCV MCH MCHC RDW Plt Count MPV Immature Gran % (Auto) Neut % (Auto) Lymph % (Auto) Ware % (Auto) Eos % (Auto) Baso % (Auto) Lymph # (Auto) Ware # (Auto) Eos # (Auto) Baso # (Auto) Abs Immat Gran (auto) Absolute Neuts (auto) Absolute Nucleated RBC Nucleated RBC % (auto) Neutrophils % (Manual) Band Neutrophils % Lymphocytes % (Manual) Monocytes % (Manual) Abs Neuts (Manual) Lymphocytes # (Manual) Monocytes # (Manual) Platelet Estimate Plt Morphology Comment RBC Morphology Acanthocytes (Spur) PT INR APTT Anion Gap Estim Creat Clear Calc Estimated GFR Random Glucose Lactic Acid 1.5 Calcium Total Bilirubin AST ALT Alkaline Phosphatase Troponin I High Sens 25.5 D B-Natriuretic Peptide Total Protein Albumin COVID-19 (ERENDIRA) Negative COVID-19 Clin Com See Note Influenza Type A (PCR) Influenza Type B (PCR) RSV RNA Qual (PCR) SARS-CoV-2 RNA (RT-PCR) 08/18/22 08/18/22 13:45 15:36 MCV MCH MCHC RDW Plt Count MPV Immature Gran % (Auto) Neut % (Auto) Lymph % (Auto) Ware % (Auto) Eos % (Auto) Baso % (Auto) Lymph # (Auto) Ware # (Auto) Eos # (Auto) Baso # (Auto) Abs Immat Gran (auto) Absolute Neuts (auto) Absolute Nucleated RBC Nucleated RBC % (auto) Neutrophils % (Manual) Band Neutrophils % Lymphocytes % (Manual) Monocytes % (Manual) Abs Neuts (Manual) Lymphocytes # (Manual) Monocytes # (Manual) Platelet Estimate Plt Morphology Comment RBC Morphology Acanthocytes (Spur) PT INR APTT Anion Gap Estim Creat Clear Calc Estimated GFR Random Glucose Lactic Acid Calcium Total Bilirubin AST ALT Alkaline Phosphatase Troponin I High Sens B-Natriuretic Peptide 60 Total Protein Albumin COVID-19 (ERENDIRA) COVID-19 Clin Com Influenza Type A (PCR) NEGATIVE Influenza Type B (PCR) NEGATIVE RSV RNA Qual (PCR) NEGATIVE SARS-CoV-2 RNA (RT-PCR) NEGATIVE Imaging Radiologist's Impressions: Impressions Chest X-Ray 08/18/22 14:30 IMPRESSION: Mild linear atelectasis/scarring without definitive infiltrate. Abdomen/Pelvis CT 08/18/22 15:19 IMPRESSION: Acute cholecystitis. Cholelithiasis. Right lung lesion adjacent to the major minor fissure which appears slightly more prominent than on previous study of May 27, 2022. According to the UPDATED 2017 Fleischner Society recommendations, the advised follow-up imaging for a single solid nodule measuring 8 mm or greater is: Consider CT, PET/CT, or tissue sampling at 3 months. Bilateral lower lobe interstitial disease. Chest CT 08/18/22 15:19 IMPRESSION: Acute cholecystitis. Cholelithiasis. Right lung lesion adjacent to the major minor fissure which appears slightly more prominent than on previous study of May 27, 2022. According to the UPDATED 2017 Fleischner Society recommendations, the advised follow-up imaging for a single solid nodule measuring 8 mm or greater is: Consider CT, PET/CT, or tissue sampling at 3 months. Bilateral lower lobe interstitial disease. Head CT 08/18/22 15:19 IMPRESSION: Negative acute noncontrast CT of the brain. Soft Tissue Neck CT 08/18/22 15:19 IMPRESSION: 1. Somewhat limited evaluation of the soft tissues of the neck secondary to motion degradation and in the absence of intravenous contrast. No imaging findings of infection involving the soft tissues of the neck. 2. Circumferential wall thickening of the upper thoracic esophagus. Correlate clinically for esophagitis. Assessment and Plan (1) Acute cholecystitis: Status: Acute (2) Sepsis: Status: Acute (3) Acute respiratory failure with hypoxia: Status: Acute (4) Community acquired pneumonia: Status: Acute (5) Esophagitis: Status: Acute (6) Hypokalemia: Status: Acute (7) FLY (acute kidney injury): Status: Acute (8) Lung nodule: Status: Acute Plan 76-year-old male with past medical history of diabetes, hypertension, history of abdominal aortic aneurysm without rupture, CAD, asthma presents to the hospital with complaints of nausea vomiting, poor p.o. intake, found to have multiple acute issues # sepsis - likely secondary to cholecystitis as well as pneumonia - tachypneic, leukocytosis, has mild hypotension - lactic acid normal - Started on IV antibiotics - IV fluids - follow cultures # acute cholecystitis - seen on CT abdomen - will order abdomen ultrasound - IV antibiotics - general surgery consulted - keep NPO after midnight # community-acquired pneumonia - evidence of pneumonia on chest CT - Patient has cough, sputum production, reports dyspnea - will treat with IV antibiotics - follow cultures # acute hypoxic respiratory failure - found to be hypoxic at 88% at home - likely secondary to community-acquired pneumonia - O2 as required - titrate O2 off as tolerated # FLY - secondary to dehydration - which she with IV fluids - follow BMP # hypokalemia - secondary to vomiting - repleted - follow BMP # esophagitis - seen on CT scan - patient also complaining of nausea vomiting - history of GI bleed - will treat with IV pantoprazole - GI consulted # lung nodule - seen on chest CT which appears to have grown larger as compared to May 2022 - patient will require follow-up outpatient for possible sampling - can consider inpatient workup as well if he stays in the hospital appeared of time DVT prophylaxis: SCDs in ants patient possible surgical procedure by surgery in a.m.- if not please start heparin subQ Pt will require a minimum 2 night hospital stay for IV antibiotics, and surgical intervention Quality Stroke Does the patient have a stroke diagnosis?: No VTE Prior VTE?: No VTE Risk Level:: Medical - moderate - high VTE Device Contraindication: Treatment Not Indicated VTE Drug Contraindication: N/A - Med Ordered
[2022-08-18 18:03] LABS: Appearance Urine Cloudy; Color Urine Dark Yellow; Glucose Urine UA Negative (Negative); Leukocyte Esterase Urine Negative (Negative); Nitrite Urine Negative (Negative); Specific Gravity - Urine 1.025 (1.005-1.025); UMIC TRIGGER UACC YES; Urine Blood Negative (Negative); Urine Ketones Trace mg/dL (Negative); Urine Protein 100 (2+) mg/dL (Neg-Trace)
[2022-08-18] MEDS: Pantoprazole Sodium 40 MG/10 ML VIAL IVPUSH (18:16)
[2022-08-18] MEDS: metroNIDAZOLE/NS 500 MG/100 ML PIGGYBACK 100 MG IV (18:16)
[2022-08-18 18:24] LABS: Bacteria Urine None Seen (None Seen); Granular Casts Urine Present; Hyaline Casts Urine >20 /LPF (0-2); RBC Urine 0-2 /HPF (0-2); Renal Epithelial Cells Urine Present; Transitional Epi Cells Urine Present; WBC Urine 0-5 /HPF (0-5)
[2022-08-18] MEDS: Lactated Ringers 1,000 ML 100 ML IVCONT (18:28)
--- NOTE | 2022-08-18 18:30 | PC.NURSE ---
pt resting comfortably. BP 102/64. other VS WNL. LR, potassium chloride and metronidazole running. pt denies pain
--- NOTE | 2022-08-18 19:11 | PHA.MEDREC ---
MED REC COMPLETE, BASED ON PHARMACY AND WHAT DAUGHTER COULD FIND. DAUGHTER WILL CALL US WHEN SHE CAN GET TO PATIENTS APARTMENT Pharmacy Consult ? Medication Reconciliation Pharmacy has completed the medication reconciliation.
--- NOTE | 2022-08-18 21:05 | PC.NURSE ---
room moved patient upset that their tv in room 3 was not working, pt moved to room 4 for patient request for tv
[2022-08-18 21:33] LABS: Glucose, Whole Blood 213 mg/dL (60-115)
[2022-08-18] MEDS: Insulin Lispro 100 UNIT/ML 3 ML VIAL SUBCUT (21:51)
--- NOTE | 2022-08-18 21:54 | PC.NURSE ---
pt medicated per order
--- NOTE | 2022-08-18 22:28 | PC.NURSE ---
patient a&ox3, ivf running per order, pt medicated per order, vss, denies pain/discomfort, call florian within reach, will continue to monitor
[2022-08-19] VITALS (9 sets, daily range): BP systolic 102–148; BP diastolic 50–79; PULSE 78–123; RESP 17–31; TEMP 36.6–38.3; O2SAT 92–98
[2022-08-19] MEDS: 0.9 % Sodium Chloride Flush 3 ML SYRINGE IVFLUSH
[2022-08-19] MEDS: metroNIDAZOLE/NS 500 MG/100 ML PIGGYBACK 100 MG IV ×3 (02:07→16:57)
[2022-08-19] MEDS: Acetaminophen 325 MG TABLET 650 MG PO ×2 (02:34→07:20)
--- NOTE | 2022-08-19 02:46 | PC.NURSE ---
PT SOB, O2 90%/RA, P 123, RR 31, T 100.3, BP 148/79, MD Rogers notified, new order for duonebs, respiratory administered, PT VS now R 22, O2 98% 3/NC, APAP given for temp. PT now resting quietly, PT denies pain, IV running as ordered.
[2022-08-19] MEDS: Lactated Ringers 1,000 ML 100 ML IVCONT ×2 (03:47→16:59)
[2022-08-19] MEDS: Pantoprazole Sodium 40 MG/10 ML VIAL IVPUSH (05:33)
[2022-08-19 06:41] LABS: Hematocrit 32.7 % (42.0-52.0); Hemoglobin 10.5 g/dl (14.0-18.0); Mean Corpuscular HGB Conc 32.1 g/dl (31.0-36.0); Mean Corpuscular Hemoglobin 26.2 pg (27.0-33.0); Mean Corpuscular Volume 81.5 fL (80.0-98.0); Red Blood Count 4.01 X10*6/uL (4.60-5.80); Red Cell Distribution Width 14.8 % (11.0-16.0); White Blood Count 5.4 X10*3/uL (4.8-10.8)
[2022-08-19 07:12] LABS: Anion Gap 16 (12-20); Blood Urea Nitrogen 49 mg/dL (9-16); Calcium 7.7 mg/dL (8.4-10.2); Carbon Dioxide 18 mmol/L (22-29); Chloride 111 mmol/L (96-108); Creatinine Clr Calc Pharmacy 35.4; Estimated Glomerular Filt Rate 39; Glucose Random 118 mg/dL (60-115); Potassium 3.4 mmol/L (3.3-5.1); Sodium 142 mmol/L (135-145)
[2022-08-19 07:21] LABS: Band Neutrophils Percent 20 % (3-5); Lymphocytes Absolute Manual 0.2 X10*3/uL (1.2-4.9); Lymphocytes Percent Manual 3 % (20-40); Metamyelocytes Absolute 0.1 X10*3/uL; Metamyelocytes Percent 1 %; Monocytes Absolute Manual 0.1 X10*3/uL (0.1-1.2); Monocytes Percent Manual 1 % (2-11); Neutrophils Absolute Manual 5.1 X10*3/uL (2.0-8.3); Neutrophils Percent Manual 75 % (45-73)
[2022-08-19 07:24] LABS: Burr Cells 2+ (3-5) /OIF; Platelet Estimate DECREASED (NORMAL); Platelet Morphology Comment NORMAL; Polychromasia 1+ (0-2) /OIF; RBC Morphology NOTED
[2022-08-19 07:26] LABS: Acanthocytes 1+ (0-2) /OIF
[2022-08-19 07:27] LABS: Mean Platelet Volume 12.4 fL (9.4-12.4); Platelet Count 75 X10*3/uL (160-400)
[2022-08-19 07:51] LABS: Glucose, Whole Blood 129 mg/dL (60-115)
--- NOTE | 2022-08-19 08:18 | PM.GICN ---
History of Present Illness Data of Consult Service Date: 08/19/22 Requesting physician: Jenna Ellison Primary Care Provider: Unknown Physician HPI Reason for consult: Esophagitis Chief Complaint: Poor p.o. intake, dizzy, off-balance Patient is [place]ican-speaking, history is obtained with the help of an mailing manager ?76 YM with diabetes, CAD, history of asthma, HTN, history of GI bleed, poor p.o. intake, nausea vomiting, feeling dizzy and off balance for the past 5 days.? Patient reported fever, some chills, did not check his temperature at home but felt febrile, reports no chest pain, has some shortness of breath, cough and sputum production for the past 3 days He denies any abdominal pain but has flank pain on the right that also started about a week ago, specially when he lies down.? He reports having nausea vomiting daily for the past 5 days.? Denies any diarrhea or constipation.? denies any urinary symptoms and no lower extremity edema.? Per EMS, patient was found to be hypoxic at 88% on room air under arrival. On arrival to the ED patient was found to be hypotensive with a blood pressure of 89/52, proved to 102/63 at the hour I saw him.? He is 98% on 3 L of oxygen. Labs are significant for WBC count of 14.1, hemoglobin of 11.5, hematocrit 34.6, PT of 13.3, INR of 1.2 potassium of 3.0, BUN of 62, creatinine of 2.79, glucose of 272, calcium of 8.1, UA pending, COVID-19 negative, flu panel negative CHEST ABDOMINAL AND PELVIC CT SCAN SHOWED: Acute cholecystitis. ? Cholelithiasis. ? Right lung lesion adjacent to the major minor fissure which appears slightly more prominent than on previous study of May 27, 2022. According to the UPDATED 2017 Fleischner Society recommendations, the advised follow-up imaging for a single solid nodule measuring 8 mm or greater is:? Consider CT, PET/CT, or tissue sampling at 3 months. ? Bilateral lower lobe interstitial disease. Patient started on IV antibiotics and WAS admitted for further management Review of Systems Constitutional: Constitutional: Denies chills, Reports fatigue, Denies fever(s), Reports malaise and Reports weakness Cardiovascular: Cardiovascular: Denies chest pain, Reports dyspnea and Reports dyspnea on exertion Respiratory: Respiratory: Denies cough, Reports dyspnea and Reports dyspnea on exertion Gastrointestinal: Gastrointestinal: Denies hematochezia and Denies change in bowel habits Genitourinary: Genitourinary: Denies hematuria and Denies difficulty urinating Musculoskeletal: Musculoskeletal: Denies back pain and Denies limited range of motion Neurologic: Denies focal weakness, Denies convulsions and Reports weakness Psychiatric: Psychiatric: Denies depression and Denies mood swings Endocrine: Endocrine: Reports fatigue PMF Past Medical History Medical History Abdominal aortic aneurysm without rupture Acute cholecystitis Acute cholecystitis Asthma Atherosclerotic cardiovascular disease CAD (coronary artery disease) Diabetes Esophagitis Essential hypertension Gout Hemorrhage of gastrointestinal tract Hypertension Lung nodule Type 2 diabetes mellitus with unspecified complications Surgical History Surgical History Hernia History of cardiac catheterization History of heart artery stent Social History Social History Household Members: None Household Members Other:: 1 Housing: Apartment Do you presently have visiting nurse or other home services: No Alcohol intake: current Alcohol intake frequency: does not drink Patient Tobacco Use Status: Never used Tobacco Second Hand Smoke Exposure: No Use of substances other than those prescribed or required for medical reasons: No Are you DNR?: No Advance Directives: Yes Advance Directives on File: Yes Advance Directives Date on File: 02/15/21 service: No Current occupational status: retired Meds Allergies Allergy/AdvReac Type Severity Reaction Status Date / Time No Known Allergies Allergy Mild NOT Verified 05/26/22 21:32 APPLICABLE Active Medications: Current Medications Acetaminophen (Acetaminophen 325 Mg Tablet) 650 mg PO Q6H PRN PRN Reason: Pain, Mild (Pain Scale 1-3) Last Admin: 08/19/22 02:34 Dose: 650 mg Albuterol/Ipratropium (Albuterol/Iprat 2.5/0.5mg 3 Ml Ampul.Neb) 3 ml INHALE RQ4H PRN PRN Reason: Wheezing Dextrose (Dextrose 50 % 25 Gm/50 Ml Syringe) 25 gm IVPUSH Q15M PRN; Protocol PRN Reason: per Hypoglycemia Standing Ord. Docusate Sodium (Docusate Sodium 100 Mg Capsule) 100 mg PO DAILY PRN PRN Reason: Constipation Glucose (Glucose Gel 15 Gm Gel..Gram.) 15 gm PO Q15M PRN; Protocol PRN Reason: per Hypoglycemia Standing Ord. Metronidazole (Flagyl) 500 mg in 100 mls @ 100 mls/hr IV Q8H [facility] Last Infusion: 08/19/22 03:36 Dose: Infused Ceftriaxone Sodium 1 gm/ (Sodium Chloride) 50 mls @ 100 mls/hr IV Q24H [facility] Lactated Ringer's (Lr) 1,000 mls @ 100 mls/hr IVCONT .Q10H [facility] Last Admin: 08/19/22 03:47 Dose: 100 mls/hr Insulin Human Lispro (Insulin Lispro 100 Unit/Ml 3 Ml Vial) 0 unit SUBCUT QIDACHS [facility]; Protocol Last Admin: 08/19/22 07:23 Dose: Not Given Ondansetron HCl (Ondansetron Hcl 4 Mg/2 Ml Vial) 4 mg IVPUSH Q8H PRN PRN Reason: Nausea and Vomiting Pantoprazole Sodium (Pantoprazole Sodium 40 Mg/10 Ml Vial) 40 mg IVPUSH BID@0630,1630 [facility] Last Admin: 08/19/22 05:33 Dose: 40 mg Pharmacy Consult (Consult Rx Perform Med Rec) 1 each MISCELLANE ONCE PRN PRN Reason: Consult order Sodium Chloride (0.9 % Sodium Chloride Flush 3 Ml Syringe) 3 ml IVFLUSH QSHIFT [facility] Last Admin: 08/19/22 07:23 Dose: Not Given Home Medications Medication Instructions Recorded Confirmed Last Taken Type albuterol sulfate 2.5 mg/3 mL 1 vial inhalation QID PRN Wheezing 02/15/21 08/18/22 1 Day Ago History (0.083 %) solution for nebulization ~02/14/21 allopurinol 300 mg tablet 1 tab PO DAILY 02/15/21 08/18/22 1 Day Ago History ~02/14/21 cholecalciferol (vitamin D3) 50 1 cap PO DAILY 02/15/21 08/18/22 1 Day Ago History mcg (2,000 unit) capsule ~02/14/21 loratadine 10 mg tablet 1 tab PO DAILY PRN Allergic 02/15/21 08/18/22 1 Day Ago History Symptoms ~02/14/21 losartan 50 mg tablet 1 tab PO DAILY 02/15/21 08/18/22 1 Day Ago History ~02/14/21 amlodipine 2.5 mg tablet 1 tab PO QPM 08/18/22 08/18/22 Unknown History atenolol 50 mg tablet 1 tab PO DAILY 08/18/22 08/18/22 Unknown History atorvastatin 80 mg tablet 1 tab PO BEDTIME 08/18/22 08/18/22 Unknown History gabapentin 100 mg capsule 1 cap PO TID 08/18/22 08/18/22 Unknown History tamsulosin 0.4 mg capsule 1 cap PO QPM 08/18/22 08/18/22 Unknown History trazodone 50 mg tablet 1 tab PO BEDTIME 08/18/22 08/18/22 Unknown History Physical Exam Vital Signs: Vital Signs: Last Vital Signs Temp 100.9 F H 08/19/22 05:35 Pulse 116 H 08/19/22 03:20 Resp 20 08/19/22 03:20 BP 102/50 L 08/19/22 03:20 Pulse Ox 97 08/19/22 03:20 O2 Del Method 08/19/22 03:20 O2 Flow Rate 3.0 08/19/22 03:20 Oxygen Flow Rate 3 08/18/22 13:11 BMI result Body Mass Index 22.4 Const: General: healthy appearing and no acute distress Nutritional Appearance: average body habitus Orientation/consciousness: patient oriented x3 Limitations: language barrier HEENT: Head: Yes normal to inspection Ears: hearing grossly normal bilaterally Mouth: Normal oral and palatal mucosa present Eyes: Sclerae: sclerae normal Pupils: Equal, round and reactive pupils present Neck: Neck: Yes normal visual inspection Chest: Chest palpation & inspection: normal inspection of the chest Resp: Effort & Inspection: normal respiratory effort Auscultation: clear to auscultation bilaterally Cardio: Palpation: normal PMI Rate: regular rate Rhythm: regular rhythm Heart sounds: S1 normal heart sound present, S2 normal heart sound present and no murmurs GI: Palpation (GI): Soft to palpation, nontender and No hepatosplenomegaly present Auscultation: normal bowel sounds Rectal Exam - Male: Yes deferred Skin: General skin exam: no rashes or lesions noted Neuro: General: patient oriented x3, gait normal and moves all extremities Cranial nerves: Yes Equal, round and reactive pupils present Psych: Appearance: grossly normal Mental Status: mental status grossly normal Results Labs CBC & Chem 7: 08/21/22 05:34 08/21/22 05:34 Labs: Short CBC 08/18/22 08/19/22 Range/Units 13:45 05:38 WBC 14.1 H 5.4 (4.8-10.8) X10*3/uL Hgb 11.5 L 10.5 L (14.0-18.0) g/dl Hct 34.6 L 32.7 L (42.0-52.0) % Plt Count 109 L D 75 L D (160-400) X10*3/uL BMP 08/18/22 08/19/22 13:45 05:38 Sodium 138 142 Potassium 3.0 L D 3.4 Chloride 103 111 H Carbon Dioxide 21 L 18 L BUN 62 H D 49 H Creatinine 2.79 H 1.70 H Calcium 8.1 L D 7.7 L Liver Function 08/18/22 Range/Units 13:45 Total Bilirubin 1.2 H (0.0-1.0) mg/dL AST 27 D (5-37) U/L ALT 24 (0-40) U/L Alkaline Phosphatase 137 H (39-117) U/L Albumin 3.2 L (3.5-5.0) g/dL Urine 08/18/22 Range/Units 17:24 Urine Color Dark Yellow Urine Appearance Cloudy Urine pH 5.0 (5.0-9.0) Ur Specific [place] 1.025 (1.005-1.025) Urine Protein 100 (2+) H (Neg-Trace) mg/dL Urine Glucose (UA) Negative (Negative) mg/dL Assessment and Plan (1) Hemorrhage of gastrointestinal tract: Status: Acute (2) Esophagitis: Status: Acute Plan 76 YM with diabetes, CAD, history of asthma, HTN, history of GI bleed, poor p.o. intake, nausea vomiting, feeling dizzy and off balance for the past 5 days.? Patient reported fever, some chills, did not check his temperature at home but felt febrile, reports no chest pain, has some shortness of breath, cough and sputum production for the past 3 days He denies any abdominal pain but has flank pain on the right that also started about a week ago, specially when he lies down.? He reports having nausea vomiting daily for the past [address] SCAN SHOWED: 1.? Somewhat limited evaluation of the soft tissues of the neck secondary to motion degradation and in the absence of intravenous contrast. No imaging findings of infection involving the soft tissues of the neck. ?2.? Circumferential wall thickening of the upper thoracic esophagus. Correlate clinically for esophagitis. RECOMMENDATIONS: Pt will be scheduled for an EGD as outpatient for further evaluation of esophagus - once he has been treated for pneumonia Procedures Date of Service Date of Service: 08/19/22
[2022-08-19 08:49] LABS: Glucose, Whole Blood 162 mg/dL (60-115)
--- NOTE | 2022-08-19 09:21 | MHC.CM.PN ---
IMM DELIVERED CM SPOKE WITH DAUGHTER REYNA OVER THE PHONE PER PT REQUEST (KAZAKH SPEAKING). PT LIVES ALONE IN AN APARTMENT, HAS FOOD ORDER EXPEDITER HOURS BUT UNSURE OF HOW MANY PER WEEK. PT USES CANE AT TIMES AND HAS A NEBULIZER. +HCP ON FILE, NO COVID [facility] PER DAUGHTER. PCP DR. VALLECILLO AT [facility]. DP: HOME WITH RESUMPTION OF FOOD ORDER EXPEDITER SERVICES, PT/DAUGHTER OPEN TO [facility] REFERRAL IF INDICATED. NO PREFERENCE. REFERRAL SENT TO [facility], PENDING [facility] AUTH ON DC. DAUGHTER WILL TRANSPORT HOME. CM WILL CONTINUE TO FOLLOW.
[2022-08-19] MEDS: Insulin Lispro 100 UNIT/ML 3 ML VIAL SUBCUT ×3 (09:24→20:50)
[2022-08-19 11:49] LABS: Glucose, Whole Blood 262 mg/dL (60-115)
--- NOTE | 2022-08-19 12:35 | P.PNIM_ITS ---
Subjective Subjective Date of Service: 08/19/22 Interval History: seen and examined this AM spoken with in turkmen and with the help of turkmen speaking FASHION STYLIST on the floor pt reports RUQ pain worsened with eating at home reprots a cough with white phelgm, denies cp; reports difficultly breathing but when questioned further, states difficult to take a deep breath due to abodminal pain Review of Systems negative except HPI Physical Exam Vital Signs: Vital Signs: Last Vital Signs Temp 98.1 F 08/19/22 11:24 Pulse 91 08/19/22 11:24 Resp 18 08/19/22 11:24 BP 115/66 08/19/22 11:24 Pulse Ox 92 08/19/22 11:24 O2 Del Method 08/19/22 11:24 O2 Flow Rate 3.0 08/19/22 03:20 Oxygen Flow Rate 3 08/18/22 13:11 BMI result Body Mass Index 22.4 Const: Other: General - no acute distress, appears comfortable Cardiovascular - regular rate and rhythm, S1-S2 Lungs - normal respiratory effort, clear to auscultation bilaterally, no wheezing Abdomen - RUQ TTP without rebound Extremities - no edema bilaterally Neuro - awake and alert, no focal deficits Objective Data Active Medications Acetaminophen (Acetaminophen 325 Mg Tablet) 650 mg PO Q6H PRN PRN Reason: Pain, Mild (Pain Scale 1-3) Last Admin: 08/19/22 02:34 Dose: 650 mg Documented By: MORRINWinter Albuterol/Ipratropium (Albuterol/Iprat 2.5/0.5mg 3 Ml Ampul.Neb) 3 ml INHALE RQ4H PRN PRN Reason: Wheezing Dextrose (Dextrose 50 % 25 Gm/50 Ml Syringe) 25 gm IVPUSH Q15M PRN; Protocol PRN Reason: per Hypoglycemia Standing Ord. Docusate Sodium (Docusate Sodium 100 Mg Capsule) 100 mg PO DAILY PRN PRN Reason: Constipation Glucose (Glucose Gel 15 Gm Gel..Gram.) 15 gm PO Q15M PRN; Protocol PRN Reason: per Hypoglycemia Standing Ord. Metronidazole (Flagyl) 500 mg in 100 mls @ 100 mls/hr IV Q8H FLAVIO Last Infusion: 08/19/22 10:37 Dose: 100 mls/hr Documented By: LETICIA Ceftriaxone Sodium 1 gm/ (Sodium Chloride) 50 mls @ 100 mls/hr IV Q24H [facility] Lactated Ringer's (Lr) 1,000 mls @ 100 mls/hr IVCONT .Q10H [facility] Last Admin: 08/19/22 03:47 Dose: 100 mls/hr Documented By: JUANA Insulin Human Lispro (Insulin Lispro 100 Unit/Ml 3 Ml Vial) 0 unit SUBCUT QIDACHS [facility]; Protocol Last Admin: 08/19/22 09:24 Dose: 2 unit Documented By: LETICIA Ondansetron HCl (Ondansetron Hcl 4 Mg/2 Ml Vial) 4 mg IVPUSH Q8H PRN PRN Reason: Nausea and Vomiting Pantoprazole Sodium (Pantoprazole Sodium 40 Mg/10 Ml Vial) 40 mg IVPUSH BID@06 30,1630 [facility] Last Admin: 08/19/22 05:33 Dose: 40 mg Documented By: JUANA Pharmacy Consult (Consult Rx Perform Med Rec) 1 each MISCELLANE ONCE PRN PRN Reason: Consult order Sodium Chloride (0.9 % Sodium Chloride Flush 3 Ml Syringe) 3 ml IVFLUSH QSHIFT [facility] Last Admin: 08/19/22 07:23 Dose: Not Given Documented By: HENRY Non-Admin Reason: Patient Asleep Labs CBC & Chem 7: 08/19/22 05:38 08/19/22 05:38 Labs: Laboratory Results - last 24 hr 08/18/22 08/18/22 08/18/22 13:45 13:45 13:45 MCV 80.1 MCH 26.6 L MCHC 33.2 RDW 14.6 Plt Count 109 L D MPV 12.1 Immature Gran % (Auto) Cancelled Neut % (Auto) Cancelled Lymph % (Auto) Cancelled [place] % (Auto) Cancelled Eos % (Auto) Cancelled Baso % (Auto) Cancelled Lymph # (Auto) Cancelled [place] # (Auto) Cancelled Eos # (Auto) Cancelled Baso # (Auto) Cancelled Abs Immat Gran (auto) Cancelled Absolute Neuts (auto) Cancelled Absolute Nucleated RBC 0.000 Nucleated RBC % (auto) 0.0 Neutrophils % (Manual) 71 Band Neutrophils % 24 H Lymphocytes % (Manual) 2 L Monocytes % (Manual) 3 Metamyelocytes % Abs Neuts (Manual) 13.4 H Lymphocytes # (Manual) 0.3 L Monocytes # (Manual) 0.4 Metamyelocytes # Platelet Estimate SLIGHTLY DECREASED Plt Morphology Comment NORMAL RBC Morphology NOTED Polychromasia [place] Cells Acanthocytes (Spur) 3+ (>5) PT 13.3 H INR 1.2 H APTT 25.8 L Anion Gap 17 Estim Creat Clear Calc 21.5 Estimated GFR 22 POC Glucose Random Glucose 272 H Lactic Acid Calcium 8.1 L D Total Bilirubin 1.2 H AST 27 D ALT 24 Alkaline Phosphatase 137 H Troponin I High Sens B-Natriuretic Peptide Total Protein 5.3 L Albumin 3.2 L Urine Color Urine Appearance Urine pH Ur Specific [place] Urine Protein Urine Glucose (UA) Urine Ketones Urine Blood Urine Nitrite Ur Leukocyte Esterase Urine RBC Urine WBC Ur Squamous Epith Cells Ur Transition Epith Cell Ur Renal Epithelial Cell Urine Bacteria Hyaline Casts Granular Casts COVID-19 ([facility]) COVID-19 Clin Com Influenza Type A (PCR) Influenza Type B (PCR) RSV RNA Qual (PCR) SARS-CoV-2 RNA (RT-PCR) 08/18/22 08/18/22 08/18/22 13:45 13:45 13:45 MCV MCH MCHC RDW Plt Count MPV Immature Gran % (Auto) Neut % (Auto) Lymph % (Auto) [place] % (Auto) Eos % (Auto) Baso % (Auto) Lymph # (Auto) [place] # (Auto) Eos # (Auto) Baso # (Auto) Abs Immat Gran (auto) Absolute Neuts (auto) Absolute Nucleated RBC Nucleated RBC % (auto) Neutrophils % (Manual) Band Neutrophils % Lymphocytes % (Manual) Monocytes % (Manual) Metamyelocytes % Abs Neuts (Manual) Lymphocytes # (Manual) Monocytes # (Manual) Metamyelocytes # Platelet Estimate Plt Morphology Comment RBC Morphology Polychromasia [place] Cells Acanthocytes (Spur) PT INR APTT Anion Gap Estim Creat Clear Calc Estimated GFR POC Glucose Random Glucose Lactic Acid 1.5 Calcium Total Bilirubin AST ALT Alkaline Phosphatase Troponin I High Sens 25.5 D B-Natriuretic Peptide Total Protein Albumin Urine Color Urine Appearance Urine pH Ur Specific [place] Urine Protein Urine Glucose (UA) Urine Ketones Urine Blood Urine Nitrite Ur Leukocyte Esterase Urine RBC Urine WBC Ur Squamous Epith Cells Ur Transition Epith Cell Ur Renal Epithelial Cell Urine Bacteria Hyaline Casts Granular Casts COVID-19 (ERENDIRA) Negative COVID-19 Clin Com See Note Influenza Type A (PCR) Influenza Type B (PCR) RSV RNA Qual (PCR) SARS-CoV-2 RNA (RT-PCR) 08/18/22 08/18/22 08/18/22 13:45 15:36 17:24 MCV MCH MCHC RDW Plt Count MPV Immature Gran % (Auto) Neut % (Auto) Lymph % (Auto) [place] % (Auto) Eos % (Auto) Baso % (Auto) Lymph # (Auto) [place] # (Auto) Eos # (Auto) Baso # (Auto) Abs Immat Gran (auto) Absolute Neuts (auto) Absolute Nucleated RBC Nucleated RBC % (auto) Neutrophils % (Manual) Band Neutrophils % Lymphocytes % (Manual) Monocytes % (Manual) Metamyelocytes % Abs Neuts (Manual) Lymphocytes # (Manual) Monocytes # (Manual) Metamyelocytes # Platelet Estimate Plt Morphology Comment RBC Morphology Polychromasia [place] Cells Acanthocytes (Spur) PT INR APTT Anion Gap Estim Creat Clear Calc Estimated GFR POC Glucose Random Glucose Lactic Acid Calcium Total Bilirubin AST ALT Alkaline Phosphatase Troponin I High Sens B-Natriuretic Peptide 60 Total Protein Albumin Urine Color Dark Yellow Urine Appearance Cloudy Urine pH 5.0 Ur Specific [place] 1.025 Urine Protein 100 (2+) H Urine Glucose (UA) Negative Urine Ketones Trace Urine Blood Negative Urine Nitrite Negative Ur Leukocyte Esterase Negative Urine RBC 0-2 Urine WBC 0-5 Ur Squamous Epith Cells 6-10 Ur Transition Epith Cell Present Ur Renal Epithelial Cell Present Urine Bacteria None Seen Hyaline Casts >20 Granular Casts Present COVID-19 ([facility]) COVID-19 Clin Com Influenza Type A (PCR) NEGATIVE Influenza Type B (PCR) NEGATIVE RSV RNA Qual (PCR) NEGATIVE SARS-CoV-2 RNA (RT-PCR) NEGATIVE 08/18/22 08/19/22 08/19/22 21:28 05:38 05:38 MCV 81.5 MCH 26.2 L MCHC 32.1 RDW 14.8 Plt Count 75 L D MPV 12.4 Immature Gran % (Auto) Cancelled Neut % (Auto) Cancelled Lymph % (Auto) Cancelled [place] % (Auto) Cancelled Eos % (Auto) Cancelled Baso % (Auto) Cancelled Lymph # (Auto) Cancelled [place] # (Auto) Cancelled Eos # (Auto) Cancelled Baso # (Auto) Cancelled Abs Immat Gran (auto) Cancelled Absolute Neuts (auto) Cancelled Absolute Nucleated RBC 0.000 Nucleated RBC % (auto) 0.0 Neutrophils % (Manual) 75 H Band Neutrophils % 20 H Lymphocytes % (Manual) 3 L Monocytes % (Manual) 1 L Metamyelocytes % 1 Abs Neuts (Manual) 5.1 Lymphocytes # (Manual) 0.2 L Monocytes # (Manual) 0.1 Metamyelocytes # 0.1 Platelet Estimate DECREASED Plt Morphology Comment NORMAL RBC Morphology NOTED Polychromasia 1+ (0-2) [place] Cells 2+ (3-5) Acanthocytes (Spur) 1+ (0-2) PT INR APTT Anion Gap 16 Estim Creat Clear Calc 35.4 Estimated GFR 39 POC Glucose 213 H Random Glucose 118 H D Lactic Acid Calcium 7.7 L Total Bilirubin AST ALT Alkaline Phosphatase Troponin I High Sens B-Natriuretic Peptide Total Protein Albumin Urine Color Urine Appearance Urine pH Ur Specific [place] Urine Protein Urine Glucose (UA) Urine Ketones Urine Blood Urine Nitrite Ur Leukocyte Esterase Urine RBC Urine WBC Ur Squamous Epith Cells Ur Transition Epith Cell Ur Renal Epithelial Cell Urine Bacteria Hyaline Casts Granular Casts COVID-19 ([facility]) COVID-19 Clin Com Influenza Type A (PCR) Influenza Type B (PCR) RSV RNA Qual (PCR) SARS-CoV-2 RNA (RT-PCR) 08/19/22 08/19/22 08/19/22 07:20 08:41 11:25 MCV MCH MCHC RDW Plt Count MPV Immature Gran % (Auto) Neut % (Auto) Lymph % (Auto) [place] % (Auto) Eos % (Auto) Baso % (Auto) Lymph # (Auto) [place] # (Auto) Eos # (Auto) Baso # (Auto) Abs Immat Gran (auto) Absolute Neuts (auto) Absolute Nucleated RBC Nucleated RBC % (auto) Neutrophils % (Manual) Band Neutrophils % Lymphocytes % (Manual) Monocytes % (Manual) Metamyelocytes % Abs Neuts (Manual) Lymphocytes # (Manual) Monocytes # (Manual) Metamyelocytes # Platelet Estimate Plt Morphology Comment RBC Morphology Polychromasia [place] Cells Acanthocytes (Spur) PT INR APTT Anion Gap Estim Creat Clear Calc Estimated GFR POC Glucose 129 H 162 H 262 H Random Glucose Lactic Acid Calcium Total Bilirubin AST ALT Alkaline Phosphatase Troponin I High Sens B-Natriuretic Peptide Total Protein Albumin Urine Color Urine Appearance Urine pH Ur Specific [place] Urine Protein Urine Glucose (UA) Urine Ketones Urine Blood Urine Nitrite Ur Leukocyte Esterase Urine RBC Urine WBC Ur Squamous Epith Cells Ur Transition Epith Cell Ur Renal Epithelial Cell Urine Bacteria Hyaline Casts Granular Casts COVID-19 ([facility]) COVID-19 Clin Com Influenza Type A (PCR) Influenza Type B (PCR) RSV RNA Qual (PCR) SARS-CoV-2 RNA (RT-PCR) Assessment and Plan (1) Acute cholecystitis: Status: Acute Plan 76 yo M who presented to the ED with cough, sore throat, body aches and lethargy along with RUQ abodminal pain. His work up is consistent with acute kavya. 1. Severe sepsis due to Acute Kavya -- present on admission IV abx for now surgical eval -- dr jenkins notified will try to optimize medically trial of clears 2. FLY cannot rule out ATN SCr slowly ipmroving, continue LR and trend renal function 3. Possible pneumonia given his presenting hypoxia, cough with white sputum, will treat with iv rocephin no major infiltrate seen on ct imaging but will cover empirically 4. Thrombocytopenia, acute possible related to acute infection, will hold heparin products / antiplatets for now 5. Possible esophagitis noted on CT neck PPI, switch to oral prilosec 20mg bid gi consulted 6. HTN hypotensive in the ED hold norvasc and start atenolol tomorrow at 1/2 the dose 7. Lung nodule noted incidentally on CT chest -- slightly more prominant compared to prior will need close outpatient f/u Full Code DVT pptx -- mechnical due to dropping platelts Quality Stroke Does the patient have a stroke diagnosis?: No VTE Prior VTE?: No VTE Risk Level:: Medical - moderate - high VTE Device Contraindication: Treatment Not Indicated VTE Drug Contraindication: N/A - Med Ordered
--- NOTE | 2022-08-19 13:20 | PM.CNGS ---
History of Present Illness Consult details Consult date: 08/19/22 Narrative: 76M brought to the ED yesterday for weakness . According to his family, he has not been eating well for more than a week. He had been getting weaker steadily and yesterday was unable to stand up and was very dizzy. He has had occasional vomitting the past week. He denies abdominal pain but did mention yesterday he had some flank pain. A CT scan was done showing gallstones and cholecysititis. He also mentions some coughing and shortness of breath. He currently says he feels much better than yesterday. He still denies abdominal pain at this time. Review of Systems Constitutional: Constitutional: Denies chills, Reports fatigue, Denies fever(s), Reports malaise and Reports weakness Cardiovascular: Cardiovascular: Denies chest pain, Reports dyspnea and Reports dyspnea on exertion Respiratory: Respiratory: Denies cough, Reports dyspnea and Reports dyspnea on exertion Gastrointestinal: Gastrointestinal: Denies hematochezia and Denies change in bowel habits Genitourinary: Genitourinary: Denies hematuria and Denies difficulty urinating Musculoskeletal: Musculoskeletal: Denies back pain and Denies limited range of motion Neurologic: Denies focal weakness, Denies convulsions and Reports weakness Psychiatric: Psychiatric: Denies depression and Denies mood swings Endocrine: Endocrine: Reports fatigue PMFSH Past Medical History Medical History Abdominal aortic aneurysm without rupture Acute cholecystitis Acute cholecystitis Asthma Atherosclerotic cardiovascular disease CAD (coronary artery disease) Diabetes Esophagitis Essential hypertension Gout Hemorrhage of gastrointestinal tract Hypertension Lung nodule Type 2 diabetes mellitus with unspecified complications Surgical History Surgical History Hernia History of cardiac catheterization History of heart artery stent Social History Social History Household Members: None Household Members Other:: 1 Housing: Apartment Do you presently have visiting nurse or other home services: No Alcohol intake: current Alcohol intake frequency: does not drink Patient Tobacco Use Status: Never used Tobacco Second Hand Smoke Exposure: No Advance Directives Date on File: 02/15/21 service: No Current occupational status: retired Meds Allergies Allergy/AdvReac Type Severity Reaction Status Date / Time No Known Allergies Allergy Mild NOT Verified 05/26/22 21:32 APPLICABLE Active Medications: Current Medications Acetaminophen (Acetaminophen 325 Mg Tablet) 650 mg PO Q6H PRN PRN Reason: Pain, Mild (Pain Scale 1-3) Last Admin: 08/19/22 02:34 Dose: 650 mg Albuterol/Ipratropium (Albuterol/Iprat 2.5/0.5mg 3 Ml Ampul.Neb) 3 ml INHALE RQ4H PRN PRN Reason: Wheezing Atenolol (Atenolol 25 Mg Tablet) 25 mg PO DAILY [facility]; Protocol Dextrose (Dextrose 50 % 25 Gm/50 Ml Syringe) 25 gm IVPUSH Q15M PRN; Protocol PRN Reason: per Hypoglycemia Standing Ord. Docusate Sodium (Docusate Sodium 100 Mg Capsule) 100 mg PO DAILY PRN PRN Reason: Constipation Gabapentin (Gabapentin 100 Mg Capsule) 100 mg PO TID [facility] Glucose (Glucose Gel 15 Gm Gel..Gram.) 15 gm PO Q15M PRN; Protocol PRN Reason: per Hypoglycemia Standing Ord. Metronidazole (Flagyl) 500 mg in 100 mls @ 100 mls/hr IV Q8H [facility] Last Infusion: 08/19/22 10:37 Dose: Infused Ceftriaxone Sodium 1 gm/ (Sodium Chloride) 50 mls @ 100 mls/hr IV Q24H [facility] Lactated Ringer's (Lr) 1,000 mls @ 100 mls/hr IVCONT .Q10H [facility] Last Admin: 08/19/22 03:47 Dose: 100 mls/hr Insulin Human Lispro (Insulin Lispro 100 Unit/Ml 3 Ml Vial) 0 unit SUBCUT QIDACHS [facility]; Protocol Last Admin: 08/19/22 12:50 Dose: Not Given Omeprazole (Omeprazole 20 Mg Capsule.Dr) 20 mg PO BID@0630,1630 [facility] Ondansetron HCl (Ondansetron Hcl 4 Mg/2 Ml Vial) 4 mg IVPUSH Q8H PRN PRN Reason: Nausea and Vomiting Pharmacy Consult (Consult Rx Perform Med Rec) 1 each MISCELLANE ONCE PRN PRN Reason: Consult order Sodium Chloride (0.9 % Sodium Chloride Flush 3 Ml Syringe) 3 ml IVFLUSH QSHIFT [facility] Last Admin: 08/19/22 07:23 Dose: Not Given Tamsulosin HCl (Tamsulosin Hcl 0.4 Mg Capsule) 0.4 mg PO BEDTIME [facility] Trazodone HCl (Trazodone Hcl 50 Mg Tablet) 50 mg PO BEDTIME [facility] Home Medications Medication Instructions Recorded Confirmed Last Taken Type albuterol sulfate 2.5 mg/3 mL 1 vial inhalation QID PRN Wheezing 02/15/21 08/18/22 1 Day Ago History (0.083 %) solution for nebulization ~02/14/21 allopurinol 300 mg tablet 1 tab PO DAILY 02/15/21 08/18/22 1 Day Ago History ~02/14/21 cholecalciferol (vitamin D3) 50 1 cap PO DAILY 02/15/21 08/18/22 1 Day Ago History mcg (2,000 unit) capsule ~02/14/21 loratadine 10 mg tablet 1 tab PO DAILY PRN Allergic 02/15/21 08/18/22 1 Day Ago History Symptoms ~02/14/21 losartan 50 mg tablet 1 tab PO DAILY 02/15/21 08/18/22 1 Day Ago History ~02/14/21 amlodipine 2.5 mg tablet 1 tab PO QPM 08/18/22 08/18/22 Unknown History atenolol 50 mg tablet 1 tab PO DAILY 08/18/22 08/18/22 Unknown History atorvastatin 80 mg tablet 1 tab PO BEDTIME 08/18/22 08/18/22 Unknown History gabapentin 100 mg capsule 1 cap PO TID 08/18/22 08/18/22 Unknown History tamsulosin 0.4 mg capsule 1 cap PO QPM 08/18/22 08/18/22 Unknown History trazodone 50 mg tablet 1 tab PO BEDTIME 08/18/22 08/18/22 Unknown History Physical Exam Vital Signs: Vital Signs: Last Vital Signs Temp 98.1 F 08/19/22 11:24 Pulse 91 08/19/22 11:24 Resp 18 08/19/22 11:24 BP 115/66 08/19/22 11:24 Pulse Ox 92 08/19/22 11:24 O2 Del Method 08/19/22 11:24 O2 Flow Rate 3.0 08/19/22 03:20 Oxygen Flow Rate 3 08/18/22 13:11 BMI result Body Mass Index 22.4 Const: Other: looks a little frail General: comfortable and no acute distress Orientation/consciousness: patient oriented x3 Neck: Neck: Yes no lymphadenopathy Resp: Auscultation: clear to auscultation bilaterally Cardio: Rhythm: regular rhythm GI: Other: no tenderness on the RUQ, no Mercer's sign Palpation (GI): Soft to palpation, nontender and no guarding Neuro: General: patient oriented x3 Results Labs Result diagrams: 08/21/22 05:34 08/21/22 05:34 Labs: Abnormal lab results 08/18/22 08/18/22 08/18/22 Range/Units 13:45 13:45 13:45 WBC 14.1 H (4.8-10.8) X10*3/uL RBC 4.32 L (4.60-5.80) X10*6/uL Hgb 11.5 L (14.0-18.0) g/dl Hct 34.6 L (42.0-52.0) % MCH 26.6 L (27.0-33.0) pg Plt Count 109 L D (160-400) X10*3/uL Neutrophils % (Manual) (45-73) % Band Neutrophils % 24 H (3-5) % Lymphocytes % (Manual) 2 L (20-40) % Monocytes % (Manual) (2-11) % Abs Neuts (Manual) 13.4 H (2.0-8.3) X10*3/uL Lymphocytes # (Manual) 0.3 L (1.2-4.9) X10*3/uL PT 13.3 H (10.0-13.1) SEC INR 1.2 H (0.9-1.1) APTT 25.8 L (26.0-36.4) SEC Potassium 3.0 L D (3.3-5.1) mmol/L Chloride (96-108) mmol/L Carbon Dioxide 21 L (22-29) mmol/L BUN 62 H D (9-16) mg/dL Creatinine 2.79 H (0.5-1.4) mg/dL POC Glucose (60-115) mg/dL Random Glucose 272 H (60-115) mg/dL Calcium 8.1 L D (8.4-10.2) mg/dL Total Bilirubin 1.2 H (0.0-1.0) mg/dL Alkaline Phosphatase 137 H (39-117) U/L Total Protein 5.3 L (6.5-8.0) g/dL Albumin 3.2 L (3.5-5.0) g/dL Urine Protein (Neg-Trace) mg/dL 08/18/22 08/18/22 08/19/22 Range/Units 17:24 21:28 05:38 WBC (4.8-10.8) X10*3/uL RBC 4.01 L (4.60-5.80) X10*6/uL Hgb 10.5 L (14.0-18.0) g/dl Hct 32.7 L (42.0-52.0) % MCH 26.2 L (27.0-33.0) pg Plt Count 75 L D (160-400) X10*3/uL Neutrophils % (Manual) 75 H (45-73) % Band Neutrophils % 20 H (3-5) % Lymphocytes % (Manual) 3 L (20-40) % Monocytes % (Manual) 1 L (2-11) % Abs Neuts (Manual) (2.0-8.3) X10*3/uL Lymphocytes # (Manual) 0.2 L (1.2-4.9) X10*3/uL PT (10.0-13.1) SEC INR (0.9-1.1) APTT (26.0-36.4) SEC Potassium (3.3-5.1) mmol/L Chloride (96-108) mmol/L Carbon Dioxide (22-29) mmol/L BUN (9-16) mg/dL Creatinine (0.5-1.4) mg/dL POC Glucose 213 H (60-115) mg/dL Random Glucose (60-115) mg/dL Calcium (8.4-10.2) mg/dL Total Bilirubin (0.0-1.0) mg/dL Alkaline Phosphatase (39-117) U/L Total Protein (6.5-8.0) g/dL Albumin (3.5-5.0) g/dL Urine Protein 100 (2+) H (Neg-Trace) mg/dL 08/19/22 08/19/22 08/19/22 Range/Units 05:38 07:20 08:41 WBC (4.8-10.8) X10*3/uL RBC (4.60-5.80) X10*6/uL Hgb (14.0-18.0) g/dl Hct (42.0-52.0) % MCH (27.0-33.0) pg Plt Count (160-400) X10*3/uL Neutrophils % (Manual) (45-73) % Band Neutrophils % (3-5) % Lymphocytes % (Manual) (20-40) % Monocytes % (Manual) (2-11) % Abs Neuts (Manual) (2.0-8.3) X10*3/uL Lymphocytes # (Manual) (1.2-4.9) X10*3/uL PT (10.0-13.1) SEC INR (0.9-1.1) APTT (26.0-36.4) SEC Potassium (3.3-5.1) mmol/L Chloride 111 H (96-108) mmol/L Carbon Dioxide 18 L (22-29) mmol/L BUN 49 H (9-16) mg/dL Creatinine 1.70 H (0.5-1.4) mg/dL POC Glucose 129 H 162 H (60-115) mg/dL Random Glucose 118 H D (60-115) mg/dL Calcium 7.7 L (8.4-10.2) mg/dL Total Bilirubin (0.0-1.0) mg/dL Alkaline Phosphatase (39-117) U/L Total Protein (6.5-8.0) g/dL Albumin (3.5-5.0) g/dL Urine Protein (Neg-Trace) mg/dL 08/19/22 Range/Units 11:25 WBC (4.8-10.8) X10*3/uL RBC (4.60-5.80) X10*6/uL Hgb (14.0-18.0) g/dl Hct (42.0-52.0) % MCH (27.0-33.0) pg Plt Count (160-400) X10*3/uL Neutrophils % (Manual) (45-73) % Band Neutrophils % (3-5) % Lymphocytes % (Manual) (20-40) % Monocytes % (Manual) (2-11) % Abs Neuts (Manual) (2.0-8.3) X10*3/uL Lymphocytes # (Manual) (1.2-4.9) X10*3/uL PT (10.0-13.1) SEC INR (0.9-1.1) APTT (26.0-36.4) SEC Potassium (3.3-5.1) mmol/L Chloride (96-108) mmol/L Carbon Dioxide (22-29) mmol/L BUN (9-16) mg/dL Creatinine (0.5-1.4) mg/dL POC Glucose 262 H (60-115) mg/dL Random Glucose (60-115) mg/dL Calcium (8.4-10.2) mg/dL Total Bilirubin (0.0-1.0) mg/dL Alkaline Phosphatase (39-117) U/L Total Protein (6.5-8.0) g/dL Albumin (3.5-5.0) g/dL Urine Protein (Neg-Trace) mg/dL Short CBC 08/18/22 08/19/22 Range/Units 13:45 05:38 WBC 14.1 H 5.4 (4.8-10.8) X10*3/uL Hgb 11.5 L 10.5 L (14.0-18.0) g/dl Hct 34.6 L 32.7 L (42.0-52.0) % Plt Count 109 L D 75 L D (160-400) X10*3/uL BMP 08/18/22 08/19/22 13:45 05:38 Sodium 138 142 Potassium 3.0 L D 3.4 Chloride 103 111 H Carbon Dioxide 21 L 18 L BUN 62 H D 49 H Creatinine 2.79 H 1.70 H Calcium 8.1 L D 7.7 L Liver Function 08/18/22 Range/Units 13:45 Total Bilirubin 1.2 H (0.0-1.0) mg/dL AST 27 D (5-37) U/L ALT 24 (0-40) U/L Alkaline Phosphatase 137 H (39-117) U/L Albumin 3.2 L (3.5-5.0) g/dL Urine 08/18/22 Range/Units 17:24 Urine Color Dark Yellow Urine Appearance Cloudy Urine pH 5.0 (5.0-9.0) Ur Specific [place] 1.025 (1.005-1.025) Urine Protein 100 (2+) H (Neg-Trace) mg/dL Urine Glucose (UA) Negative (Negative) mg/dL All other labs normal. Imaging Additional studies: Laboratory Results WBC 5.4 X10*3/uL (4.8-10.8) 08/19/22 05:38 RBC 4.01 X10*6/uL (4.60-5.80) L 08/19/22 05:38 Hgb 10.5 g/dl (14.0-18.0) L 08/19/22 05:38 Hct 32.7 % (42.0-52.0) L 08/19/22 05:38 MCV 81.5 fL (80.0-98.0) 08/19/22 05:38 MCH 26.2 pg (27.0-33.0) L 08/19/22 05:38 MCHC 32.1 g/dl (31.0-36.0) 08/19/22 05:38 RDW 14.8 % (11.0-16.0) 08/19/22 05:38 Plt Count 75 X10*3/uL (160-400) L D 08/19/22 05:38 MPV 12.4 fL (9.4-12.4) 08/19/22 05:38 Immature Gran % (Auto) Cancelled 08/19/22 05:38 Neut % (Auto) Cancelled 08/19/22 05:38 Lymph % (Auto) Cancelled 08/19/22 05:38 [place] % (Auto) Cancelled 08/19/22 05:38 Eos % (Auto) Cancelled 08/19/22 05:38 Baso % (Auto) Cancelled 08/19/22 05:38 Lymph # (Auto) Cancelled 08/19/22 05:38 [place] # (Auto) Cancelled 08/19/22 05:38 Eos # (Auto) Cancelled 08/19/22 05:38 Baso # (Auto) Cancelled 08/19/22 05:38 Abs Immat Gran (auto) Cancelled 08/19/22 05:38 Absolute Neuts (auto) Cancelled 08/19/22 05:38 Absolute Nucleated RBC 0.000 X10*3/uL (0.0-0.012) 08/19/22 05:38 Nucleated RBC % (auto) 0.0 /100WBC (0.0-0.2) 08/19/22 05:38 Neutrophils % (Manual) 75 % (45-73) H 08/19/22 05:38 Band Neutrophils % 20 % (3-5) H 08/19/22 05:38 Lymphocytes % (Manual) 3 % (20-40) L 08/19/22 05:38 Monocytes % (Manual) 1 % (2-11) L 08/19/22 05:38 Metamyelocytes % 1 % 08/19/22 05:38 Abs Neuts (Manual) 5.1 X10*3/uL (2.0-8.3) 08/19/22 05:38 Lymphocytes # (Manual) 0.2 X10*3/uL (1.2-4.9) L 08/19/22 05:38 Monocytes # (Manual) 0.1 X10*3/uL (0.1-1.2) 08/19/22 05:38 Metamyelocytes # 0.1 X10*3/uL 08/19/22 05:38 Platelet Estimate DECREASED (NORMAL) 08/19/22 05:38 Plt Morphology Comment NORMAL 08/19/22 05:38 RBC Morphology NOTED 08/19/22 05:38 Polychromasia 1+ (0-2) /OIF 08/19/22 05:38 Jammie Cells 2+ (3-5) /OIF 08/19/22 05:38 Acanthocytes (Spur) 1+ (0-2) /OIF 08/19/22 05:38 PT 13.3 SEC (10.0-13.1) H 08/18/22 13:45 INR 1.2 (0.9-1.1) H 08/18/22 13:45 APTT 25.8 SEC (26.0-36.4) L 08/18/22 13:45 Sodium 142 mmol/L (135-145) 08/19/22 05:38 Potassium 3.4 mmol/L (3.3-5.1) 08/19/22 05:38 Chloride 111 mmol/L (96-108) H 08/19/22 05:38 Carbon Dioxide 18 mmol/L (22-29) L 08/19/22 05:38 Anion Gap 16 (12-20) 08/19/22 05:38 BUN 49 mg/dL (9-16) H 08/19/22 05:38 Creatinine 1.70 mg/dL (0.5-1.4) H 08/19/22 05:38 Estim Creat Clear Calc 35.4 08/19/22 05:38 Estimated GFR 39 08/19/22 05:38 POC Glucose 262 mg/dL (60-115) H 08/19/22 11:25 Random Glucose 118 mg/dL (60-115) H D 08/19/22 05:38 Lactic Acid 1.5 mmol/L (0.5-2.0) 08/18/22 13:45 Calcium 7.7 mg/dL (8.4-10.2) L 08/19/22 05:38 Total Bilirubin 1.2 mg/dL (0.0-1.0) H 08/18/22 13:45 AST 27 U/L (5-37) D 08/18/22 13:45 ALT 24 U/L (0-40) 08/18/22 13:45 Alkaline Phosphatase 137 U/L (39-117) H 08/18/22 13:45 Troponin I High Sens 25.5 ng/L (<3.5-35.0) D 08/18/22 13:45 B-Natriuretic Peptide 60 pg/mL (<100) 08/18/22 13:45 Total Protein 5.3 g/dL (6.5-8.0) L 08/18/22 13:45 Albumin 3.2 g/dL (3.5-5.0) L 08/18/22 13:45 Urine Color Dark Yellow 08/18/22 17:24 Urine Appearance Cloudy 08/18/22 17:24 Urine pH 5.0 (5.0-9.0) 08/18/22 17:24 Ur Specific [place] 1.025 (1.005-1.025) 08/18/22 17:24 Urine Protein 100 (2+) mg/dL (Neg-Trace) H 08/18/22 17:24 Urine Glucose (UA) Negative mg/dL (Negative) 08/18/22 17:24 Urine Ketones Trace mg/dL (Negative) 08/18/22 17:24 Urine Blood Negative (Negative) 08/18/22 17:24 Urine Nitrite Negative (Negative) 08/18/22 17:24 Ur Leukocyte Esterase Negative (Negative) 08/18/22 17:24 Urine RBC 0-2 /HPF (0-2) 08/18/22 17:24 Urine WBC 0-5 /HPF (0-5) 08/18/22 17:24 Ur Squamous Epith Cells 6-10 /HPF (0-2) 08/18/22 17:24 Ur Transition Epith Cell Present 08/18/22 17:24 Ur Renal Epithelial Cell Present 08/18/22 17:24 Urine Bacteria None Seen (None Seen) 08/18/22 17:24 Hyaline Casts >20 /LPF (0-2) 08/18/22 17:24 Granular Casts Present 08/18/22 17:24 COVID-19 (ERENDIRA) Negative (Negative) 08/18/22 13:45 COVID-19 Clin Com See Note 08/18/22 13:45 Influenza Type A (PCR) NEGATIVE (Negative) 08/18/22 15:36 Influenza Type B (PCR) NEGATIVE (Negative) 08/18/22 15:36 RSV RNA Qual (PCR) NEGATIVE (Negative) 08/18/22 15:36 SARS-CoV-2 RNA (RT-PCR) NEGATIVE (Negative) 08/18/22 15:36 Impressions Chest X-Ray 08/18/22 14:30 IMPRESSION: Mild linear atelectasis/scarring without definitive infiltrate. Abdomen/Pelvis CT 08/18/22 15:19 IMPRESSION: Acute cholecystitis. Cholelithiasis. Right lung lesion adjacent to the major minor fissure which appears slightly more prominent than on previous study of May 27, 2022. According to the UPDATED 2017 Fleischner Society recommendations, the advised follow-up imaging for a single solid nodule measuring 8 mm or greater is: Consider CT, PET/CT, or tissue sampling at 3 months. Bilateral lower lobe interstitial disease. Chest CT 08/18/22 15:19 IMPRESSION: Acute cholecystitis. Cholelithiasis. Right lung lesion adjacent to the major minor fissure which appears slightly more prominent than on previous study of May 27, 2022. According to the UPDATED 2017 Fleischner Society recommendations, the advised follow-up imaging for a single solid nodule measuring 8 mm or greater is: Consider CT, PET/CT, or tissue sampling at 3 months. Bilateral lower lobe interstitial disease. Head CT 08/18/22 15:19 IMPRESSION: Negative acute noncontrast CT of the brain. Soft Tissue Neck CT 08/18/22 15:19 IMPRESSION: 1. Somewhat limited evaluation of the soft tissues of the neck secondary to motion degradation and in the absence of intravenous contrast. No imaging findings of infection involving the soft tissues of the neck. 2. Circumferential wall thickening of the upper thoracic esophagus. Correlate clinically for esophagitis. Assessment and Plan (1) Acute cholecystitis: Status: Inactive He actually does not have signfiicant pain or tenderness on exam despite the CT scan findings. He subjectively feels much better after fluids yesterday. He has a pneumonia as well, and his platelet ct is dropping. I would recommend continuing with IV abx at this time. He may be kept on clear liquids for now. His pneumonia should be treated, and his platelets followed closely. Depending on his clinical course, we can do cholecystectomy early next week. I have discussed the above with his family at bedside and they are comfortable with the plan. I have discussed the above with the hospitalist. Procedures Date of Service Date of Service: 08/19/22
[2022-08-19] MEDS: cefTRIAXone sodium 1 GM in 0.9 % Sodium Chloride 50 ML IV (13:31)
[2022-08-19] MEDS: Gabapentin 100 MG CAPSULE PO ×2 (14:15→20:50)
--- NOTE | 2022-08-19 14:45 | MHC.CLN ---
NUTRITION CONSULT FOR REPORTED 20-25# WEIGHT LOSS. REVIEW OF WEIGHT HX SHOWS WEIGHT LOSS SINCE 05/26/22, -8.4#, 5.2%. PATIENT VOMITING FOR 5 DAYS PRIOR TO ADMISSION. APPEARS RESOLVED. (?) PRESENT AT VISIT, STATING THAT HE HAS NOT EATEN TODAY. DIET=CLEAR LIQUIDS. FOLLOW UP FOR DIET ADVANCEMENT AND INTAKE.
[2022-08-19 15:54] LABS: Glucose, Whole Blood 254 mg/dL (60-115)
[2022-08-19] MEDS: Omeprazole 20 MG CAPSULE.DR PO (16:57)
[2022-08-19 19:49] LABS: Glucose, Whole Blood 181 mg/dL (60-115)
[2022-08-19] MEDS: Tamsulosin HCL 0.4 MG CAPSULE PO (20:50)
[2022-08-19] MEDS: traZODone HCL 50 MG TABLET PO (20:50)
[2022-08-20] VITALS (7 sets, daily range): BP systolic 114–146; BP diastolic 60–79; PULSE 74–90; RESP 16–18; TEMP 36.6–37.8; O2SAT 93–96
[2022-08-20] MEDS: 0.9 % Sodium Chloride Flush 3 ML SYRINGE IVFLUSH (00:07)
[2022-08-20] MEDS: metroNIDAZOLE/NS 500 MG/100 ML PIGGYBACK 100 MG IV ×3 (02:25→17:43)
[2022-08-20] MEDS: Lactated Ringers 1,000 ML 100 ML IVCONT ×2 (04:56→14:08)
[2022-08-20] MEDS: Omeprazole 20 MG CAPSULE.DR PO ×2 (05:00→17:43)
[2022-08-20 06:15] LABS: Hematocrit 31.3 % (42.0-52.0); Hemoglobin 10.1 g/dl (14.0-18.0); Mean Corpuscular HGB Conc 32.3 g/dl (31.0-36.0); Mean Corpuscular Hemoglobin 26.2 pg (27.0-33.0); Mean Corpuscular Volume 81.1 fL (80.0-98.0); Mean Platelet Volume 13.1 fL (9.4-12.4); Red Blood Count 3.86 X10*6/uL (4.60-5.80); White Blood Count 9.7 X10*3/uL (4.8-10.8)
[2022-08-20 06:17] LABS: Platelet Count 89 X10*3/uL (160-400)
[2022-08-20 06:34] LABS: Alanine Aminotransferase 28 U/L (0-40); Albumin Level 2.8 g/dL (3.5-5.0); Alkaline Phosphatase 109 U/L (39-117); Anion Gap 15 (12-20); Aspartate Amino Transferase 23 U/L (5-37); Bilirubin Total 0.4 mg/dL (0.0-1.0); Blood Urea Nitrogen 33 mg/dL (9-16); Calcium 8.2 mg/dL (8.4-10.2); Carbon Dioxide 20 mmol/L (22-29); Chloride 112 mmol/L (96-108); Creatinine Clr Calc Pharmacy 56.7; Estimated Glomerular Filt Rate > 60; Glucose Random 112 mg/dL (60-115); Potassium 3.6 mmol/L (3.3-5.1); Sodium 143 mmol/L (135-145); Total Protein 4.6 g/dL (6.5-8.0)
[2022-08-20 07:37] LABS: Glucose, Whole Blood 113 mg/dL (60-115)
[2022-08-20] MEDS: atenoloL 25 MG TABLET PO (07:40)
[2022-08-20] MEDS: Gabapentin 100 MG CAPSULE PO ×3 (07:40→20:43)
--- NOTE | 2022-08-20 07:55 | HO.PM.IMPN ---
Subjective Subjective Date of Service: 08/20/22 Interval History: Patient seen and examined at bedside. He reports that he did like his breakfast, he denies any abdominal pain, reports no shortness of breath. Denies any no constipation. No trouble breathing. Physical Exam Vital Signs: Vital Signs: Last Vital Signs Temp 98.3 F 08/20/22 07:33 Pulse 86 08/20/22 07:33 Resp 17 08/20/22 07:33 BP 129/72 08/20/22 07:33 Pulse Ox 95 08/20/22 07:33 O2 Del Method 08/20/22 07:33 O2 Flow Rate 3.0 08/19/22 03:20 Oxygen Flow Rate 3 08/18/22 13:11 BMI result Body Mass Index 22.4 Const: Other: looks a little frail General: comfortable and no acute distress Orientation/consciousness: patient oriented x3 Resp: Auscultation: clear to auscultation bilaterally Cardio: Rhythm: regular rhythm GI: Other: no tenderness on the RUQ, no Mercer's sign Palpation (GI): Soft to palpation, nontender and no guarding Neuro: General: patient oriented x3 Objective Data Active Medications Acetaminophen (Acetaminophen 325 Mg Tablet) 650 mg PO Q6H PRN PRN Reason: Pain, Mild (Pain Scale 1-3) Last Admin: 08/19/22 02:34 Dose: 650 mg Documented By: MORRINWinter Albuterol/Ipratropium (Albuterol/Iprat 2.5/0.5mg 3 Ml Ampul.Neb) 3 ml INHALE RQ4H PRN PRN Reason: Wheezing Atenolol (Atenolol 25 Mg Tablet) 25 mg PO DAILY [facility]; Protocol Last Admin: 08/20/22 07:40 Dose: 25 mg Documented By: DANIEL Dextrose (Dextrose 50 % 25 Gm/50 Ml Syringe) 25 gm IVPUSH Q15M PRN; Protocol PRN Reason: per Hypoglycemia Standing Ord. Docusate Sodium (Docusate Sodium 100 Mg Capsule) 100 mg PO DAILY PRN PRN Reason: Constipation Gabapentin (Gabapentin 100 Mg Capsule) 100 mg PO TID [facility] Last Admin: 08/20/22 07:40 Dose: 100 mg Documented By: DANIEL Glucose (Glucose Gel 15 Gm Gel..Gram.) 15 gm PO Q15M PRN; Protocol PRN Reason: per Hypoglycemia Standing Ord. Metronidazole (Flagyl) 500 mg in 100 mls @ 100 mls/hr IV Q8H [facility] Last Infusion: 08/20/22 03:48 Dose: 0 mls/hr Documented By: CINDY Ceftriaxone Sodium 1 gm/ (Sodium Chloride) 50 mls @ 100 mls/hr IV Q24H [facility] Last Infusion: 08/19/22 14:53 Dose: 100 mls/hr Documented By: LETICIA Lactated Ringer's (Lr) 1,000 mls @ 100 mls/hr IVCONT .Q10H [facility] Last Admin: 08/20/22 07:42 Dose: Not Given Documented By: DANIEL Non-Admin Reason: IV Running Insulin Human Lispro (Insulin Lispro 100 Unit/Ml 3 Ml Vial) 0 unit SUBCUT QIDACHS [facility]; Protocol Last Admin: 08/20/22 07:40 Dose: Not Given Documented By: DANIEL Non-Admin Reason: No Insulin Coverage Omeprazole (Omeprazole 20 Mg Capsule.) 20 mg PO BID@0630,1630 [facility] Last Admin: 08/20/22 05:00 Dose: 20 mg Documented By: CINDY Ondansetron HCl (Ondansetron Hcl 4 Mg/2 Ml Vial) 4 mg IVPUSH Q8H PRN PRN Reason: Nausea and Vomiting Pharmacy Consult (Consult Rx Perform Med Rec) 1 each MISCELLANE ONCE PRN PRN Reason: Consult order Sodium Chloride (0.9 % Sodium Chloride Flush 3 Ml Syringe) 3 ml IVFLUSH QSHIFT [facility] Last Admin: 08/20/22 07:40 Dose: Not Given Documented By: DANIEL Non-Admin Reason: IV Running Tamsulosin HCl (Tamsulosin Hcl 0.4 Mg Capsule) 0.4 mg PO BEDTIME [facility] Last Admin: 08/19/22 20:50 Dose: 0.4 mg Documented By: WAN Trazodone HCl (Trazodone Hcl 50 Mg Tablet) 50 mg PO BEDTIME [facility] Last Admin: 08/19/22 20:50 Dose: 50 mg Documented By: WAN Labs CBC & Chem 7: 08/20/22 05:33 08/20/22 05:33 Labs: Laboratory Results - last 24 hr 08/19/22 08/19/22 08/19/22 08:41 11:25 15:50 MCV MCH MCHC RDW Plt Count MPV Absolute Nucleated RBC Nucleated RBC % (auto) Anion Gap Estim Creat Clear Calc Estimated GFR POC Glucose 162 H 262 H 254 H Random Glucose Calcium Total Bilirubin AST ALT Alkaline Phosphatase Total Protein Albumin 08/19/22 08/20/22 08/20/22 19:44 05:33 05:33 MCV 81.1 MCH 26.2 L MCHC 32.3 RDW 15.0 Plt Count 89 L MPV 13.1 H Absolute Nucleated RBC 0.000 Nucleated RBC % (auto) 0.0 Anion Gap 15 Estim Creat Clear Calc 56.7 Estimated GFR > 60 POC Glucose 181 H Random Glucose 112 Calcium 8.2 L D Total Bilirubin 0.4 AST 23 ALT 28 Alkaline Phosphatase 109 D Total Protein 4.6 L Albumin 2.8 L 08/20/22 07:32 MCV MCH MCHC RDW Plt Count MPV Absolute Nucleated RBC Nucleated RBC % (auto) Anion Gap Estim Creat Clear Calc Estimated GFR POC Glucose 113 Random Glucose Calcium Total Bilirubin AST ALT Alkaline Phosphatase Total Protein Albumin Microbiology Microbiology Results: Microbiology 08/18/22 13:45 Blood Culture - Preliminary Blood - Venous No growth after 24 hours. 08/18/22 13:30 Blood Culture - Preliminary Blood - Venous No growth after 24 hours. Assessment and Plan (1) Acute cholecystitis: Status: Acute (2) Pneumonia: Status: Acute (3) Lung nodule: Status: Acute (4) Acute respiratory failure with hypoxia: Status: Acute (5) Esophagitis: Status: Acute (6) FLY (acute kidney injury): Status: Acute Plan 1. Severe sepsis due to? Acute cholecystitis -- present on admission - had FLY - evaluated by surgery, at this point no plan for surgery, continue IV antibiotics -IV abx for now - will advance diet to full liquid 2. FLY - resolved - creatinine function back to baseline - will continue fluid as patient not eating this morning, was patient able to tolerate diet,. Fluids 3. pneumonia - hypoxia resolved - day 2 of Rocephin - patient will need IV antibiotics for acute cholecystitis, can be switched to p.o. upon discharge once cleared by surgery 4. Thrombocytopenia, acute - possible related to acute infection, will hold heparin products / antiplatets for now - Plt count improving - follow cbc 5. Possible esophagitis - noted on CT neck - PPI, switch to oral prilosec 20mg bid - gi consulted 6. HTN - BP stabilized - Will resume home antihypertensive at lower dose 7. Lung nodule - noted incidentally on CT chest -- slightly more prominant compared to prior - will need close outpatient f/u Full Code DVT pptx -- mechnical due to dropping platelts- avoid heparin products Given patient's acute cholecystitis, and need for IV antibiotics, patient will require continued hospitalization Quality Stroke Does the patient have a stroke diagnosis?: No VTE Prior VTE?: No VTE Risk Level:: Medical - moderate - high VTE Device Contraindication: Treatment Not Indicated VTE Drug Contraindication: N/A - Med Ordered
[2022-08-20 09:43] LABS: Ferritin 324 ng/mL (20-250)
[2022-08-20 09:54] LABS: Folate 11.5 ng/mL (> or = 4.0); Vitamin B12 340 pg/mL (200-900)
[2022-08-20] MEDS: Acetaminophen 325 MG TABLET 650 MG PO (11:23)
[2022-08-20] MEDS: amLODIPine Besylate 2.5 MG TABLET PO ×2 (11:24→20:43)
[2022-08-20] MEDS: Docusate Sodium 100 MG CAPSULE PO (11:24)
[2022-08-20] MEDS: cefTRIAXone sodium 1 GM in 0.9 % Sodium Chloride 50 ML IV (11:37)
[2022-08-20 11:44] LABS: Glucose, Whole Blood 113 mg/dL (60-115)
--- NOTE | 2022-08-20 14:36 | P.PNGS_ITS ---
Subjective Subjective Date of Service: 08/20/22 Patient reports: feels better Interval history: no abdo pain, hungry no nausea Physical Exam Vital Signs: Vital Signs: Last Vital Signs Temp 98.7 F 08/20/22 14:14 Pulse 80 08/20/22 11:16 Resp 16 08/20/22 11:16 BP 135/68 08/20/22 11:16 Pulse Ox 95 08/20/22 11:16 O2 Del Method 08/20/22 11:16 O2 Flow Rate 3.0 08/19/22 03:20 Oxygen Flow Rate 3 08/18/22 13:11 BMI result Body Mass Index 22.4 Const: General: cooperative, healthy appearing and comfortable HEENT: Head: Yes normal to inspection Resp: Effort & Inspection: normal respiratory effort Auscultation: clear to auscultation bilaterally Cardio: Rate: regular rate Rhythm: regular rhythm GI: Other: abdo is round soft nontender no guarding active bowel sounds Skin: Other: nonicteric Extrem: General: Yes normal to inspection and Yes full ROM Psych: Appearance: grossly normal Mental Status: mental status grossly normal Speech and movement: Normal speech and movement present Affect: normal affect Objective Data Active Medications Acetaminophen (Acetaminophen 325 Mg Tablet) 650 mg PO Q6H PRN PRN Reason: Pain, Mild (Pain Scale 1-3) Last Admin: 08/20/22 11:23 Dose: 650 mg Documented By: DANIEL Albuterol/Ipratropium (Albuterol/Iprat 2.5/0.5mg 3 Ml Ampul.Neb) 3 ml INHALE RQ4H PRN PRN Reason: Wheezing Amlodipine Besylate (Amlodipine Besylate 2.5 Mg Tablet) 2.5 mg PO DAILY@2100 [facility]; Protocol Last Admin: 08/20/22 11:24 Dose: 2.5 mg Documented By: DANIEL Atenolol (Atenolol 25 Mg Tablet) 25 mg PO DAILY [facility]; Protocol Last Admin: 08/20/22 07:40 Dose: 25 mg Documented By: DANIEL Dextrose (Dextrose 50 % 25 Gm/50 Ml Syringe) 25 gm IVPUSH Q15M PRN; Protocol PRN Reason: per Hypoglycemia Standing Ord. Docusate Sodium (Docusate Sodium 100 Mg Capsule) 100 mg PO DAILY PRN PRN Reason: Constipation Last Admin: 08/20/22 11:24 Dose: 100 mg Documented By: DANIEL Gabapentin (Gabapentin 100 Mg Capsule) 100 mg PO TID [facility] Last Admin: 08/20/22 07:40 Dose: 100 mg Documented By: DANIEL Glucose (Glucose Gel 15 Gm Gel..Gram.) 15 gm PO Q15M PRN; Protocol PRN Reason: per Hypoglycemia Standing Ord. Metronidazole (Flagyl) 500 mg in 100 mls @ 100 mls/hr IV Q8H [facility] Last Infusion: 08/20/22 11:25 Dose: 0 mls/hr Documented By: DANIEL Lactated Ringer's (Lr) 1,000 mls @ 100 mls/hr IVCONT .Q10H [facility] Last Admin: 08/20/22 14:08 Dose: 100 mls/hr Documented By: DANIEL Ceftriaxone Sodium 1 gm/ (Sodium Chloride) 50 mls @ 100 mls/hr IV Q24H [facility] Last Infusion: 08/20/22 13:26 Dose: 0 mls/hr Documented By: DANIEL Insulin Human Lispro (Insulin Lispro 100 Unit/Ml 3 Ml Vial) 0 unit SUBCUT QIDACHS [facility]; Protocol Last Admin: 08/20/22 13:22 Dose: Not Given Documented By: DANIEL Non-Admin Reason: No Insulin Coverage Omeprazole (Omeprazole 20 Mg Capsule.) 20 mg PO BID@0630,1630 [facility] Last Admin: 08/20/22 05:00 Dose: 20 mg Documented By: CINDY Ondansetron HCl (Ondansetron Hcl 4 Mg/2 Ml Vial) 4 mg IVPUSH Q8H PRN PRN Reason: Nausea and Vomiting Pharmacy Consult (Consult Rx Perform Med Rec) 1 each MISCELLANE ONCE PRN PRN Reason: Consult order Sodium Chloride (0.9 % Sodium Chloride Flush 3 Ml Syringe) 3 ml IVFLUSH QSHIFT [facility] Last Admin: 08/20/22 07:40 Dose: Not Given Documented By: DANIEL Non-Admin Reason: IV Running Tamsulosin HCl (Tamsulosin Hcl 0.4 Mg Capsule) 0.4 mg PO BEDTIME [facility] Last Admin: 08/19/22 20:50 Dose: 0.4 mg Documented By: WAN Trazodone HCl (Trazodone Hcl 50 Mg Tablet) 50 mg PO BEDTIME [facility] Last Admin: 08/19/22 20:50 Dose: 50 mg Documented By: WAN Labs CBC & Chem 7: 08/20/22 05:33 08/20/22 05:33 Labs: Laboratory Results - last 24 hr 08/19/22 08/19/22 08/20/22 15:50 19:44 05:33 MCV 81.1 MCH 26.2 L MCHC 32.3 RDW 15.0 Plt Count 89 L MPV 13.1 H Absolute Nucleated RBC 0.000 Nucleated RBC % (auto) 0.0 Anion Gap Estim Creat Clear Calc Estimated GFR POC Glucose 254 H 181 H Random Glucose Calcium Ferritin Total Bilirubin AST ALT Alkaline Phosphatase Total Protein Albumin Vitamin B12 Folate 08/20/22 08/20/22 08/20/22 05:33 07:32 08:09 MCV MCH MCHC RDW Plt Count MPV Absolute Nucleated RBC Nucleated RBC % (auto) Anion Gap 15 Estim Creat Clear Calc 56.7 Estimated GFR > 60 POC Glucose 113 Random Glucose 112 Calcium 8.2 L D Ferritin 324 H Total Bilirubin 0.4 AST 23 ALT 28 Alkaline Phosphatase 109 D Total Protein 4.6 L Albumin 2.8 L Vitamin B12 Folate 08/20/22 08/20/22 08:09 11:08 MCV MCH MCHC RDW Plt Count MPV Absolute Nucleated RBC Nucleated RBC % (auto) Anion Gap Estim Creat Clear Calc Estimated GFR POC Glucose 113 Random Glucose Calcium Ferritin Total Bilirubin AST ALT Alkaline Phosphatase Total Protein Albumin Vitamin B12 340 Folate 11.5 Microbiology Microbiology Results: Microbiology 08/18/22 13:45 Blood Culture - Preliminary Blood - Venous No growth after 24 hours. 08/18/22 13:30 Blood Culture - Preliminary Blood - Venous No growth after 24 hours. Procedures Date of Service Date of Service: 08/20/22 Progress Note: A&P Assessment and plan (1) Pneumonia: Status: Acute Assessment and Plan: med team following (2) Acute cholecystitis: Status: Acute Assessment and Plan: 76 year old male with cholecystitis improving - wbc normal - ? elevated due to GB or pneumonia - he has no abdo complaints his exam is benign and labs look ok agree to cont with iv antibx agree with advance the full liquids and trial of toast and low fat diet tomorrow his platelets are low but improving -? etiologly but still low for an elective type of surgery - goal will be to get better and see how he does. no indications for urgent surgery - improving pneumonia and cholecystitis conservatively Time Spent With Patient Time: Total time spent is greater than 50% in coordination of care (as documented) at patient's floor/unit and/or counseling patient: Quality Stroke Does the patient have a stroke diagnosis?: No VTE Prior VTE?: No VTE Risk Level:: Medical - moderate - high VTE Device Contraindication: Treatment Not Indicated VTE Drug Contraindication: N/A - Med Ordered
[2022-08-20 16:35] LABS: Glucose, Whole Blood 148 mg/dL (60-115)
[2022-08-20 18:22] LABS: OBS Int Ctl Valid YES; OBS1 NEGATIVE (NEGATIVE)
[2022-08-20 20:11] LABS: Glucose, Whole Blood 159 mg/dL (60-115)
[2022-08-20] MEDS: Insulin Lispro 100 UNIT/ML 3 ML VIAL SUBCUT (20:42)
[2022-08-20] MEDS: traZODone HCL 50 MG TABLET PO (20:43)
[2022-08-20] MEDS: Tamsulosin HCL 0.4 MG CAPSULE PO (20:43)
[2022-08-21] VITALS: BP 121/63; PULSE 89; RESP 16; TEMP 37.2; O2SAT 94
[2022-08-21] MEDS: 0.9 % Sodium Chloride Flush 3 ML SYRINGE IVFLUSH ×2 (00:18→08:10)
[2022-08-21] MEDS: metroNIDAZOLE/NS 500 MG/100 ML PIGGYBACK 100 MG IV (01:59)
[2022-08-21 03:34] VITALS: BP 134/71; PULSE 83; RESP 16; TEMP 37.1; O2SAT 94
[2022-08-21 06:29] LABS: Basophils Percent Auto 0.4 % (0-2); Hemoglobin 10.2 g/dl (14.0-18.0); Imm Gran Abs Auto 0.14 X10*3/uL (0.00-0.03); Mean Corpuscular Hemoglobin 26.6 pg (27.0-33.0); PLT ABN DIST 1; SCAN SMEAR FLAG 1
[2022-08-21 06:31] LABS: Eosinophils Absolute Auto 0.1 X10*3/uL (0.0-0.4); Eosinophils Percent Auto 1.3 % (0-4); Hematocrit 30.8 % (42.0-52.0); Imm Gran Pct Auto 1.8 % (0.0-0.4); Lymphocytes Absolute Auto 1.1 X10*3/uL (1.2-4.9); Mean Corpuscular HGB Conc 33.1 g/dl (31.0-36.0); Mean Corpuscular Volume 80.4 fL (80.0-98.0); Mean Platelet Volume 13.6 fL (9.4-12.4); Monocytes Absolute Auto 0.8 X10*3/uL (0.1-1.2); Monocytes Percent Auto 10.5 % (2-11); Neutrophils Absolute Auto 5.8 x10*3/uL (2.0-8.3); Red Blood Count 3.83 X10*6/uL (4.60-5.80); Red Cell Distribution Width 14.9 % (11.0-16.0)
[2022-08-21 06:34] LABS: Platelet Count 115 X10*3/uL (160-400); White Blood Count 8.1 X10*3/uL (4.8-10.8)
[2022-08-21 06:35] LABS: MANUAL DIFF FLAG NO
[2022-08-21] MEDS: Omeprazole 20 MG CAPSULE.DR PO (06:35)
[2022-08-21 07:11] LABS: Anion Gap 17 (12-20); Blood Urea Nitrogen 21 mg/dL (9-16); Calcium 8.3 mg/dL (8.4-10.2); Carbon Dioxide 21 mmol/L (22-29); Chloride 110 mmol/L (96-108); Creatinine Clr Calc Pharmacy 66.8; Estimated Glomerular Filt Rate > 60; Glucose Random 112 mg/dL (60-115); Potassium 3.5 mmol/L (3.3-5.1); Sodium 144 mmol/L (135-145)
--- NOTE | 2022-08-21 07:18 | P.DS_ITS ---
DS: Providers Provider Date of Service: 08/21/22 Date of admission: 08/18/22 17:53 Primary care physician: Unknown Physician Consults: 08/18/22 17:52 Consult to Gastroenterology Routine Consulting Provider: Arlet Galeana Reason for consultation: esophagitis Has provider been notified: No Consult to General Surgery Routine Consulting Provider: Jesus Ortega Reason for consultation: Acute cholecystitis Has provider been notified: No DS: Diagnosis Discharge Diagnosis (1) Pneumonia: Status: Acute (2) Acute cholecystitis: Status: Acute DS: Summary Hospital Course Hospital Course: 76-year-old male with past medical history of diabetes, CAD, asthma, HTN, GI bleed, presented to the hospital with complaints of poor p.o. intake, nausea vomiting, and abdominal pain. Patient was also found to be hypoxic. Imaging done showed evidence of acute cholecystitis, cholelithiasis, as well as possible pneumonia. Patient was conservatively treated with IV antibiotics, patient was evaluated by surgery, he had significant improvement of abdominal pain, was tolerating p.o. intake on regular diet. At this time patient did not require and there was no indication for surgery, we will continue antibiotics by p.o. for another 7 days, to cover both acute cholecystitis as well as pneumonia, and recommend follow-up with General surgery outpatient. Patient's hypoxia also completely resolved and patient is 95% on room air. Recommend low-fat diet, follow-up with PCP as well as outpatient general surgery. Time Spent with Patient Time attestation: Total time spent providing and/or coordinating discharge services: Discharge coordination time: Greater than 30 minutes Quality: Safe Use of Opioids Does Pt have an Active Cancer Diagnosis on the Problem List?: No Quality: Stroke Does the patient have a stroke diagnosis?: No Physical Exam Vital Signs: Vital Signs: Last Vital Signs Temp 98.7 F 08/21/22 03:34 Pulse 83 08/21/22 03:34 Resp 16 08/21/22 03:34 BP 134/71 08/21/22 03:34 Pulse Ox 94 08/21/22 03:34 O2 Del Method 08/21/22 03:34 O2 Flow Rate 3.0 08/19/22 03:20 Oxygen Flow Rate 3 08/18/22 13:11 BMI result Body Mass Index 22.4 DS: Data Data Completed and Pending Completed studies during hospitalization [Text1]: Procedures Excision of Ileum, Via Natural or Artificial Opening Endoscopic, Diagnostic (02/15/21) Inspection of Upper Intestinal Tract, Via Natural or Artificial Opening Endoscopic (02/15/21) Labs on day of discharge: Laboratory Results - last 24 hr 08/20/22 08/20/22 08/20/22 07:32 08:09 08:09 WBC RBC Hgb Hct MCV MCH MCHC RDW Plt Count MPV Immature Gran % (Auto) Neut % (Auto) Lymph % (Auto) [place] % (Auto) Eos % (Auto) Baso % (Auto) Lymph # (Auto) [place] # (Auto) Eos # (Auto) Baso # (Auto) Abs Immat Gran (auto) Absolute Neuts (auto) Absolute Nucleated RBC Nucleated RBC % (auto) Sodium Potassium Chloride Carbon Dioxide Anion Gap BUN Creatinine Estim Creat Clear Calc Estimated GFR POC Glucose 113 Random Glucose Calcium Ferritin 324 H Vitamin B12 340 Folate 11.5 Stool Occult Blood 08/20/22 08/20/22 08/20/22 11:08 15:25 17:53 WBC RBC Hgb Hct MCV MCH MCHC RDW Plt Count MPV Immature Gran % (Auto) Neut % (Auto) Lymph % (Auto) [place] % (Auto) Eos % (Auto) Baso % (Auto) Lymph # (Auto) [place] # (Auto) Eos # (Auto) Baso # (Auto) Abs Immat Gran (auto) Absolute Neuts (auto) Absolute Nucleated RBC Nucleated RBC % (auto) Sodium Potassium Chloride Carbon Dioxide Anion Gap BUN Creatinine Estim Creat Clear Calc Estimated GFR POC Glucose 113 148 H Random Glucose Calcium Ferritin Vitamin B12 Folate Stool Occult Blood NEGATIVE 08/20/22 08/21/22 08/21/22 19:31 05:34 05:34 WBC 8.1 RBC 3.83 L Hgb 10.2 L Hct 30.8 L MCV 80.4 MCH 26.6 L MCHC 33.1 RDW 14.9 Plt Count 115 L D MPV 13.6 H Immature Gran % (Auto) 1.8 H Neut % (Auto) 72.0 Lymph % (Auto) 14.0 L [place] % (Auto) 10.5 Eos % (Auto) 1.3 Baso % (Auto) 0.4 Lymph # (Auto) 1.1 L [place] # (Auto) 0.8 Eos # (Auto) 0.1 Baso # (Auto) 0.0 Abs Immat Gran (auto) 0.14 H Absolute Neuts (auto) 5.8 Absolute Nucleated RBC 0.000 Nucleated RBC % (auto) 0.0 Sodium 144 Potassium 3.5 Chloride 110 H Carbon Dioxide 21 L Anion Gap 17 BUN 21 H Creatinine 0.90 Estim Creat Clear Calc 66.8 Estimated GFR > 60 POC Glucose 159 H Random Glucose 112 Calcium 8.3 L Ferritin Vitamin B12 Folate Stool Occult Blood Preliminary micro results at discharge 08/18/22 13:45 Blood Culture - Preliminary Blood - Venous No growth after 48 hours. 08/18/22 13:30 Blood Culture - Preliminary Blood - Venous No growth after 48 hours. Discharge Plan Discharge Anticipated Discharge Date/Time: 08/21/22 07:02 Patient Disposition: Home, Self-Care Discharge Diagnosis: Acute cholecystitis, Pneumonia, Esophagitis Referrals: Arlet Galeana MD [Physician] - 1 Week Jesus Ortega MD [Physician] - 1 Week Physician,Magdi Arguello [Primary Care Provider] - 1 Week Discharge Medications: New levofloxacin 750 mg tablet 750 mg PO Q24H 7 Days Qty: 7 0RF metronidazole 500 mg tablet 500 mg PO Q8H 7 Days Qty: 21 0RF Continued clopidogrel [Plavix] 75 mg tablet 75 mg PO DAILY Qty: 90 2RF losartan 50 mg tablet 1 tab PO DAILY albuterol sulfate 2.5 mg /3 mL (0.083 %) solution for nebulization 1 vial inhalation QID PRN (Reason: Wheezing) allopurinol 300 mg tablet 1 tab PO DAILY loratadine 10 mg tablet 1 tab PO DAILY PRN (Reason: Allergic Symptoms) cholecalciferol (vitamin D3) 50 mcg (2,000 unit) capsule 1 cap PO DAILY omeprazole magnesium [Prilosec OTC] 20 mg tablet,delayed release (DR/EC) 20 mg PO BID Qty: 60 0RF atorvastatin 80 mg tablet 1 tab PO BEDTIME trazodone 50 mg tablet 1 tab PO BEDTIME amlodipine 2.5 mg tablet 1 tab PO QPM tamsulosin 0.4 mg capsule 1 cap PO QPM gabapentin 100 mg capsule 1 cap PO TID atenolol 50 mg tablet 1 tab PO DAILY Discharge Orders: Discharge Order (Routine); Ordered 08/21/22 Ordered By: Jenna Ellison Diet: Low fat, low cholesterol Activity on Discharge: As tolerated Stand Alone Forms: Patient Portal Discharge page Care Plan Goals: you were admitted for management of cholecystitis and pneumonia which both have significantly improved. Please continue antibiotics for 7 more days. please make sure to follow up with surgery and gastroenterology outpatient for further management of op surgical intervention of cholecytitis with surgery and esophagitis with GI Health Concerns: Avoid fatty foods recurrent pain and cholecystitis Plan of Treatment: Continue antibiotics follow op with PCP, GI and general surgery Assessment: admitted for the management of acute cholecystitis and pneumonia with improvement of symptoms. Please follow up with GI and general surgery as above
[2022-08-21 07:55] LABS: Glucose, Whole Blood 119 mg/dL (60-115)
[2022-08-21 08:00] VITALS: BP 147/71; PULSE 72; RESP 18; TEMP 37; O2SAT 93
[2022-08-21] MEDS: atenoloL 25 MG TABLET PO (08:09)
[2022-08-21] MEDS: Gabapentin 100 MG CAPSULE PO (08:09)
--- NOTE | 2022-08-21 08:32 | MHC.CM.PN ---
PT TO DC HOME TODAY WITH NO SERVICES FAMILY TO TRANSPORT
--- NOTE | 2022-08-23 08:59 | MHC.CDI.RETR ---
Retrospective Query PHYSICIAN'S DOCUMENTATION REQUEST Date of Query: 08/23/22 0900 Patient Name: Jah Chua Admit Date: 08/18/22 Dear Doctor, A review of the medical record indicates additional documentation may be needed. Please review below and update the documentation accordingly. Clinical Indicators: Consistency and clarity of a diagnosis documented: Risk Factors/Clinical Indicators/Treatments H&P: 08/18 - Sepsis 2nd to cholecystitis as well as pneumonia. Tachypneic, leukocytosis, hypotensive Temp 101.0 WBC 14.1 HR 123 RR 27 BP 89/52 PN: Severe sepsis due to acute cholecystitis, present on arrival. IV antibiotics, bp improved after fluids. Based on the above, could you clarify in the Progress Notes the appropriate diagnosis, if significant, that supports the above abnormalities and additional evaluation, monitoring, and/or treatment rendered: Severe sepsis due to acute cholecystitis present on arrival Sepsis due to acute cholecystitis present on arrival Other (please specify) Unable to determine Use of terms such as suspected, likely, concern for, or probable (associated with a specific diagnosis that is being evaluated, monitored, or treated as if it exists) are acceptable and can be coded in the inpatient setting, when documented at the time of discharge. Thank you, Hope Yip [facility], [facility] Extension: [phone] Please use your independent medical judgment in providing your response. THIS QUERY IS PART OF THE PERMANENT MEDICAL RECORD
== END 2022-08-21 13:59 | disposition home or self-care (01) | DRG 871 ==
LOC: HO.ED 13:44 → HO.EDOVER 17:59 → HO.S3 08-19 05:49
PROVIDERS: Family Medicine; Physician Assistant; Admitting Provider Internal Medicine; Emergency Provider Emergency Medicine; PCP Internal Medicine; Visit Provider Internal Medicine
DX: A41.9 Sepsis, unspecified organism (principal); J18.9 Pneumonia, unspecified organism; J96.01 Acute respiratory failure with hypoxia; K81.0 Acute cholecystitis; N17.9 Acute kidney failure, unspecified; R65.20 Severe sepsis without septic shock; I10 Essential (primary) hypertension; R91.1 Solitary pulmonary nodule; E87.6 Hypokalemia; D69.6 Thrombocytopenia, unspecified; K20.90 Esophagitis, unspecified without bleeding; I25.10 Atherosclerotic heart disease of native coronary artery without angina pectoris; I71.40 Abdominal aortic aneurysm, without rupture, unspecified; M10.9 Gout, unspecified; Z20.822 Contact with and (suspected) exposure to COVID-19; Z79.02 Long term (current) use of antithrombotics/antiplatelets; Z79.899 Other long term (current) drug therapy
CPT/HCPCS: 0241U; 36415; 70450; 70490; 71045; 71250; 74176; 80048; 80053; 81001; 82272; 82607; 82728; 82746; 82947; 83605; 83880; 84484; 85007; 85025; 85027; 85610; 85730; 87040; 87635; 93005; 99285; J0456; J0696

== ENCOUNTER 2022-08-29 12:40 | Day surgery (SDC) | payer OTHER, SELFPAY ==
--- NOTE | 2022-08-26 08:43 | P.CONAN_ITS ---
Documented by User: Louise Frederick NP 08/26/22 08:58 HPI - Anesthesia Eval Consult details Narrative: 76yo M for Upper Endoscopy [facility] [place] 08/18/22-08/21/22 for acute cholecystitis, cholelithiasis, as well as possible pneumonia.? Patient was conservatively treated with IV antibiotics, patient was evaluated by surgery, he had significant improvement of abdominal pain, was tolerating p.o. intake on regular diet.? At this time patient did not require and there was no indication for surgery, we will continue antibiotics by p.o. for another 7 days, to cover both acute cholecystitis as well as pneumonia, and recommend follow-up with General surgery outpatient. Also recommended urgent GI f/u d/t abnormal CT of esophagus Plavix for CAD, PVD PMFSH Active Problems Active Problems: All Active Problems (Updated 08/18/22 @ 19:26 by APOLINAR Springer) Pneumonia (Acute) Acute cholecystitis (Acute) Lung nodule (Acute) Acute respiratory failure with hypoxia (Acute) FLY (acute kidney injury) (Acute) Hypokalemia (Acute) Sepsis (Acute) Esophagitis (Acute) Community acquired pneumonia (Acute) Acute cholecystitis (Acute) Hemorrhage of gastrointestinal tract (Acute) Essential hypertension (Acute) Type 2 diabetes mellitus with unspecified complications (Acute) Abdominal aortic aneurysm without rupture (Acute) Atherosclerotic cardiovascular disease (Acute) Esophagitis (Acute) CAD (coronary artery disease) (Acute) Asthma (Acute) Past Medical History Medical History Abdominal aortic aneurysm without rupture Acute cholecystitis Acute cholecystitis Asthma Atherosclerotic cardiovascular disease CAD (coronary artery disease) Diabetes Esophagitis Essential hypertension Gout Hemorrhage of gastrointestinal tract Hypertension Lung nodule Type 2 diabetes mellitus with unspecified complications Family History Family history of problems with anesthesia: No Surgical History Surgical History Hernia History of cardiac catheterization History of heart artery stent History of Problems with Anesthesia: No Social History Social History Household Members: None Household Members Other:: 1 Housing: Apartment Do you presently have visiting nurse or other home services: No Alcohol intake: current Alcohol intake frequency: does not drink Patient Tobacco Use Status: Never used Tobacco Second Hand Smoke Exposure: No Use of substances other than those prescribed or required for medical reasons: No Are you DNR?: No Advance Directives: Yes Advance Directives on File: Yes Advance Directives Date on File: 02/15/21 service: No Current occupational status: retired Meds Allergies Allergy/AdvReac Type Severity Reaction Status Date / Time No Known Allergies Allergy Mild NOT Verified 05/26/22 21:32 APPLICABLE Home Medications Medication Instructions Recorded Confirmed Last Taken Type albuterol sulfate 2.5 mg/3 mL 1 vial inhalation QID PRN Wheezing 02/15/21 08/18/22 1 Day Ago History (0.083 %) solution for nebulization ~02/14/21 allopurinol 300 mg tablet 1 tab PO DAILY 02/15/21 08/18/22 1 Day Ago History ~02/14/21 cholecalciferol (vitamin D3) 50 1 cap PO DAILY 02/15/21 08/18/22 1 Day Ago History mcg (2,000 unit) capsule ~02/14/21 loratadine 10 mg tablet 1 tab PO DAILY PRN Allergic 02/15/21 08/18/22 1 Day Ago History Symptoms ~02/14/21 losartan 50 mg tablet 1 tab PO DAILY 02/15/21 08/18/22 1 Day Ago History ~02/14/21 amlodipine 2.5 mg tablet 1 tab PO QPM 08/18/22 08/18/22 Unknown History atenolol 50 mg tablet 1 tab PO DAILY 08/18/22 08/18/22 Unknown History atorvastatin 80 mg tablet 1 tab PO BEDTIME 08/18/22 08/18/22 Unknown History gabapentin 100 mg capsule 1 cap PO TID 08/18/22 08/18/22 Unknown History tamsulosin 0.4 mg capsule 1 cap PO QPM 08/18/22 08/18/22 Unknown History trazodone 50 mg tablet 1 tab PO BEDTIME 08/18/22 08/18/22 Unknown History Exam Exam Date and Time: August 26, 2022 0843 Pertinent Lab Results Pertinent Lab Results: Laboratory Tests 08/21/22 08/21/22 05:34 05:34 WBC 8.1 Hgb 10.2 L Hct 30.8 L Plt Count 115 L D Sodium 144 Potassium 3.5 Chloride 110 H Carbon Dioxide 21 L BUN 21 H Creatinine 0.90 Narrative Narrative: EKG 07/2022 Vent. Rate : 097 BPM ? ? Atrial Rate : 097 BPM ?? P-R Int : 138 ms? QRS Dur : 098 ms ? ? QT Int : 354 ms ? ? ? P-R-T Axes : 040 006 076 degrees ?? QTc Int : 449 ms ? Normal sinus rhythm Normal ECG When compared with ECG of 26-MAY-2022 21:21, No significant change was found CT soft tissue neck wo IV con 07/2022 IMPRESSION: ? 1.? Somewhat limited evaluation of the soft tissues of the neck secondary to motion degradation and in the absence of intravenous contrast. No imaging findings of infection involving the soft tissues of the neck. ? 2.? Circumferential wall thickening of the upper thoracic esophagus. Correlate clinically for esophagitis. Assessment and Plan Assessment Anesthesia Assessment: Chart Reviewed Final Anesthetic Review Family History of Problems with Anesthesia: No History of Problems with Anesthesia: No Documented by User: Christine Jorgensen MD 08/29/22 13:26 [facility] Past Medical History Medical History Abdominal aortic aneurysm without rupture Acute cholecystitis Acute cholecystitis Asthma Atherosclerotic cardiovascular disease CAD (coronary artery disease) Diabetes Esophagitis Essential hypertension Gout Hemorrhage of gastrointestinal tract Hypertension Lung nodule Type 2 diabetes mellitus with unspecified complications Surgical History Surgical History Hernia History of cardiac catheterization History of heart artery stent History of Problems with Anesthesia: No Social History Social History Household Members: None Household Members Other:: 1 Housing: Apartment Do you presently have visiting nurse or other home services: No Alcohol intake: current Alcohol intake frequency: does not drink Patient Tobacco Use Status: Never used Tobacco Second Hand Smoke Exposure: No Use of substances other than those prescribed or required for medical reasons: No Are you DNR?: No Advance Directives: Yes Advance Directives on File: Yes Advance Directives Date on File: 02/15/21 service: No Current occupational status: retired Meds Allergies Allergy/AdvReac Type Severity Reaction Status Date / Time No Known Allergies Allergy Mild NOT Verified 05/26/22 21:32 APPLICABLE Home Medications Medication Instructions Recorded Confirmed Last Taken Type albuterol sulfate 2.5 mg/3 mL 1 vial inhalation QID PRN Wheezing 02/15/21 08/18/22 1 Day Ago History (0.083 %) solution for nebulization ~02/14/21 allopurinol 300 mg tablet 1 tab PO DAILY 02/15/21 08/18/22 1 Day Ago History ~02/14/21 cholecalciferol (vitamin D3) 50 1 cap PO DAILY 02/15/21 08/18/22 1 Day Ago History mcg (2,000 unit) capsule ~02/14/21 loratadine 10 mg tablet 1 tab PO DAILY PRN Allergic 02/15/21 08/18/22 1 Day Ago History Symptoms ~02/14/21 losartan 50 mg tablet 1 tab PO DAILY 02/15/21 08/18/22 1 Day Ago History ~02/14/21 amlodipine 2.5 mg tablet 1 tab PO QPM 08/18/22 08/18/22 Unknown History atenolol 50 mg tablet 1 tab PO DAILY 08/18/22 08/18/22 Unknown History atorvastatin 80 mg tablet 1 tab PO BEDTIME 08/18/22 08/18/22 Unknown History gabapentin 100 mg capsule 1 cap PO TID 08/18/22 08/18/22 Unknown History tamsulosin 0.4 mg capsule 1 cap PO QPM 08/18/22 08/18/22 Unknown History trazodone 50 mg tablet 1 tab PO BEDTIME 08/18/22 08/18/22 Unknown History Exam Airway Mallampati Class: II TM Dist: >3cm Neck ROM: Full Denture: Upper Loose/Missing/Broken Teeth: Yes and Upper Heart: RRR Lungs: CTA Assessment and Plan Assessment Anesthesia Assessment: Anesthesia Plan Discussed Final Anesthetic Review History of Problems with Anesthesia: No NPO: Yes ASA Class: III Final Preanesthetic Review: Meds/Allgs Chart Reviewed, Consent Obtained/Reviewed and Anes Risks/Benef Reviewed Patient Risk: Intermediate Procedure Risk: Intermediate Anesthetic Plan Anesthetic Plan: MAC: Disposition: Standard PACU
[2022-08-29 06:16] VITALS: BMI 22.0
[2022-08-29 12:57] VITALS: BP 102/56; PULSE 77; RESP 14; TEMP 36.1; O2SAT 97
--- NOTE | 2022-08-29 13:17 | MHC.SHP ---
Pre-Procedural Eval Section A Date of Service: 08/29/22 The patient is an INPATIENT: No Changes since office visit: Yes Patient answered all questions; No Cold of Flu in the past 2 weeks, No New Medical Problems and No Changes in Medication The History & Physical has been completed within 30 days and I have reviewed it.: Yes Section B Chief Complaint: Abnormal findings on diagnostic imaging of other Allergies: Allergies Allergy/AdvReac Type Severity Reaction Status Date / Time No Known Allergies Allergy Mild NOT Verified 05/26/22 21:32 APPLICABLE Plan I have reviewed the history and physical and performed a pertinent physical examination on my patient. No changes have occurred unless specified.
[2022-08-29] MEDS: Lactated Ringers 1,000 ML 100 ML IVCONT (13:19)
[2022-08-29 13:23] LABS: Glucose, Whole Blood 197 mg/dL (60-115)
--- NOTE | 2022-08-29 13:28 | PM.OP ---
Brief Operative Note Date of Service: 08/29/22 Pre-op diagnosis: abnormal CT scan of the esophagus Post-op diagnosis: other ( gastritis, duodenal diverticulum) Procedure: UPPER ENDOSCOPY WITH BIOPSIES Surgeon: Arlet Galeana MD Anesthesia: MAC Was an Talent Development Analyst used for this Procedure?: Yes Talent Development Analyst: Abi Ortiz Estimated blood loss (mL): 0 Pathology: other (A. gastric antrum bxs, R/O H. pylori) Condition: stable Disposition: PACU
--- NOTE | 2022-08-29 13:29 | W.PM.OPN ---
Operative Note Operative Note Date of Service: 08/29/22 Narrative: Pre-op diagnosis: abnormal CT scan of the esophagus Post-op diagnosis:?other ( gastritis,? duodenal diverticulum) Surgeon: Arlet Galeana MD Anesthesia:?MAC FLEXIBLE TRANSORAL UPPER GASTROINTESTINAL ENDOSCOPY WITH BIOPSIES Consent: Indications for the procedure and potential complications of bleeding, perforation, reaction to medications and missed diagnosis were discussed with the patient and informed consent was obtained. Instrument: Olympus GIF H 190 mid size upper endoscope Monitoring: Vital signs and clinical assessment, continuous EKG monitoring, Pulse oximetry, Carbon Dioxide monitoring and blood pressure monitoring were done throughout the procedure. Procedure: The patient was placed in the left lateral decubitis position and pre-procedure medications were administered and a bite block was placed. The endoscope was inserted into the mouth and advanced under direct vision to the third part of duodenum. A careful inspection was made as the upper endoscope was withdrawn including a retroflexed examination of the proximal stomach; Findings and interventions are described below. Findings: Larynx: Normal Esophagus: mildly tortuous esophagus with increased tertiary contractions without stricture or ring. mucosa of the proximal esophagus appeared normal. GE junction at 38 cms. No esophagitis or Santillan's. Stomach: Mild diffuse gastric erythema. Biopsies were obtained. Grade 2 flap valve on retroflexed examination of the cardia. Duodenum: Normal bulb. 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 mucosa of the proximal esophagus appeared normal. GE junction at 38 cms. No esophagitis or Santillan's. 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 She is very concerned that patient is not eating and is loosing weight and not doing well She would like the pt to proceed with Lap Kavya MALIHA She was advised to contact the surgery clinic and message sent to Dr Harmon.
[2022-08-29 13:52] VITALS: BP 82/48; PULSE 82; RESP 16; TEMP 36.1; O2SAT 97
[2022-08-29 14:07] VITALS: BP 94/56; PULSE 82; RESP 16; O2SAT 97
[2022-08-29 14:22] VITALS: BP 97/56; PULSE 82; RESP 16; O2SAT 94
[2022-08-29 14:35] VITALS: BP 96/66; PULSE 83; RESP 16; TEMP 36.1; O2SAT 96
== END 2022-08-29 15:27 | disposition home or self-care (01) ==
PROVIDERS: PCP Internal Medicine; Visit Provider Internal Medicine Gastroenterology
PROC: 0DJ08ZZ Inspection of Upper Intestinal Tract, Via Natural or Artificial Opening Endoscopic (ICD-10-PCS; CPT 43235; principal; 2022-08-29 13:50)
DX: K22.89 Other specified disease of esophagus (principal); K29.50 Unspecified chronic gastritis without bleeding; K57.10 Diverticulosis of small intestine without perforation or abscess without bleeding; J45.909 Unspecified asthma, uncomplicated; I25.10 Atherosclerotic heart disease of native coronary artery without angina pectoris; Z98.61 Coronary angioplasty status; I10 Essential (primary) hypertension; I71.40 Abdominal aortic aneurysm, without rupture, unspecified; E11.9 Type 2 diabetes mellitus without complications; Z79.82 Long term (current) use of aspirin; Z79.4 Long term (current) use of insulin; Z79.899 Other long term (current) drug therapy
CPT/HCPCS: 43239; 82947; 88305; 88342

== ENCOUNTER → 2022-09-13 13:02 | Outpatient (BNVA) | payer OTHER, SELFPAY | PROVIDERS: PCP Internal Medicine; Visit Provider Surgery | DX: K80.20 Calculus of gallbladder without cholecystitis without obstruction (principal) | CPT/HCPCS: 99212 ==

== ENCOUNTER → 2022-10-03 14:45 | Outpatient (BNVA) | payer OTHER, SELFPAY | PROVIDERS: PCP Nurse Practitioner Family; Visit Provider Surgery | DX: K80.20 Calculus of gallbladder without cholecystitis without obstruction (principal) | CPT/HCPCS: 99212 ==

== ENCOUNTER 2023-07-27 12:00 | Outpatient (REF) | payer OTHER, SELFPAY ==
[2023-07-27 13:46] LABS: Blood Urea Nitrogen 19 mg/dL (9-16); Estimated Glomerular Filt Rate > 60
== END 2023-07-27 12:01 | disposition home or self-care (01) ==
LOC: HO.HHCL 12:00
PROVIDERS: Visit Provider Nurse Practitioner Adult Health
DX: I10 Essential (primary) hypertension (principal)
CPT/HCPCS: 36415; 82565; 84520

== ENCOUNTER 2024-01-29 10:05 | Outpatient (REF) | payer OTHER, SELFPAY ==
[2024-01-29 11:49] LABS: INTERNATIONAL NORM RATIO 0.9 (0.9-1.1); Prothrombin Time 11.5 SEC (11.1-13.3)
[2024-01-29 12:27] LABS: Alanine Aminotransferase 26 U/L (0-40); Albumin Level 4.3 g/dL (3.5-5.0); Alkaline Phosphatase 140 U/L (39-117); Anion Gap 12 (12-20); Aspartate Amino Transferase 21 U/L (5-37); Bilirubin Total 0.6 mg/dL (0.0-1.0); Blood Urea Nitrogen 18 mg/dL (9-16); Calcium 9.6 mg/dL (8.4-10.2); Carbon Dioxide 27 mmol/L (22-29); Chloride 108 mmol/L (96-108); Cholesterol 170 mg/dL (<200); Estimated Glomerular Filt Rate 59; Glucose Random 184 mg/dL (60-115); HDL Cholesterol 36 mg/dL (>40); LDL Cholesterol Calculated 83 mg/dL (<100); Potassium 3.9 mmol/L (3.3-5.1); Sodium 143 mmol/L (135-145); Total Protein 7.3 g/dL (6.5-8.0); Triglycerides 258 mg/dL (<150); Uric Acid 2.7 mg/dL (3.4-7.0)
[2024-01-29 13:00] LABS: ~Hepatitis C Antibody Nonreactive (Nonreactive)
== END 2024-01-29 10:06 | disposition home or self-care (01) ==
LOC: HO.HHCL 10:05
PROVIDERS: Visit Provider Nurse Practitioner Family
DX: Z00.00 Encounter for general adult medical examination without abnormal findings (principal); E08.22 Diabetes mellitus due to underlying condition with diabetic chronic kidney disease; N18.30 Chronic kidney disease, stage 3 unspecified; M10.00 Idiopathic gout, unspecified site
CPT/HCPCS: 36415; 80053; 80061; 84550; 85610; 86803

== ENCOUNTER 2024-11-19 10:53 | Outpatient (REF) | payer OTHER, SELFPAY ==
--- OUTSIDE RECORDS SUMMARY | 2024-11-19 12:02 | XMS_ITS | Clinical Summary ---
Author Organization [employer] Address [address] [facility] 7t [place] [address] Care Team Providers Care Workers Compensation Administrator Name Role Phone Name, Rik GUERRERO Primary Care Provider Allergies No known active allergies Medications metFORMIN (Glucophage) 500 MG tablet Take 1 tablet (500 mg) by mouth at bedtime for 7 days, THEN 1 tablet (500 mg) with breakfast and with evening meal. 187 tablet 2 03/01/20 23 Active fluticasone (Flonase) 50 MCG/ACT nasal sprayIndications: Nasal congestion INHALE 1-2 SPRAYS IN EACH NOSTRIL EVERY MORNING 48 g 04/21/20 23 Active albuterol (Ventolin HFA) 108 (90 Base) MCG/ACT inhaler Inhale 4 times a day. 12/23/19 22 Active allopurinol (Zyloprim) 300 MG tablet Take 1 tablet by mouth in the morning. Active aspirin 81 MG EC tablet Take 81 mg by mouth. 09/27/20 13 Active FREESTYLE LITE test stripIndications: Type 2 diabetes mellitus without complication, unspecified whether penitentiary insulin use ([facility]) TEST BLOOD SUGAR THREE TIMES DAILY 100 strip 11 12/06/19 24 Active TRUEplus Lancets 33G miscIndications:T ype 2 diabetes mellitus without complication, unspecified whether termite treater helper insulin use ([facility]) TEST BLOOD SUGAR THREE TIMES DAILY 100 each 12/06/19 24 Active nutritional drink (Boost) liquid Take 237 mL by mouth if needed in the morning, at noon, and at bedtime (nutritional supplement). 237 mL 11 12/26/19 24 025 Active acetaminophen (Tylenol) 500 MG tablet Take 1 tablet (500 mg) by mouth every 6 (six) hours if needed for mild pain for up to 20 doses. 20 tablet 01/18/20 24 Active dulaglutide (Trulicity) 1.5 MG/0.5ML solution pen-injector Inject 1.5 mg under the skin 1 (one) time per week. 4 each 01/29/20 24 Active rosuvastatin (Crestor) 40 MG tablet Take 1 tablet (40 mg) by mouth in the morning. 30 tablet 11 01/29/20 24 025 Active cholecalciferol (D3 Super Strength) 50 MCG (1999) capsuleIndication s:Vitamin D insufficiency TAKE 1 CAPSULE BY MOUTH EVERY MORNING 90 capsule 3 01/30/20 24 Active amLODIPine (Norvasc) 2.5 MG tablet TAKE 1 TABLET BY MOUTH EVERY EVENING 90 tablet 3 03/27/20 24 Active traZODone (Desyrel) 50 MG tabletIndications :Primary insomnia TAKE 1 TABLET BY MOUTH AT BEDTIME 90 tablet 1 04/26/20 24 Active glucose blood test strip TEST BLOOD SUGAR 3 TIMES A DAY Active allopurinol (Zyloprim) 300 MG tablet TAKE 1 TABLET BY MOUTH EVERY MORNING 30 tablet 5 06/17/20 24 Active clopidogrel (Plavix) 75 MG tablet TAKE 1 TABLET BY MOUTH EVERY MORNING 90 tablet 1 08/14/20 24 Active losartan (Cozaar) 100 MG tablet TAKE 1 TABLET BY MOUTH EVERY MORNING 90 tablet 1 08/14/20 24 Active montelukast (Singulair) 10 MG tablet TAKE 1 TABLET BY MOUTH AT BEDTIME 90 tablet 1 08/14/20 24 Active Blood Glucose Monitoring Suppl (FreeStyle Honor Lite) w/Device kitIndications: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 mellitus (CMS/HCC) Use to test blood sugar 3 times daily 1 kit 09/09/20 24 Active pantoprazole (ProtoNix) 20 MG EC tablet TAKE 1 TABLET BY MOUTH EVERY MORNING 90 tablet 09/18/20 24 Active gabapentin (Neurontin) 100 MG capsuleIndication s:Polyneuropathy, unspecified TAKE 1 CAPSULE THREE TIMES DAILY IN THE MORNING, EVENING, AND BEDTIME 90 capsule 3 10/18/20 24 Active atenolol (Tenormin) 50 MG tabletIndications :Primary hypertension TAKE 1 TABLET BY MOUTH EVERY MORNING 90 tablet 1 11/18/19 25 Active loratadine (Claritin) 10 MG tablet TAKE 1 TABLET BY MOUTH EVERY MORNING NEEDED 90 tablet 1 11/18/19 25 Active tamsulosin (Flomax) 0.4 MG 24 hr capsule TAKE 1 CAPSULE BY MOUTH EVERY EVENING 30 MINUTES AFTER FOOD 90 capsule 1 11/18/19 25 Active loratadine (Claritin) 10 MG tablet TAKE 1 TABLET BY MOUTH EVERY MORNING NEEDED 90 tablet 1 04/26/20 24 025 Discontinued tamsulosin (Flomax) 0.4 MG 24 hr capsule TAKE 1 CAPSULE BY MOUTH EVERY EVENING 30 MINUTES DESPUES DE LA MISMA CADA JON. 90 capsule 1 04/26/20 24 025 Discontinued atenolol (Tenormin) 50 MG tabletIndications :Primary hypertension TAKE 1 TABLET BY MOUTH EVERY MORNING 90 tablet 1 04/26/20 025 Discontinued Active Problems Problem Noted Date Diagnosed Date Dental abscess 01/18/2024 Open fracture of tooth 01/18/2024 Decrease in appetite 04/04/2023 Duodenal ulcer 04/04/2023 History of spinal surgery 04/04/2023 Insomnia 04/04/2023 Nasal discharge 04/04/2023 Syncope and collapse 04/04/2023 Varicose veins of lower extremity 04/04/2023 Diabetes mellitus 07/22/2021 Proteinuria 07/22/2021 Coronary artery disease invo lving torres martinez coronary artery of torres martinez heart without angina pectoris 04/04/2019 Diabetic peripheral neuropat hy associated with type 2 diabetes mellitus 02/20/2018 Polyneuropathy associated with underlying diseas e 02/20/2018 Mixed hyperlipidemia 03/16/2016 Type 2 diabetes mellitus without complication Organic impotence 08/12/2015 Abdominal aortic aneurysm without rupture 2014 Chronic gouty arthritis 08/12/2015 Dysthymia 08/12/2015 Gastroesophageal reflux disease 08/12/2015 Primary gout 08/12/2015 Hypertension 08/12/2015 Osteoarthritis 08/12/2015 Vitamin D deficiency 08/12/2015 Encounters Date Type Department Care Team Description 11/19/2024 10:15 AM EST Office Visit [facility] [address] [place] [address] Name, MD Rik Diabetes mellitus due to underlying condition with stage 3 chronic kidney disease, without long-term current use of insulin, unspecified whether stage 3a or 3b CKD (CMS/HCC) (Primary Dx); Coronary artery disease involving torres martinez coronary artery of torres martinez heart without angina pectoris; Vaccination refused by patient 11/19/2024 Travel 11/18/2024 Telephone [facility] [address] [place] [address] Gabriel Luna MA chart prep 11/17/2024 Refill [facility] [address] [place] [address] Olivia Martinez FNP Primary hypertension 11/07/2024 Patient Outreach [facility] [address] [place] [address] Rik Molina MD Pre-visit Planning ((Unable to reach for PVP screening, LVM)) 10/18/2024 Refill [facility] [address] [place] [address] Olivia Martinez FNP Polyneuropathy, unspecified 09/18/2024 Refill [facility] [address] [place] [phone] Olivia Martinez FNP 09/09/2024 Telephone [facility] [address] [place] [address] Rik Molina MD Communication (Pt son walked in stating his CDTM machine broke sometime last week and is requesting a new one . Pt son states pt needs it due to having to check sugar everyday .) 08/23/2024 Telephone [facility] [address] [place] [address] Gabriel Luna MA JAn recalls from Last 3 Months Immunizations Name Administration Dates Next Due TD (adult), 2 Lf tetanus tox oid, preservative free, adsorbed 10/23/2000 Tdap 01/30/2021 Family History Medical History Relation Name Comments Prostate cancer Father Alzheimer's disease Mother Breast cancer Sister Relation Name Status Comments Father Mother Sister Social History Tobacco Use Types Packs/Day Years Used Date Smoking Tobacco: Never Smokeless Tobacco: Never Tobacco Cessation:Counseling Given: Not Answered Alcohol Use Standard Drinks/Week Comments Not Currently 1 (1 standard drink = 0.6 oz pur e alcohol) once weekly Depression Answer Date Recorded Patient Health Questionnaire-9 Score 15 11/19/2024 Patient Health Questionnaire-9 Score 15 11/19/2024 Last PHQ-9: Questionnaire Data Not on file 0 11/19/2024 Housing Stability Answer Date Recorded What is your housing situation today? I have carlee davidson 08/11/[address] you li ve. Do you have problems with any of the following? None of the above 08/11/2023 Food Insecurity Answer Date Recorded Within the past 12 months, y ou worried that your food would run out before you got money to buy more: Never True 08/11/2023 Within the past 12 months,th e food you bought just didn't last and you didn't have enough money to get more: Never True Transportation Answer Date Recorded In the past 12 months, has l ack of transportation kept you from medical appts, meetings, work or from getting things needed for daily living? No 08/11/2023 Utilities Answer Date Recorded In the past 12 months, has t he electric, gas, oil or water company threatened to shut off services in your home? No 08/11/2023 Depression Answer Date Recorded Patient Health Questionnaire-2 Score 6 11/19/2024 Internet Access Answer Date Recorded Internet Access Q1 Yes 11/19/2024 Internet Access Q2 Not on file 11/19/2024 Sex and Gender Information Value Date Recorded Sex Assigned at Male 08/22/2022 10:20 AM EDT Legal Sex Male 10:20 AM EDT Gender Identity Male 08/22/2022 10:20 AM EDT Sexual Orientation Straight 08/22/2022 10 :20 AM EDT Last Filed Vital Signs Vital Sign Reading Time Taken Comments Blood Pressure 148/84 11/19/2024 10:09 AM EST Pulse 82 11/19/2024 10:09 AM EST Temperature 36.6 ??C (97.8 ??F) 11/19/2024 10:[address] Respiratory Rate 21 11/19/2024 10:09 AM EST Oxygen Saturation 97% 01/29/2024 9:17 AM EDT Inhaled Oxygen Concentration - - Weight 68.6 kg (151 lb 3.2 oz) 11/19/2024 10:09 AM EST Height 175.3 cm (5' 9 ) 11/19/2024 10:09 AM EST Body Mass Index 22.33 11/19/2024 10:09 AM EST Plan of Treatment Upcoming Encounters Date Type Department Care Team (Late st Contact Info) Description 01/22/2025 10:30 AM EDT Office Visit [facility] [address] [place] [address] Name, [place] [address] Health Maintenance Due Date Last Done Comments Dental Prophylaxis 1944 Pneumococcal Vaccine: 65+ Years (1 of 2 - PCV) 1950 Diabetes: Foot Exam 1954 Eye Exam 1954 Zoster Vaccines (1 of 2) 1994 RSV Patients and Patients Aged 60 years or older (1 - 1-dose 75+ series) 2019 Diabetes: Urine Protein Screening 08/06/2022 08/06/2021, 05/27/2021 Dental Oral Exam 01/17/2024 07/18/2023, 12/23/2008 COVID-19 Vaccine ( season) 2024 Influenza Vaccine (#1) 2024 Dental X-Ray: Bitewings 07/19/2024 07/18/20 23, 07/06/2023, 12/05/2008 Lipid Panel 01/28/2025 01/29/2024, 07/23, 05/27/2021 Diabetes: Hemoglobin A1C 02/17/2025 025, 01/29/2024, 03/01/2023, Additional history exists Depression Monitoring (PHQ-9) 05/19/2025 11/19/2024, 11/19/2024 Alcohol/Substance Use Screening 11/19/2025 11/19/2024 Depression Screening 11/19/2025 11/19/2024, 11/19/19 25 SDOH Screening 11/19/2025 11/19/2024 Tobacco Screening 11/19/2025 11/19/2024 Dental X-Ray: Full Mouth 01/18/2027 024, 07/18/2023, 12/05/2008 DTaP/Tdap/Td Vaccines (2 - Td or Tdap) 01/30/2031 01/30/2021, 10/23/2000 HIB Vaccines Aged Out No longer eligi ble based on patient's age to complete this topic HPV Vaccines Aged Out No longer eligi ble based on patient's age to complete this topic Hepatitis A Vaccines Aged Out No long er eligible based on patient's age to complete this topic Hepatitis B Vaccines Aged Out No long er eligible based on patient's age to complete this topic IPV Vaccines Aged Out No longer eligi ble based on patient's age to complete this topic Meningococcal Vaccine Aged Out No dax charity eligible based on patient's age to complete this topic RSV under 20 months Aged Out No longe r eligible based on patient's age to complete this topic Rotavirus Vaccines Aged Out No longer eligible based on patient's age to complete this topic Procedures Procedure Name Priority Date/Time Associated Diagnosis Comments POCT GLYCATED HEMOGLOBIN, TOTAL Routine 11/19/2024 10:19 AM EST Diabetes mellitus due to underlying condition with stage 3 chronic kidney disease, without long-term current use of insulin, unspecified whether stage 3a or 3b CKD (CMS/HCC) POCT GLUCOSE Routine 11/19/2024 10:19 AM EST Diabetes mellitus due to underlying condition with stage 3 chronic kidney disease, without long-term current use of insulin, unspecified whether stage 3a or 3b CKD (CMS/HCC) LIPID PANEL, STANDARD Routine 01/29/2024 9:30 AM EDT Diabetes mellitus due to underlying condition with stage 3 chronic kidney disease, without long-term current use of insulin, unspecified whether stage 3a or 3b CKD (CMS/HCC) PANORAMIC RADIOGRAPHIC IMAGE Routine 01/18/2024 11:30 AM EDT DIAGNOSTIC - DIAGNOSTIC IMAGING - INTRAORAL - COMPREHENSIVE SERIES OF RADIOGRAPHIC IMAGES Routine 07/18/2023 8:30 AM EDT Encounter for dental examination Dental caries Dental abscess COMPREHENSIVE ORAL EVALUATION - NEW OR ESTABLISHED PATIENT Routine 07/18/2023 8:30 AM EDT Encounter for dental examination Dental caries Dental abscess ALBUMIN, RANDOM URINE W/CREATININE Routine 08/06/2021 1:01 PM EDT from Last 3 Months or Most Recently Relevant to Health Maintenance Results * (ABNORMAL) POCT HGB A1C (11/19/2024 10:19 AM EST) Hemoglobin A1C 7.7(A) 4.0 - 6.0 % QC Media Lot # [id number] Lot# Expiration Date [id number] Blood 11/19/2024 10:1 9 AM EST Rik Name POINT OF CARE TEST ENTER/EDIT OR DERABLES Final Result * POCT Glucose (11/19/2024 10:19 AM EST) Glucose Blood, POC 161 60 - 200 mg/dL QC Media Lot # [id number] Lot# Expiration Date [id number] Blood Capillary blood specimen / Unknown 11/19/2024 10:19 AM EST us Rik Molina MD POINT OF CARE TEST ENTER/EDIT OR DERABLES Final Result * (ABNORMAL) Lipid Panel, Standard (01/29/2024 9:30 AM EDT) Triglycerides 258(H) <150 mg/dL [facility] Comment:Desirable Triglyceri de: less than 150 mg/dLBorderline High Triglyceride 150-199 mg/dLHigh Triglyceride: 200-499 mg/dLVery High Triglyceride: greater than or equal to 5OO mg/dL Cholesterol 170 <200 mg/dL [facility] Comment:Desirable Cholestero l: less than 200 mg/dLBorderline High Cholesterol: 200-239 mg/dLHigh Cholesterol: greater than 239 mg/dL LDL Cholesterol Calculated 83 <100 mg/dL [facility] Comment:Desirable LDL: less than 100 mg/dLNear Optimal/Above Optimal LDL: 110- 129 mg/dLBorderline High LDL: 130-159 mg/dLHigh LDL: 160-189 mg/dLVery High LDL: greater than or equal to 190 mg/dL HDL Cholesterol 36(L) >40 mg/dL [facility] Comment:Desirable HDL: great er than 40 mg/dL Note: This HDL assay may give artificially low results in patients with liver disease. Blood Venous blood specimen / Unknown 01/29/2024 9:30 AM EDT 01/29/2024 11:44 AM EDT us Olivia Martinez X [employer]EL[employer] LAB BLOOD ORDERABLES Final Resu lt Performing Organization Address [facility]/ZIP Co de Phone Number [facility] [address] [place] [address] [phone] * (ABNORMAL) ALBUMIN, RANDOM URINE W/CREATININE (08/06/2021 1:01 PM EDT) Microalbumin Urine 20.0 See Note: mg/dL [facility] Comment: Reference Range: ?? Reference Range Not established Microalb/Creat Ratio 96(H) <30 mcg/mg creat [facility] Comment: ?? The ADA defines abnormalities in albumin excretion as follows: ?? Albuminuria Category ?Result (mcg/mg creatinine) ?? Normal to Mildly increased ?? <30 Moderately increased ? 30-299 ?? Severely increased ? > OR = 300 ?? The ADA recommends that at least two of three specimens collected within a 3-6 month period be abnormal before considering a patient to be within a diagnostic category. Creatinine, Urine 208 20 - 320 mg/dL [facility] 08/06/2021 1:01 PM EDT us Fritz Tatum MD LAB URINE ORDERABLES Final Result Performing Organization Address City/[facility]/ZIP Co de Phone Number [facility] [address] from Last 3 Months or Most Recently Relevant to Health Maintenance Insurance [facility] - [facility] Care Teams Workers Compensation Administrator Relationship Specialty Start Date End Date Name, MD Rik [address] [place] [address] PCP - General Internal Medicine 06/18/24
--- OUTSIDE RECORDS SUMMARY | 2024-11-19 12:02 | XMS_ITS | Encounter Summary ---
Author Organization [employer] Address [address] [facility] [address] [place] [address] Care Team Providers Care Cleaning Team Member Name Role Phone Name, Rik GUERRERO Primary Care Provider [phone] Reason for Visit * Reason Comments Med Refill Encounter Details Date Type Department Care Team ([facility] st Contact Info) Description 11/17/2024 Refill [facility] [address] [place] [address] Olivia Martinez FNP [address] [place] [address] Primary hypertension Social History Tobacco Use Types Packs/Day Years Used Date Smoking Tobacco: Never Smokeless Tobacco: Never Alcohol Use Standard Drinks/Week Comments Not Currently [...] Orientation Straight 08/22/2022 10 :20 AM EDT documented as of this encounter Plan of Treatment Upcoming Encounters Date Type Department Care Team (Late st Contact Info) Description 01/22/2025 10:30 AM EDT Office Visit [facility] [address] [place] [phone] NameRik MD [address] [place] [phone] documented as of this encounter Visit Diagnoses Diagnosis Primary hypertension Unspecified essential hypertension documented in this encounter Additional Health Concerns Assessment Noted Time PHQ-9 Depression Total Score: 12 024 10:13 AM EDT documented as of this encounter Care Teams Cleaning Team Member Relationship Specialty Start Date End Date NameRik MD [address] [place] [id number] PCP - General Internal Medicine 06/18/24 documented as of this encounter
--- OUTSIDE RECORDS SUMMARY | 2024-11-19 12:02 | XMS_ITS | Encounter Summary ---
Author Organization [employer] Address [address] [facility] [address] [place] [address] Care Team Providers Care Kier Drier Name Role Phone Name, Rik GUERRERO Primary Care Provider [phone] Encounter Details Date Type Department Care Team (Latest Contact Info) Description 11/19/2024 Travel Social History Tobacco Use Types Packs/Day Years [...] Description 01/22/2025 10:30 AM EDT Office Visit [facility] [address] [place] [address] Name, MD Rik [address] [place] [address] documented as of this encounter Visit Diagnoses Not on filedocumented in this encounter Additional Health Concerns Assessment Noted Time PHQ-9 Depression Total Score: 15 025 10:22 AM EST documented as of this encounter Care Teams Kier Drier Relationship Specialty Start Date End Date NameRik MD [address] [place] [phone] PCP - General Internal Medicine 06/18/24 documented as of this encounter
--- OUTSIDE RECORDS SUMMARY | 2024-11-19 12:02 | XMS_ITS | Encounter Summary ---
Author Organization [employer] Address [address] [facility] 7t [place] [address] Care Team Providers Care Software Database Architect Name Role Phone Name, Rik GUERRERO Primary Care Provider [phone] Reason for Visit * Reason Comments Pre-visit Planning (Unable to reach for PVP screening, LVM) Encounter Details Date Type Department Care Team ([facility] Contact Info) Description 11/07/2024 Patient Outreach [facility] [address] [place], [place] [phone] Name, MD Rik [address] [place] [address] Pre-visit Planning ((Unable to reach for PVP screening, LVM)) Social History Tobacco Use Types Packs/Day Years Used Date Smoking Tobacco: Never Smokeless Tobacco: Never Alcohol Use Standard Drinks/Week Comments Not Currently 1 (1 standard drink = 0.6 oz pur e alcohol) once weekly Depression Answer Date Recorded Patient Health Questionnaire-9 Score 12 01/29/2024 Patient Health Questionnaire-9 Score 12 01/29/2024 Last PHQ-9: Questionnaire Data Not on file 0 01/29/2024 Housing Stability Answer Date Recorded What is [...] enough money to get more: Never True 10/ Transportation Answer Date Recorded In the past [...] Answer Date Recorded Patient Health Questionnaire-2 Score 3 01/29/2024 Sex and Gender Information Value Date Recorded Sex Assigned at Male 08/22/2022 10:20 AM EDT Legal Sex Male 10:20 AM EDT Gender Identity Male 08/22/2022 10:20 AM EDT Sexual Orientation Straight 08/22/2022 10 :20 AM EDT documented as of this encounter Progress Notes * Shelly Bradley - 11/07/2024 9:22 AM EST CC Shelly. Placed outbound call to patient to complete pre-visit planning. No answer at this time. Patient name and were not confirmed. CC left voicemail requesting return call. Direct contact information provided. documented in this encounter Plan of Treatment Upcoming Encounters Date Type Department Care Team (Late st Contact Info) Description 01/22/2025 10:30 AM EDT Office Visit [facility] [address] [place] [phone] NameRik MD [address] [place] [address] documented as of this encounter Visit Diagnoses Not on filedocumented in this encounter Additional Health Concerns Assessment Noted Time PHQ-9 Depression Total Score: 12 024 10:13 AM EDT documented as of this encounter Care Teams Software Database Architect Relationship Specialty Start Date End Date NameRik MD [address] [place] [id number] PCP - General Internal Medicine 06/18/24 documented as of this encounter
--- OUTSIDE RECORDS SUMMARY | 2024-11-19 12:02 | XMS_ITS | Encounter Summary ---
Author Organization [employer] Address [address] [facility] 7t [place] [address] Care Team Providers Care Color Finisher Name Role Phone Olivia Martinez Primary Care Provider [phone] Name, Rik GUERRERO Primary Care Provider [phone] Encounter Details Date Type Department Care Team (Late Contact Info) Description 03/03/2023 Orders Only [facility] MED[facility]INE [address] [place] [address] Olivia Martinez FNP [address] [place] [address] Social History Tobacco Use Types Packs/Day Years Used Date Smoking Tobacco: Never Smokeless Tobacco: Never Alcohol Use Standard Drinks/Week Comments Not Currently 0 (1 standard drink = 0.6 oz pur e alcohol) Depression Answer Date Recorded Patient Health Questionnaire-9 Score 21 03/01/2023 Depression Answer Date Recorded Patient Health Questionnaire-2 Score 6 03/01/2023 Sex and Gender Information Value Date Recorded Sex Assigned at Male 08/22/2022 10:20 AM EDT Legal Sex Male 10:20 AM EDT Gender Identity Male 08/22/2022 10:20 AM EDT Sexual Orientation Straight 08/22/2022 10 :20 AM EDT COVID-19 Exposure Response Date Recorded In the last 10 days, have yo u been in contact with someone who was confirmed or suspected to have Coronavirus/COVID-19? No / Unsure 03/01/2023 10:38 AM EDT documented as of this encounter Plan of Treatment Upcoming Encounters Date Type Department Care Team (Late Contact Info) Description 01/22/2025 10:30 AM EDT Office Visit [facility] [address] [place] [address] Name, MD Rik [address] [place] [address] documented as of this encounter Visit Diagnoses Not on filedocumented in this encounter Additional Health Concerns Assessment Noted Time PHQ-9 Depression Total Score: 21 023 10:55 AM EDT documented as of this encounter Care Teams Color Finisher Relationship Specialty Start Date End Date [place] [address] PCP - General Family Medicine 07/29/22 06/17/24 NameRik MD [address] [place] [address] PCP - General Internal Medicine 06/18/24 documented as of this encounter
--- OUTSIDE RECORDS SUMMARY | 2024-11-19 12:02 | XMS_ITS | Encounter Summary ---
Author Organization [employer] Address [address] [facility] [address] 7[address] [place] [address] Care Team Providers Care Science And Operations Officer Name Role Phone Name, Rik GUERRERO Primary Care Provider [phone] Reason for Visit * Reason Onset Date Comments chart prep 11/18/2024 Encounter Details Date Type Department Care Team ([facility] st Contact Info) Description 11/18/2024 Telephone [facility] MED[facility] [address] [place] [address] Gabriel Luna MA chart prep Social History Tobacco Use Types Packs/Day Years [...] AM EDT documented as of this encounter Miscellaneous Notes * Telephone Encounter - Gabriel Luna MA - 11/18/2024 9:35 AM EST Chart Prep Labs: done Images: done Vaccines due: yes Referrals: complete Screenings: eye exam Overdue care gaps: A1C, Glucose, Sbirt, SDOH, PHQ-9, Oral Health, FERNANDA-7 documented in this encounter Plan of Treatment Upcoming Encounters Date Type Department Care Team (Late st Contact Info) Description 01/22/2025 10:30 AM EDT Office Visit [facility] MED[facility] [address] [place] [address] Name, MD Rik [address] [place] [address] documented as of this encounter Visit Diagnoses Not on filedocumented in this encounter Additional Health Concerns Assessment Noted Time PHQ-9 Depression Total Score: 12 024 10:13 AM EDT documented as of this encounter Care Teams Science And Operations Officer Relationship Specialty Start Date End Date Name, MD Rik [address] [place] [id number] PCP - General Internal Medicine 06/18/24 documented as of this encounter
--- OUTSIDE RECORDS SUMMARY | 2024-11-19 12:02 | XMS_ITS | Encounter Summary ---
Author Organization [employer] Address 75 [facility] 7t [place] [address] Care Team Providers Care Antique Jewelry Repairer Name Role Phone Name, Rik GUERRERO Primary Care Provider [phone] Reason for Visit * Reason Comments transfer patient visit Encounter Details Date Type Department Care Team ([facility] st Contact Info) Description 11/19/2024 10:15 AM EST Office [address] 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, without long-term current use of insulin, unspecified whether stage 3a or 3b CKD (CMS/HCC) (Primary Dx); Coronary artery disease involving [place] coronary artery of [place] heart without angina pectoris; Vaccination refused by patient Social History Tobacco Use Types Packs/Day Years [...] AM EDT documented as of this encounter Last Filed Vital Signs Vital Sign Reading Time Taken Comments Blood Pressure 148/84 11/19/2024 10:09 AM EST Pulse 82 11/19/2024 10:09 AM EST Temperature 36.6 ??C (97.8 ??F) 11/19/2024 10:[address] Respiratory Rate 21 11/19/2024 10:09 AM EST Oxygen Saturation - - Inhaled Oxygen Concentration - - Weight 68.6 kg (151 lb 3.2 oz) 11/19/2024 10:09 AM EST Height 175.3 cm (5' 9 ) 11/19/2024 10:09 AM EST Body Mass Index 22.33 11/19/2024 10:09 AM EST documented in this encounter Progress Notes * Rik Molina MD - 11/19/2024 10:15 AM EST Subjective Patient ID: Jah Chua is a 79 y.o. male who presents for transfer patient visit. Patient comes for the first time to see me. He is accompanied by his son that is his main dining room tables set up attendant. The patient is transferring from a PCP that left the practice. He is asymptomatic today. He has personal history of hypertension, diabetes, CAD, cognitive impairment (history of dementia). The patient is alert, cooperative, oriented to person and place, he remembers his medications, he is independent for ADLs. He explains to me that he exercises regularly. He walks for about half an hour a day. He refuses any vaccination. He does not bring his glucose meter. His hemoglobin A1c today shows fairly good control of his diabetes on his current dose of Trulicity and metformin. He is on Plavix and s tatin. He is not on ARB or Jardiance. He has a medbox and told me he does not use ASA anymore. Review of Systems Constitutional: Negative for chills, fatigue and fever. HENT: Negative for sore throat. Respiratory: Negative for cough, chest tightness and shortness of breath. Cardiovascular: Negative for chest pain, palpitations and leg swelling. Gastrointestinal: Negative for abdominal pain and blood in stool. Visit Vitals BP (!) 148/84 (BP Location: Left arm, Patient Position: Sitting, BP Cuff Size: Adult) Pulse 82 Temp 97.8 ??F (36.6 ??C) (Temporal) Resp 21 Ht 5' 9 (1.753 m) Wt 151 lb 3.2 oz (68.6 kg) BMI 22.33 kg/m?? Smoking Status Never BSA 1.83 m?? Objective Physical Exam Constitutional: Appearance: Normal appearance. Cardiovascular: Rate and Rhythm: Normal rate and regular rhythm. Heart sounds: No murmur heard. Pulmonary: Effort: Pulmonary effort is normal. No respiratory distress. Breath sounds: No wheezing, rhonchi or rales. Abdominal: Palpations: Abdomen is soft. Tenderness: There is no abdominal tenderness. Musculoskeletal: Right lower leg: No edema. Left lower leg: No edema. Neurological: Mental Status: He is alert. Sensory: Sensory deficit: brief. Lab Results Component Value Date HGBA1C 7.7 (A) 11/19/2024 HGBA1C 8.2 (A) 01/29/2024 HGBA1C 13.3 (A) 03/01/2023 HGBA1C 7.2 (H) 08/06/2021 HGBA1C 7.6 (H) 06/24/2021 Assessment/Plan Diagnoses and all orders for this visit: Diabetes mellitus due to underlying condition with stage 3 chronic kidney disease, without long-term current use of insulin, unspecified whether stage 3a or 3b CKD (CMS/HCC) Comments: I did not recommend any medication changes. He is recommended to check the fasting blood work listed below. Orders: - POCT Glucose - POCT HGB A1C - CBC auto differential; Future - Comprehensive Metabolic Panel; Future - Lipid Panel, Standard; Future - Albumin, Random Urine W/Creatinine; Future Coronary artery disease involving [place] coronary artery of [place] heart without angina pectoris Comments: See above Orders: - CBC auto differential; Future - Comprehensive Metabolic Panel; Future - Lipid Panel, Standard; Future - Albumin, Random Urine W/Creatinine; Future Vaccination refused by patient Comments: I offered PCV 20 vaccination today. Patient refused any vaccination. documented in this encounter Plan of Treatment Upcoming Encounters Date Type Department Care Team (Late st Contact Info) Description 01/22/2025 10:30 AM EDT Office Visit [facility] MED[facility] [address] [place] [address] Name, MD Rik [address] [place] [address] Scheduled Orders Name Type Priority Associated Diagnoses Orde r Schedule CBC auto differential Lab Routine Diabetes mellitus due to underlying condition with stage 3 chronic kidney disease, without long-term current use of insulin, unspecified whether stage 3a or 3b CKD (CMS/HCC) Coronary artery disease involving [place] coronary artery of [place] heart without angina pectoris Expected: 11/19/2024 (Approximate), Expires: 11/19/2025 Comprehensive Metabolic Panel Lab Routine Diabetes mellitus due to underlying condition with stage 3 chronic kidney disease, without long-term current use of insulin, unspecified whether stage 3a or 3b CKD (CMS/HCC) Coronary artery disease involving [place] coronary artery of [place] heart without angina pectoris Expected: 11/19/2024 (Approximate), Expires: 11/19/2025 Lipid Panel, Standard Lab Routine Diabetes mellitus due to underlying condition with stage 3 chronic kidney disease, without long-term current use of insulin, unspecified whether stage 3a or 3b CKD (CMS/HCC) Coronary artery disease involving [place] coronary artery of [place] heart without angina pectoris Expected: 11/19/2024 (Approximate), Expires: 11/19/2025 Albumin, Random Urine W/Creatinine Lab Routine Diabetes mellitus due to underlying condition with stage 3 chronic kidney disease, without long-term current use of insulin, unspecified whether stage 3a or 3b CKD ([facility]) Coronary artery disease involving [place] coronary artery of [place] heart without angina pectoris Expected: 11/19/2024 (Approximate), Expires: 11/19/2025 documented as of this encounter Procedures Procedure Name Priority Date/Time Associated Diagnosis Comments POCT GLYCATED HEMOGLOBIN, TOTAL Routine 11/19/2024 10:19 AM EST Diabetes mellitus due to underlying condition with stage 3 chronic kidney disease, without long-term current use of insulin, unspecified whether stage 3a or 3b CKD ([facility]) POCT GLUCOSE Routine 11/19/2024 10:19 AM EST Diabetes mellitus due to underlying condition with stage 3 chronic kidney disease, without long-term current use of insulin, unspecified whether stage 3a or 3b CKD ([facility]) documented in this encounter Results * (ABNORMAL) POCT HGB A1C (11/19/2024 10:19 AM EST) Hemoglobin A1C 7.7(A) 4.0 - 6.0 % QC Media Lot # [id number] Lot# Expiration Date 71,626 Blood 11/19/2024 10:1 9 AM EST us Rik Molina MD POINT OF CARE TEST ENTER/EDIT OR DERABLES Final Result * POCT Glucose (11/19/2024 10:19 AM EST) Glucose Blood, POC 161 60 - 200 mg/dL QC Media Lot # [id number] Lot# Expiration Date 53,025 Blood Capillary blood specimen / Unknown 11/19/2024 10:19 AM EST us Rik Molina MD POINT OF CARE TEST ENTER/EDIT OR DERABLES Final Result documented in this encounter Visit Diagnoses Diagnosis Diabetes mellitus due to underlying condition with stage 3 chronic kidney disease, without long-term current use of insulin, unspecified whether stage 3a or 3b CKD (CMS/HCC)- Primary Coronary artery disease involving [place] coronary artery of [place] heart without angina pectoris Vaccination refused by patient documented in this encounter Additional Health Concerns Assessment Noted Time PHQ-9 Depression Total Score: 15 025 10:22 AM EST documented as of this encounter Care Teams Antique Jewelry Repairer Relationship Specialty Start Date End Date Name, MD Rik [address] [place] [address] PCP - General Internal Medicine 06/18/24 documented as of this encounter
--- OUTSIDE RECORDS SUMMARY | 2024-11-19 12:03 | XMS_ITS | Encounter Summary ---
Author Organization [employer] Address [address] [facility] [address] 7[address] [place] [address] Care Team Providers Care Metal Technician Name Role Phone Olivia Martinez Primary Care Provider [phone] Name, Rik GUERRERO Primary Care Provider [phone] Reason for Visit * Reason Onset Date Comments Appointment Request 04/29/2024 Encounter Details Date Type Department Care Team ([facility] st Contact Info) Description 04/29/2024 Telephone [facility] MEDICINE [address] [place], [place] [phone] Olivia Martinez FNP [address] [place], [place] [phone] Appointment Request Social History Tobacco Use Types Packs/Day Years [...] encounter Miscellaneous Notes * Telephone Encounter - Ortegasumit Shelley - 04/29/2024 1:31 PM EDT Tc from pt stating won't be able to make it to appt on 05/03 and is requesting to reschedule but job specification writer found no availability. Please contact pt at [phone]. documented in this encounter Plan of Treatment Upcoming Encounters Date Type Department Care Team (Late st Contact Info) Description 01/22/2025 10:30 AM EDT Office Visit [facility] MED[facility]INE [address] [place] [address] NameRik MD [address] [place] [address] documented as of this encounter Visit Diagnoses Not on filedocumented in this encounter Additional Health Concerns Assessment Noted Time PHQ-9 Depression Total Score: 12 024 10:13 AM EDT documented as of this encounter Care Teams Metal Technician Relationship Specialty Start Date End Date Olivia Martinez FNP [address] [place] [address] PCP - General Family Medicine 07/29/22 06/17/24 NameRik MD [address] [place] [address] [place] [address] PCP - General Internal Medicine 06/18/24 documented as of this encounter
--- OUTSIDE RECORDS SUMMARY | 2024-11-19 12:03 | XMS_ITS | Encounter Summary ---
Author Organization [employer] Address [address] [facility] [address] 7t [place] [address] Care Team Providers Care Identity Access Management Architect Name Role Phone Olivia Martinez Primary Care Provider [phone] Name, Rik GUERRERO Primary Care Provider [phone] Reason for Visit * Reason Onset Date Comments Durable Medical Equipment 11/29/2023 Encounter Details Date Type Department Care Team ([facility] st Contact Info) Description 11/29/2023 Telephone [facility] MEDICINE [address] [place] [address] Olivia Martinez FNP [address] [place] [address] Durable Medical Equipment Social History Tobacco Use Types Packs/Day Years [...] encounter Miscellaneous Notes * Telephone Encounter - Francine Walters - 11/30/2023 10:00 AM EST Please see below message and advise. Thank you * Telephone Encounter - Kandi Salomon - 11/29/2023 12:57 PM EST Tc from pt daughter Aaliyah requesting a new script for boost milk, states if scripts can be sent with refills for a whole year. Please contact at [phone] documented in this encounter Plan of Treatment Upcoming Encounters Date Type Department Care Team (Late st Contact Info) Description 01/22/2025 10:30 AM EDT Office Visit [facility] MEDICINE [address] [place] [address] Name, MD Rik [address] [place] [address] documented as of this encounter Visit Diagnoses Not on filedocumented in this encounter Additional Health Concerns Assessment Noted Time PHQ-9 Depression Total Score: 21 023 10:55 AM EDT documented as of this encounter Care Teams Identity Access Management Architect Relationship Specialty Start Date End Date Olivia Martinez FNP [address] [place] [address] PCP - General Family Medicine 07/29/22 06/17/24 Name, MD Rik [address] [place] [address] PCP - General Internal Medicine 06/18/24 documented as of this encounter
--- OUTSIDE RECORDS SUMMARY | 2024-11-19 12:03 | XMS_ITS | Encounter Summary ---
Author Organization [employer] Address [address] 7[address] [place] [address] Care Team Providers Care Job Interviewer Name Role Phone Olivia Martinez Primary Care Provider [phone] Name, Rik GUERRERO Primary Care Provider [phone] Encounter Details Date Type Department Care Team (Late st Contact Info) Description 01/29/2024 Orders Only [facility] [address] [place] [address] Olivia Martinez FNP [address] [place] [address] Social History Tobacco Use Types Packs/Day Years [...] Description 01/22/2025 10:30 AM EDT Office Visit [facility] MEDICINE [address] [place] [address] Rik Molina MD [address] [place] [address] documented as of this encounter Visit Diagnoses Not on filedocumented in this encounter Additional Health Concerns Assessment Noted Time PHQ-9 Depression Total Score: 12 024 10:13 AM EDT documented as of this encounter Care Teams Job Interviewer Relationship Specialty Start Date End Date Olivia Martinez FNP [address] [place] [address] PCP - General Family Medicine 07/29/22 06/17/24 Rik Molina MD [address] [place] [address] PCP - General Internal Medicine 06/18/24 documented as of this encounter
--- OUTSIDE RECORDS SUMMARY | 2024-11-19 12:03 | XMS_ITS | Clinical Summary ---
Author Organization [facility] Address [address] [place] [address] Phone Care Team Providers Care Psychological Examiner Name Role Phone Marcos Morris Primary Care Provider Unavaila ble Allergies No known active allergies Medications albuterol (5 MG/ML) 0.5% nebulizer solution Take 1 mg by nebulization Active Cholecalciferol 50 MCG (1999) capsule Take 1 capsule by mouth 1 (one) time each day Active atorvastatin (LIPITOR) 80 MG tablet Take 1 tablet by mouth 1 (one) time each day Active atenolol (TENORMIN) 100 MG tablet Take 1 tablet by mouth 1 (one) time each day Active allopurinol (ZYLOPRIM) 300 MG tablet Take 0.5 tablets by mouth 1 (one) time each day Active clopidogrel (PLAVIX) 75 MG tablet Take 75 mg by mouth 1 (one) time each day Active omeprazole (PriLOSEC) [address] capsule Take 20 mg by mouth 1 (one) time each day Do not crush or chew. Active loratadine (CLARITIN) 10 MG tablet Take 10 mg by mouth 1 (one) time each day Active traZODone (DESYREL) 50 MG tablet Take 50 mg by mouth at bed time 1 Active prednisoLONE acetate (PRED FORTE) 1 % ophthalmic suspension PLACE 1 DROP IN THE RIGHT EYE FOUR TIMES DAILY FOR ONE WEEK, THEN THREE TIMES DAILY FOR ONE WEEK, THEN TWICE DAILY FOR ONE WEEK, THEN DAILY FOR ONE WEEK 1 Active ofloxacin (OCUFLOX) 0.3 % ophthalmic solution USAR DIRECTED AFTER DE CADA OPERACION 1 GOTA FOUR TIMES DAILY, START IN THE RIGHT EYE 06/26 AND IN THE LEFT EYE 07/10 1 Active metFORMIN (GLUCOPHAGE) 500 MG tablet TAKE 1 TABLET BY MOUTH TWICE DAILY IN THE MORNING AND IN THE EVENING WITH MEALS 1 Active gabapentin (NEURONTIN) 100 MG capsule TAKE 1 CAPSULE BY MOUTH THREE TIMES DAILY IN THE MORNING, EVENING, AND BEDTIME 1 Active losartan (COZAAR) 50 MG tablet TAKE 1 TABLET BY MOUTH EVERY MORNING 90 tablet 1 2 Active amLODIPine (NORVASC) 2.5 MG tablet TAKE 1 TABLET BY MOUTH EVERY EVENING 30 tablet 1 3 Active Active Problems Problem Noted Date Diagnosed Date Nasal discharge 04/04/2023 05/16/2023 Insomnia 04/04/2023 05/16/2023 Decrease in appetite 04/04/2023 05/16/2023 Vitamin D deficiency 07/22/2021 Diabetes mellitus 07/22/2021 Essential hypertension 07/22/2021 Proteinuria 07/22/2021 Polyneuropathy in other diseases classified else where 02/20/2018 05/16/2023 Diabetic peripheral neuropat hy associated with type 2 diabetes mellitus 02/20/2018 05/16/2023 Type 2 diabetes mellitus without complication 05/16/2023 Secondary erectile dysfunction 08/12/2015 0 05/16/2023 Chronic gouty arthritis 08/12/2015 05/16/20 23 Resolved Problems Problem Noted Date Diagnosed Date Resolved Date Coronary arteriosclerosis 06/09/2022 Ulcer of duodenum 06/09/2022 06/09/2022 History of hernia repair 06/09/2022 H/O Spinal surgery 06/09/2022 Hypercholesterolemia 06/09/2022 022 Syncope and collapse 06/09/2022 022 Varicose veins of lower extremity 06/09/2022 06/09/2022 Gout 07/22/2021 06/09/2022 Dysthymia 07/22/2021 06/09/2022 Enlarging abdominal aortic aneurysm 07/22/2021 06/09/2022 Gastroesophageal reflux disease 07/22/2021 06/09/2022 Hyperchloremia 07/22/2021 06/09/2022 Impotence of organic origin 07/22/2021 06/09/2022 Osteoarthritis 07/22/2021 06/09/2022 Immunizations Name Administration Dates Next Due Td 10/23/2000 Tdap 01/30/2021 Family History Medical History Relation Comments Diabetes Child Cancer Father Hypertension Father Relation Status Comments Child Father Unknown Mother Unknown Social History Tobacco Use Types Packs/Day Years Used Date Smoking Tobacco: Never Smokeless Tobacco: Never Alcohol Use Standard Drinks/Week Comments Yes 0 (1 standard drink = 0.6 oz pure alcohol) Alcoholic Drinks/day: Occasional social drink Sex and Gender Information Value Date Recorded Sex Assigned at Not on file Legal Sex Male 4:49 PM EST Gender Identity Not on file Sexual Orientation Not on file Last Filed Vital Signs Vital Sign Reading Time Taken Comments Blood Pressure 140/70 06/09/2022 3:28 PM EDT Pulse 68 06/09/2022 3:28 PM EDT Temperature - - Respiratory Rate - - Oxygen Saturation 97% 06/09/2022 3:28 PM EDT Inhaled Oxygen Concentration - - Weight 70.9 kg (156 lb 6.4 oz) 06/09/2022 3:28 P M EDT Height - - Body Mass Index - - Plan of Treatment Health Maintenance Due Date Last Done Comments Pneumococcal Vaccine: 65+ Ye ars (1 of 2 - PCV) 1951 Diabetes: Ophthalmology Exam 11/23/2020 Diabetes: Pedal Pulse Checked 11/23/2020 Diabetes: Sensory Foot Exam 11/23/2020 Diabetes: Visual Foot Exam 11/23/2020 Diabetes: Hemoglobin A1C 06/01/2023 03/01/2023 Influenza Vaccine (#1) 2024 Hepatitis B Vaccine Aged Out No longe r eligible based on patient's age to complete this topic Insurance [facility] ([id number]) [facility] ([id number]) Care Teams Psychological Examiner Relationship Specialty Start Date End Date Marcos Morris PCP - General Internal Medicine 06/02/21
--- OUTSIDE RECORDS SUMMARY | 2024-11-19 12:03 | XMS_ITS | Data Portability ---
Author Organization [employer] Address [address] [place] [address] Care Team Providers Care World Geography Teacher Name Role Phone [facility] Referring Provider Assessment Encounter Date Assessment Date Assessment LastModified by Organization Details LastModified Time 08/18/2022 08/18/2022 I have reviewed and agree with the Assessment and Plan as documented by the Furniture Assembly Supervisor. I provided real-time medical direction via phone for this encounter, and was available for additional phone based assistance as needed. Patient seen for weakness, malaise, cough found to be febrile, hypotensive, lethargic, and hypoxemic. Initially refused to go to the hospital (fearful of receiving a terminal diagnosis) but was eventually convinced to go via EMS pallfather Not available 08/18/2022 19:07:04 08/23/2022 08/23/2022 76 YOM with recent admission to the [facility] for cholecystitis discharged on antibiotics with plan for follow up this Monday with GI surgery being seen for nausea and some diarrhea this AM. No current fevers or concerning abdominal exam findings. Pt given 4mg ODT zofran and prescription sent in for Zofran to be used as needed. Red flag symptoms discussed and patient expressed understanding. [email or web address] Not available 08/23/2022 16:58:58 Plan of Treatment Reminders Order Date Submit Date Provider Last Modified By Organization Details Last Modified Time Details Appointments None recorded. Lab None recorded. Referral None recorded. Procedures None recorded. Surgeries None recorded. Imaging None recorded. Medication Orders ondansetron 4 mg disintegrat ing tablet 2021 022 [facility], [address] [facility], [place], [place], [phone], 16:51:25 Patient TargetsNo targets recorded. Patient Instructions Encounter Date Encounter Id Patient Instructions Last Modified By Organization Details Last Modified Time 08/18/2022 [id number] infusion, normal saline* FANG Not available 08/20/2023 05:01:57 Reason for Referral None Reported. Medical Equipment None Reported. Medications Name Sig Start Date Stop Date Status Note LastModified by Organization Details LastModified Time losartan 50 mg tablet TAKE 1 TABLET BY MOUTH EVERY MORNING active Not Available Not Available No t Available metformin 500 mg tablet TAKE 1 TABLET BY MOUTH TWICE DAILY IN THE MORNING AND IN THE EVENING WITH MEALS active Not Available Not Available No t Available atorvastatin 80 mg tablet TAKE 1 TABLET BY MOUTH AT BEDTIME active Not Available Not Available No t Available clindamycin HCl 300 mg capsule TAKE 1 CAPSULE BY MOUTH THREE TIMES DAILY UNTIL FINISHED active Not Available Not Available No t Available trazodone 50 mg tablet TAKE 1 TABLET BY MOUTH AT BEDTIME active Not Available Not Available No t Available amlodipine 2.5 mg tablet TAKE 1 TABLET BY MOUTH EVERY EVENING active Not Available Not Available No t Available metronidazole 500 mg tablet TAKE 1 TABLET BY MOUTH EVERY 8 HOURS FOR 7 DAYS active Not Available Not Available No t Available clopidogrel 75 mg tablet TAKE 1 TABLET BY MOUTH EVERY MORNING active Not Available Not Available No t Available tamsulosin 0.4 mg capsule TAKE 1 CAPSULE BY MOUTH EVERY EVENING 30 MINUTOS DESPUES DE LA MISMA CADA JON active Not Available Not Available No t Available omeprazole 20 mg capsule,delaye d release TAKE 1 CAPSULE BY MOUTH TWICE DAILY IN THE MORNING AND IN THE EVENING active Not Available Not Available No t Available allopurinol 300 mg tablet TAKE 1 TABLET BY MOUTH EVERY MORNING active Not Available Not Available No t Available gabapentin 100 mg capsule TAKE 1 CAPSULE BY MOUTH THREE TIMES DAILY IN THE MORNING, EVENING, AND BEDTIME active Not Available Not Available No t Available levofloxacin 750 mg tablet TAKE 1 TABLET BY MOUTH EVERY 24 HOURS FOR 7 DAYS active Not Available Not Available No t Available ondansetron [address] 1 TABLET UNDER THE TONGUE TWICE DAILY NEEDED active Not Available Not Available No t Available atenolol 50 mg tablet TAKE 1 TABLET BY MOUTH EVERY MORNING active Not Available Not Available No t Available Ventolin HFA 90 mcg/actuation aerosol inhaler INHALE 2 PUFFS BY MOUTH FOUR TIMES DAILY NEEDED active Not Available Not Available No t Available Allergy Relief (loratadine) 10 mg tablet TAKE 1 TABLET BY MOUTH EVERY MORNING NEEDED active Not Available Not Available No t Available FreeStyle Lite Strips TEST BLOOD SUGAR 3 TIMES A DAY active Not Available Not Available No t Available Vitamin D3 50 mcg (2,000 unit) capsule TAKE 1 CAPSULE BY MOUTH EVERY MORNING active Not Available Not Available No t Available TRUEplus Lancets 33 gauge TEST BLOOD SUGAR 3 TIMES A DAY active Not Available Not Available No t Available Vitals Date Recorded Body temperature Heart rate Respiratory rate Oxygen saturation Oxygen saturation in Arterial blood by Pulse oximetry Respiratory rate Oxygen saturation Oxygen saturation in Arterial blood by Pulse oximetry Heart rate Body temperature Systolic blood pressure Diastolic blood pressure Systolic blood pressure Diastolic blood pressure Provider Name and Address Organization Details Last Updated DateTime 2 101 [degF] 105 /min 20 /min 89 % 89 % 20 /min 89 % 89 % 105 /min 101 [degF] 91 mm[Hg] 53 mm[Hg] 91 mm[Hg] 53 mm[Hg] Not Available [employer] 2 12:59:59 Date Recorded Body temperature Oxygen saturation Oxygen saturation in Arterial blood by Pulse oximetry Heart rate Respiratory rate Systolic blood pressure Diastolic blood pressure Provider Name and Address Organization Details Last Updated DateTime 2 98.5 [degF] 97 % 97 % 117 /min 18 /min 152 mm[Hg] 94 mm[Hg] Not Available [employer] 2 16:42:17 Social History None recorded. Functional Status None recorded. Mental Status None recorded. Family History Nothing Reported. Medical History No medical history recorded. Past Encounters Encounter ID Performer Location Encounter Start Date Encounter Closed Date Diagnosis/Indication Diagnosis SNOMED-CT Code Diagnosis ICD10 Code Diagnosis Note [id number] Yonathan Yang MD [facility] [address] [place] [address] [id number] 08/18/2022 12:11:00 08/23/2022 12:46:30 Low blood pressure 03971272 I95.9 [id number] Avtar Plasencia MD [facility] [address] [place] [address] [id number] 08/23/2022 16:42:15 08/24/2022 12:02:36 Nausea and vomiting [id number] R11.2 Health Concerns Section Related Observation LastModified by Organization Detai ls LastModified Time None Recorded Concern Status LastModified by Organization Details LastModified Time None Recorded Advance Directives Directive None Recorded Payers Encounter Date Sequence Insurance Name Policy Number Policy Cantrell Covered Member ID Cantrell Member ID Guarantor Name 08/18/2022 1 [facility] - DOS PRIOR TO 2023 - DUAL ELIGIBLE (MEDICARE REPLACEMENT/ADV ANTAGE - HMO) Jah yang [id number] Jah Almendarez bridgercorin 08/23/2022 1 [facility] - DOS PRIOR TO 2023 - DUAL ELIGIBLE (MEDICARE REPLACEMENT/ADV ANTAGE - HMO) Jah stevenscorin [id number] Jah hanna Notes Date Note Type Note Provider Name and Address Organization Details Recorded Time 08/18/2022 text/html CRC Nursing Assessment: Reason For Request: PMH: Two stents RFR: Patient is very weak, chest is tight, harsh cough, patient is sleeping more than usual. During the start of the week patient states there was fever/chills that has subsided for now. Loss of appetite but has been drinking fluids. Patient Reports: History of asthma, increased use of inhaler; COPD; Shortness of breath with exertion Denies: Palpitations, feeling dizzy Chest pain, increased fatigue CHF history, increased swelling and edema Weakness/tachycardi a Cough, fever greater than 2 days Lower extremity swelling COVID Exposure Sputum increase Cough Pain with inspiration Chief Complaints: Cough, Fever/Chills, Nausea/Vomiting, Syncope/Dizziness/L ightheadedness, Shortness of Breath/Dyspnea PMH: COPD/Asthma, Diabetes Allergies: No Known Comments: Member denies chest pain , explained it as tightness due to his COPD / asthma not cardiac . Member does not wear o2 in the home. Member has nebs/ inhalers that has helped open his airway but not completely. Member has congestion and cough , exp wheeze. Spoke with daughter who is aware the visit is for tomorrow and will call 911 if symptoms increase >sdonner ................... ................... ................... ................... ................... ................... ................... ........ Furniture Assembly Supervisor Note: Pt complains of feeling sick for the last week but 2 days ago started feeling worse. Pt complains of feeling weak and tired. Pt complains of chest congestion and a cough. Pt found to be febrile (101.0F), hypotensive, tachycardic and hypoxic. Family advised that Pt had a tooth removed approx 1-2 weeks ago. Pt denies any jaw or tooth pain but does state his upper throat hurt. Lung sounds clear throughout all beck. Covid/Flu tests negative. [facility] contacted and advised of findings, advised ED was needed. Ambulance called for. 18g IV placed in R AC, ETCO2 (25), O2@ 3LPM brought SPO2 up to 95%, Blood glucose (306), 12 lead conducted (sinus tach without ST changes) and 500mL NS bolus given. Pt refused ED even with family and C speaking to him. Eventually Pts son came and between [facility] and him, we were able to convince Pt he needed to be seen at the ED. Pt transported to ED via [facility]. ................... ................... ................... ................... ................... ................... ................... ........ Disposition: Fulfilled Yonathan Yang MD [address] [facility],[address], [place], [phone], [employer] 08/18/2022 19:07:13 08/23/2022 text/html HPI: Pt reported feeling nauseous every time he eats or drinks something, stated is taking antibiotics, did not drink much today, had diarrhea this AM, stated dark color x 7-8 days, feels weak and has at times chills, denied fevers. Pt reported he was at [facility] until Monday, was dc home on 08/21/2022, treated for Cholecystitis and will see GI Surgeon this Monday for planned surgery, stated has to complete antibiotics befor his gall bladder surgery. Denied pain, stated fells bloated and weak, does not wish to go the ER but would like to see [facility] for fluids and to check on me . ................... ................... ................... ................... ................... ................... ................... ........ CRC Nursing Assessment: Comments: No additional information needed by CRC RN at this time ................... ................... ................... ................... ................... ................... ................... ........ Furniture Assembly Supervisor Note: Pt as noted still not feeling well with nausea and diarrhea. Pt was admitted to ED with sepsis . Admitted to hospital for inflamed gallbladder and diarrhea . Pt discharged with two antibiotics given . Pt reports mild nausea and diarrhea. Vitals completed , called and updated . recommended probiotics and 4mg Zofran ODT. Red flags discussed. ................... ................... ................... ................... ................... ................... ................... ........ Disposition: Fulfilled Avtar Plasencia MD [address] [place] [address],[address], [place], [phone], [employer] 08/23/2022 16:59:11
--- OUTSIDE RECORDS SUMMARY | 2024-11-19 12:03 | XMS_ITS | Encounter Summary ---
Author Organization [employer] Address [address] [place] [address] Care Team Providers Care Smoking Pipe Maker Name Role Phone Olivia Martinez Primary Care Provider [phone] Name, Rik GUERRERO Primary Care Provider [phone] Reason for Visit * Reason Onset Date Comments Lab Orders 01/16/2024 Encounter Details Date Type Department Care Team ([facility] st Contact Info) Description 01/16/2024 Telephone [facility] [address] [place], [place] [phone] Olivia Martinez FNP [address] [place], [place] [phone] Lab Orders Social History Tobacco Use Types Packs/Day Years Used Date Smoking Tobacco: Never Smokeless Tobacco: Never Alcohol Use Standard Drinks/Week Comments Not Currently 0 (1 standard drink = 0.6 oz pur e alcohol) Depression Answer Date Recorded Patient Health Questionnaire-9 Score 21 03/01/2023 Housing Stability Answer Date Recorded What is [...] encounter Miscellaneous Notes * Telephone Encounter - Clint Brown RN - 01/24/2024 2:53 PM EDT Daughter is looking for INR done for Dental procedure. Pt. Is having dental procedure at [facility] but they are looking for INR before procedure, please review and advise. * Telephone Encounter - Ortega Shelley - 01/24/2024 1:02 PM EDT Tc from daughter calling in regards to message prior. * Telephone Encounter - Clint Brown RN - 01/19/2024 10:09 AM EDT T/C to pt. Through [employer] interpreters id - [id number] for below message, No answer. LVM to call back on [phone]. * Telephone Encounter - David Tatum - 01/18/2024 8:16 AM EDT Tc from the patients daughter calling in regards to the message below please communicate with the daughter at [phone] * Telephone Encounter - Clint Brown RN - 01/17/2024 10:30 AM EDT RN called on file phone number, phone was hag up twice. * Telephone Encounter - Dulce Franks - 01/16/2024 12:34 PM EDT Tc from pt daughter requesting INR test order for a dental procedure. documented in this encounter Plan of Treatment Upcoming Encounters Date Type Department Care Team (Late st Contact Info) Description 01/22/2025 10:30 AM EDT Office Visit [facility] [address] [place] [phone] NameRik MD [address] [place] [phone] documented as of this encounter Visit Diagnoses Not on filedocumented in this encounter Additional Health Concerns Assessment Noted Time PHQ-9 Depression Total Score: 21 023 10:55 AM EDT documented as of this encounter Care Teams Smoking Pipe Maker Relationship Specialty Start Date End Date Olivia Martinez FNP [address] [place] [id number] PCP - General Family Medicine 07/29/22 06/17/24 NameRik MD [address] [place] [address] PCP - General Internal Medicine 06/18/24 documented as of this encounter
--- OUTSIDE RECORDS SUMMARY | 2024-11-19 12:03 | XMS_ITS | Encounter Summary ---
Author Organization [employer] Address [address] [place] [address] Care Team Providers Care Teacher Of The Emotionally Disturbed Name Role Phone Olivia Martinez Primary Care Provider [phone] Name, Rik GUERRERO Primary Care Provider [phone] Reason for Visit * Reason Onset Date Comments Durable Medical Equipment 02/12/2024 Encounter Details Date Type Department Care Team ([facility] st Contact Info) Description 02/12/2024 Telephone [facility] [address] [place] [address] Olivia Martinez FNP [address] [place] [address] Durable Medical Equipment Social History Tobacco Use [...] * Telephone Encounter - Francine Walters - 02/12/2024 2:31 PM EDT Please see message below and advise if agree with DME. Thank you * Telephone Encounter - Kandi Salomon - 02/12/2024 9:11 AM EDT Tc from pt jeanine pt daughter requesting for script nutritional drink (Boost) liquid to be sent to [facility], pharmacy does not cover boost. Please contact at documented in this encounter Plan of Treatment Upcoming Encounters Date Type Department Care Team (Late st Contact Info) Description 01/22/2025 10:30 AM EDT Office Visit [facility] [address] [place] [address] Name, MD Rik [address] [place] [address] documented as of this encounter Visit Diagnoses Not on filedocumented in this encounter Additional Health Concerns Assessment Noted Time PHQ-9 Depression Total Score: 12 024 10:13 AM EDT documented as of this encounter Care Teams Teacher Of The Emotionally Disturbed Relationship Specialty Start Date End Date Olivia Martinez FNP [address] [place] [address] PCP - General Family Medicine 07/29/22 06/17/24 Rik Molina MD [address] [place] [address] PCP - General Internal Medicine 06/18/24 documented as of this encounter
--- OUTSIDE RECORDS SUMMARY | 2024-11-19 12:03 | XMS_ITS | Encounter Summary ---
Author Organization [facility] Address [address] [facility] [address] [place] [address] Phone Care Team Providers Care Tinsmith Apprentice Name Role Phone Marcos Morris Primary Care Provider Unavaila ble Reason for Visit * Reason Comments Med Refill Encounter Details Date Type Department Care Team (Late st Contact Info) Description 02/21/2022 Refill [facility] [address] [place] [phone] Kory Nova MD Social History Tobacco Use Types Packs/Day Years [...] on file Sexual Orientation Not on file documented as of this encounter Plan of Treatment Not on file documented as of this encounter Visit Diagnoses Not on filedocumented in this encounter Care Teams Tinsmith Apprentice Relationship Specialty Start Date End Date Marcos Morris PCP - General Internal Medicine 06/02/21 documented as of this encounter
--- OUTSIDE RECORDS SUMMARY | 2024-11-19 12:03 | XMS_ITS | Encounter Summary ---
Author Organization [employer] Address [address] [place] [address] Care Team Providers Care Water Service Dispatcher Name Role Phone Olivia Martinez Primary Care Provider [phone] Name, Rik GUERRERO Primary Care Provider [phone] Reason for Visit * Reason Onset Date Comments Appointment Request 04/15/2024 Encounter Details Date Type Department Care Team ([facility] st Contact Info) Description 04/15/2024 Telephone [facility] [address] [place], [place] [phone] Olivia Martinez FNP [address] [place], [place] [phone] Appointment Request Social History Tobacco Use Types [...] encounter Miscellaneous Notes * Telephone Encounter - Ortega Shelley - 04/15/2024 2:51 PM EDT Tc from Aaliyah requesting to reschedule derm visit from 04/12. Please contact pt at [phone]. documented in this encounter Plan of Treatment Upcoming Encounters Date Type Department Care Team (Late st Contact Info) Description 01/22/2025 10:30 AM EDT Office Visit [facility] [address] [place] [address] Rik Molina MD [address] [place] [address] documented as of this encounter Visit Diagnoses Not on filedocumented in this encounter Additional Health Concerns Assessment Noted Time PHQ-9 Depression Total Score: 12 024 10:13 AM EDT documented as of this encounter Care Teams Water Service Dispatcher Relationship Specialty Start Date End Date Olivia Martinez FNP [address] [place], [place] [phone] PCP - General Family Medicine 07/29/22 06/17/24 NameRik MD [address] [place], [place] [phone] PCP - General Internal Medicine 06/18/24 documented as of this encounter
--- OUTSIDE RECORDS SUMMARY | 2024-11-19 12:03 | XMS_ITS | Encounter Summary ---
Author Organization [employer] Address [address] [facility] [address] [place] [address] Care Team Providers Care Naval Architect Name Role Phone Olivia Martinez Primary Care Provider [phone] Rik Molina MD Primary Care Provider [phone] Encounter Details Date Type Department Care Team (Late st Contact Info) Description 11/29/2022 Orders Only [facility] [address] [place] [address] Sherri Reddy LPN Social History Tobacco Use Types Packs/Day Years Used Date Smoking Tobacco: Never Assessed Sex and Gender Information Value Date Recorded Sex Assigned at Male 08/22/2022 10:20 AM EDT Legal Sex Male 10:20 AM EDT Gender Identity Male 08/22/2022 10:20 AM EDT Sexual Orientation Straight 08/22/2022 10 :20 AM EDT documented as of this encounter Plan of Treatment Upcoming Encounters Date Type Department Care Team (Late st Contact Info) Description 01/22/2025 10:30 AM EDT Office Visit [facility] MEDICINE [address] [place] [address] Rik Molina MD [address] [place] [address] documented as of this encounter Visit Diagnoses Not on filedocumented in this encounter Care Teams Naval Architect Relationship Specialty Start Date End Date Olivia Martinez FNP [address] [place] [address] PCP - General Family Medicine 07/29/22 06/17/24 Name, MD Rik [address] [place] [address] PCP - General Internal Medicine 06/18/24 documented as of this encounter
--- OUTSIDE RECORDS SUMMARY | 2024-11-19 12:03 | XMS_ITS | Encounter Summary ---
Author Organization [employer] Address [address] [place] [address] Care Team Providers Care Cosmetic Sales Assistant Name Role Phone Olivia Martinez Primary Care Provider [phone] Name, Rik GUERRERO Primary Care Provider [phone] Reason for Visit * Reason Onset Date Comments Nurse Triage 12/20/2023 Encounter Details Date Type Department Care Team ([facility] st Contact Info) Description 12/20/2023 Telephone [facility] MEDICINE [address] [place] [address] Olivia Martinez FNP [address] [place], [place] [phone] Nurse Triage Social History Tobacco Use Types Packs/Day Years [...] encounter Miscellaneous Notes * Telephone Encounter - Eva Abraham RN - 12/20/2023 4:20 PM EST Call returned to Jah Chua for triage. No answer LVM to return call to [facility] triage line [phone]. * Telephone Encounter - Jerry Mckeon - 12/20/2023 4:05 PM EST Symptoms: Skin Lump, Neck Pain - Not From Injury Outcome: Schedule an urgent appointment (within 4 hours) or talk to a nurse or provider soon Reason: Getting worse The caller accepted this outcome Please contact Daughter @ [phone] documented in this encounter Plan of Treatment Upcoming Encounters Date Type Department Care Team (Late st Contact Info) Description 01/22/2025 10:30 AM EDT Office Visit [facility] [address] [place] [address] Name, MD Rik [address] [place] [address] documented as of this encounter Visit Diagnoses Not on filedocumented in this encounter Additional Health Concerns Assessment Noted Time PHQ-9 Depression Total Score: 21 023 10:55 AM EDT documented as of this encounter Care Teams Cosmetic Sales Assistant Relationship Specialty Start Date End Date Olivia Martinez FNP [address] [place], [place] [phone] PCP - General Family Medicine 07/29/22 06/17/24 Rik Molina MD [address] [place] [address] PCP - General Internal Medicine 06/18/24 documented as of this encounter
--- OUTSIDE RECORDS SUMMARY | 2024-11-19 12:03 | XMS_ITS | Encounter Summary ---
Author Organization [employer] Address [address] [place] [address] Care Team Providers Care Financial Management Consultant Name Role Phone Olivia Martinez Primary Care Provider [phone] Name, Rik GUERRERO Primary Care Provider [phone] Reason for Visit * Reason Onset Date Comments Paperwork/Forms 12/19/2023 Encounter Details Date Type Department Care Team ([facility] st Contact Info) Description 12/19/[address] [facility] MEDICINE [address] [place] [address] Olivia Martinez FNP [address] [place] [address] Paperwork/Forms Social History Tobacco Use Types Packs/Day Years [...] Telephone Encounter - Clint Brown RN - 12/26/2023 1:40 PM EST T/C to pt.'s daughter for below message. Daughter verbally agreed and understood. * Telephone Encounter - Clint Brown RN - 12/22/2023 10:23 AM EST Dental clearance form printed and place on desk, please review and advise if needed. * Telephone Encounter - Clint Brown RN - 12/19/2023 2:39 PM EST Please review and advise for below request. * Telephone Encounter - David Tatum - 12/19/2023 1:16 PM EST Tc from patients daughter calling to request the status of the paper work from dental that was turned in to the Medical records department for the provider to sign patient did communicate with Medical records and was advised to call PCP documented in this encounter Plan of Treatment Upcoming Encounters Date Type Department Care Team (Late st Contact Info) Description 01/22/2025 10:30 AM EDT Office Visit [facility] MEDICINE [address] [place] [address] Name, MD Rik [address] [place] [address] documented as of this encounter Visit Diagnoses Not on filedocumented in this encounter Additional Health Concerns Assessment Noted Time PHQ-9 Depression Total Score: 21 023 10:55 AM EDT documented as of this encounter Care Teams Financial Management Consultant Relationship Specialty Start Date End Date Olivia Martinez FNP [address] [place] [address] PCP - General Family Medicine 07/29/22 06/17/24 Name, MD Rik [address] [place] [address] PCP - General Internal Medicine 06/18/24 documented as of this encounter
--- OUTSIDE RECORDS SUMMARY | 2024-11-19 12:03 | XMS_ITS | Encounter Summary ---
Author Organization [employer] Address [address] [facility] [address] [place] [address] Care Team Providers Care Dock Superintendent Name Role Phone BlaineOlivia aguilar EARL Primary Care Provider [phone] Rik Molina MD Primary Care Provider [phone] Reason for Visit * Reason Comments Med Refill Encounter Details Date Type Department Care Team (Late st Contact Info) Description 11/09/2022 Refill [facility] [address] [place], [place] [phone] Fritz Catalan MD [address] [place], [place] [phone] Type 2 diabetes mellitus without complication, unspecified whether senior care insulin use (CMS/HCC) Social History Tobacco Use Types Packs/Day Years [...] Description 01/22/2025 10:30 AM EDT Office Visit [facility] MEDICINE [address] [place], [place] [phone] Rik Molina MD [address] [place], [place] [phone] documented as of this encounter Visit Diagnoses Diagnosis Type 2 diabetes mellitus without complication, unspecified whether senior care insulin use (CMS/HCC) documented in this encounter Care Teams Dock Superintendent Relationship Specialty Start Date End Date Olivia Martinez FNP [address] [place], [place] [phone] PCP - General Family Medicine 07/29/22 06/17/24 Name, MD Rik [address] [place] [address] PCP - General Internal Medicine 06/18/24 documented as of this encounter
--- OUTSIDE RECORDS SUMMARY | 2024-11-19 12:03 | XMS_ITS | Encounter Summary ---
Author Organization [employer] Address [address] [facility] [address] [place] [address] Care Team Providers Care Driver Salesman Name Role Phone Olivia Martinez Primary Care Provider [phone] Name, Rik GUERRERO Primary Care Provider [phone] Reason for Visit * Reason Comments Med Refill Encounter Details Date Type Department Care Team ([facility] st Contact Info) Description 05/19/2024 Refill [facility] MEDICINE [address] [place] [address] Olivia Martinez FNP [address] [place] [address] Polyneuropathy, unspecified Social History Tobacco Use Types Packs/Day Years [...] Description 01/22/2025 10:30 AM EDT Office Visit [facility] MEDICINE [address] [place] [address] Rik Molina MD [address] [place] [address] documented as of this encounter Visit Diagnoses Diagnosis Polyneuropathy, unspecified documented in this encounter Additional Health Concerns Assessment Noted Time PHQ-9 Depression Total Score: 12 024 10:13 AM EDT documented as of this encounter Care Teams Driver Salesman Relationship Specialty Start Date End Date Olivia Martinez FNP [address] [place] [address] PCP - General Family Medicine 07/29/22 06/17/24 Rik Molina MD [address] [place] [address] PCP - General Internal Medicine 06/18/24 documented as of this encounter
--- OUTSIDE RECORDS SUMMARY | 2024-11-19 12:03 | XMS_ITS | Encounter Summary ---
Author Organization [employer] Address [address] [place] [address] Care Team Providers Care Explosive Ordnance Manager Name Role Phone Olivia Martinez Primary Care Provider [phone] Name, Rik GUERRERO Primary Care Provider [phone] Encounter Details Date Type Department Care Team (Late st Contact Info) Description 01/16/2024 Telephone [facility] ADULT DENTAL [address] [place], [place] [phone] Elzbieta Nowak BDS Social History Tobacco Use Types Packs/Day Years Used Date Smoking Tobacco: Never Smokeless Tobacco: Never Alcohol Use Standard Drinks/Week Comments Not Currently 0 (1 standard drink = 0.6 oz pur e alcohol) Depression Answer Date Recorded Patient Health Questionnaire-9 Score 21 03/01/2023 Housing Stability Answer Date Recorded What is your housing situation today? I have carleebenita davidson 08/11/[address] you [...] encounter Miscellaneous Notes * Telephone Encounter - Vianey Mcmahon - 01/16/2024 12:14 PM EDT Patient tooth broke his in pain needs medicine until we can get him in jorge morning for emergency visit documented in this encounter Plan of Treatment Upcoming Encounters Date Type Department Care Team (Late st Contact Info) Description 01/22/2025 10:30 AM EDT Office Visit [facility] MEDICINE [address] [place] [address] Rik Molina MD [address] [place] [address] documented as of this encounter Visit Diagnoses Not on filedocumented in this encounter Additional Health Concerns Assessment Noted Time PHQ-9 Depression Total Score: 21 023 10:55 AM EDT documented as of this encounter Care Teams Explosive Ordnance Manager Relationship Specialty Start Date End Date Olivia Martinez FNP [address] [place] [address] PCP - General Family Medicine 07/29/22 06/17/24 Rik Molina MD [address] [place] [address] PCP - General Internal Medicine 06/18/24 documented as of this encounter
--- OUTSIDE RECORDS SUMMARY | 2024-11-19 12:03 | XMS_ITS | Encounter Summary ---
Author Organization [employer] Address [address] [facility] [place] [address] Care Team Providers Care Energy Scheduler Name Role Phone Olivia Martinez Primary Care Provider [phone] Name, Rik GUERRERO Primary Care Provider [phone] Encounter Details Date Type Department Care Team (Late st Contact Info) Description 12/26/2023 Orders Only [facility] [address] [place], [place] [phone] Olivia Martinez FNP [address] [place] [address] Social History Tobacco Use Types Packs/Day Years [...] 10:30 AM EDT Office Visit [facility] MEDICINE [address] [place] [address] Rik Molina MD [address] [place] [address] documented as of this encounter Visit Diagnoses Not on filedocumented in this encounter Additional Health Concerns Assessment Noted Time PHQ-9 Depression Total Score: 21 023 10:55 AM EDT documented as of this encounter Care Teams Energy Scheduler Relationship Specialty Start Date End Date Olivia Martinez FNP [address] [place] [address] PCP - General Family Medicine 07/29/22 06/17/24 Rik Molina MD [address] [place] [address] PCP - General Internal Medicine 06/18/24 documented as of this encounter
--- OUTSIDE RECORDS SUMMARY | 2024-11-19 12:03 | XMS_ITS | Encounter Summary ---
Author Organization [facility] Address [address] [facility] [address] [place] [address] Phone Care Team Providers Care Legal Manager Name Role Phone Marcos Morris Primary Care Provider Unavaila ble Reason for Visit * Reason Comments Med Refill Encounter Details Date Type Department Care Team (Late st Contact Info) Description 03/22/2022 Refill [facility] [address] [place] [place] [phone] Kory Nova MD Social History Tobacco Use [...] on filedocumented in this encounter Care Teams Legal Manager Relationship Specialty Start Date End Date Marcos Morris PCP - General Internal Medicine 06/02/21 documented as of this encounter
--- OUTSIDE RECORDS SUMMARY | 2024-11-19 12:03 | XMS_ITS | Encounter Summary ---
Author Organization [employer] Address [address] [place] [address] [address] [place] [address] Care Team Providers Care Dairy Scientist Name Role Phone Olivia Martinez Primary Care Provider [phone] NameRik MD Primary Care Provider [phone] Reason for Visit * Reason Comments Med Refill Encounter Details Date Type Department Care Team (Late st Contact Info) Description 07/17/2023 Refill [facility] MEDICINE [address] [place] [address] Olivia Martinez FNP [address] [place] [address] Primary hypertension Social History Tobacco Use Types [...] Description 01/22/2025 10:30 AM EDT Office Visit [facility] MEDICINE [address] [place] [phone] Name, MD Rik [address] [place] [address] documented as of this encounter Visit Diagnoses Diagnosis Primary hypertension Unspecified essential hypertension documented in this encounter Additional Health Concerns Assessment Noted Time PHQ-9 Depression Total Score: 21 023 10:55 AM EDT documented as of this encounter Care Teams Dairy Scientist Relationship Specialty Start Date End Date Olivia Martinez FNP [address] [place] [address] PCP - General Family Medicine 07/29/22 06/17/24 Name, MD Rik [address] [place] [address] PCP - General Internal Medicine 06/18/24 documented as of this encounter
[2024-11-19 13:22] LABS: MANUAL DIFF FLAG NO
[2024-11-19 13:34] LABS: Basophils Absolute Auto 0.1 X10*3/uL (0.0-0.2); Basophils Percent Auto 0.9 % (0-2); Eosinophils Absolute Auto 0.2 X10*3/uL (0.0-0.4); Eosinophils Percent Auto 2.1 % (0-4); Hematocrit 48.4 % (42.0-52.0); Hemoglobin 14.9 g/dl (14.0-18.0); Imm Gran Abs Auto 0.04 X10*3/uL (0.00-0.03); Imm Gran Pct Auto 0.5 % (0.0-0.4); Lymphocytes Absolute Auto 2.2 X10*3/uL (1.2-4.9); Lymphocytes Percent Auto 24.9 % (20-40); Mean Corpuscular HGB Conc 30.8 g/dl (31.0-36.0); Mean Corpuscular Hemoglobin 25.3 pg (27.0-33.0); Mean Corpuscular Volume 82.2 fL (80.0-98.0); Mean Platelet Volume 11.2 fL (9.4-12.4); Monocytes Absolute Auto 0.7 X10*3/uL (0.1-1.2); Monocytes Percent Auto 8.1 % (2-11); Neutrophils Absolute Auto 5.6 x10*3/uL (2.0-8.3); Neutrophils Percent Auto 63.5 % (45-73); Platelet Count 212 X10*3/uL (160-400); Red Blood Count 5.89 X10*6/uL (4.60-5.80); Red Cell Distribution Width 15.3 % (11.0-16.0); White Blood Count 8.8 X10*3/uL (4.8-10.8)
[2024-11-19 13:51] LABS: Alanine Aminotransferase 17 U/L (0-40); Albumin Level 4.4 g/dL (3.5-5.0); Alkaline Phosphatase 139 U/L (39-117); Anion Gap 13 (12-20); Aspartate Amino Transferase 24 U/L (5-37); Bilirubin Total 0.7 mg/dL (0.0-1.0); Blood Urea Nitrogen 19 mg/dL (9-16); Calcium 10.1 mg/dL (8.4-10.2); Carbon Dioxide 28 mmol/L (22-29); Chloride 106 mmol/L (96-108); Cholesterol 99 mg/dL (<200); Estimated Glomerular Filt Rate 51; Glucose Random 151 mg/dL (60-115); HDL Cholesterol 26 mg/dL (>40); LDL Cholesterol Calculated 35 mg/dL (<100); Potassium 4.3 mmol/L (3.3-5.1); Sodium 143 mmol/L (135-145); Total Protein 7.8 g/dL (6.5-8.0); Triglycerides 194 mg/dL (<150)
[2024-11-19 14:29] LABS: Microalbum/Creatinine Ratio Ur 160.5 ug/mg cr (<30)
== END 2024-11-19 10:54 | disposition home or self-care (01) ==
LOC: HO.HHCL 10:53
PROVIDERS: Visit Provider Internal Medicine Geriatric Medicine
DX: N18.30 Chronic kidney disease, stage 3 unspecified (principal); E08.22 Diabetes mellitus due to underlying condition with diabetic chronic kidney disease; I25.10 Atherosclerotic heart disease of native coronary artery without angina pectoris
CPT/HCPCS: 36415; 80053; 80061; 82043; 82570; 85025